=== PATIENT | male | born 1990 | race Caucasian/White ===

== ENCOUNTER 2016-10-19 09:56 | Emergency (ER) | payer OTHER ==
[~2016-10-19 09:56] MED LIST: BUSP1TAB PO; CLIN1CAP5 PO; INVE234I IM; PALI1TAB3 PO; SERO50TA PO; SERT-138 PO; SERT-141 PO; TRAZ25TA PO; TRAZ50TA4 PO; TRAZO50TA PO; XANA0.5T PO; XANA1TAB2 PO; ZOLO100T PO; ZOLO50TA PO
--- NOTE | 2016-10-19 10:36 | EDDOCDS ---
Physician Documentation [facility] Name: Chris Mckinney Age: 26 yrs Sex: Male : 1990 Arrival Date: 10/19/2016 Time: 09:56 Bed TR8 Private MD: Diandra Antonio Disposition: 10/19/16 10:26 Discharged to Home/Self Care. Impression: Cellulitis and abscess of mouth, Dental caries, Gingivitis and periodontal diseases. - Condition is Stable. - Discharge Instructions: Dental Abscess, Dental Pain, Gingivitis, [id number]-[id number]. - Prescriptions for Clindamycin HCl 300 mg Oral Capsule - take 1 capsule by ORAL route every 6 hours; 40 capsule. - Medication Reconciliation, Local Pharmacy Hours form. - Follow up: Diandra Antonio; When: Call to arrange an appointment; Reason: Further diagnostic work-up, Recheck today's complaints, Continuance of care. - Problem is new. - Symptoms are unchanged. Historical: - Allergies: PENICILLINS (Anaphylaxis); - Home Meds: 1. Invega Sustenna 234 mg/1.5 mL intramuscular syrg 1.5 mL once moly (Last dose: 09/2016) 2. trazodone 25 mg Oral tab 1 tab nightly (Last dose: 10/18/2016) 3. Zoloft 200 mg Oral tab 1 tab once daily (Last dose: 10/19/2016 08:00) - PMHx: ADD; ADHD; Anxiety; Bipolar disorder; Depression; OCD; ODD; Tourette's Syndrome; - PSHx: none; - Social history: Smoking status: Patient uses tobacco products, light tobacco smoker. No barriers to communication noted, The patient speaks fluent Gambian. - Family history: Not pertinent. - : The pt / caregiver states he / she is not on anticoagulants. Home medication list is obtained from the patient. - Exposure Risk Screening:: None identified. Vital Signs: 10/19 09:57 BP 154 / 85; Pulse 94; Resp 18; Temp 97.1(O); Pulse Ox 99% ; Weight 63.5 kg / 139.99 elp lbs; Height 5 ft. 11 in. (180.34 cm); Pain 8/10; 09:57 Body Mass Index 19.53 (63.50 kg, 180.34 cm) elp MDM: 10:34 Financial registration complete. lg Signatures: Zoë Golden, RN RN dls Berenice Horton, Reg Reg lg Alistair Myers PA PA btw Castle, Jennifer, RN RN jc4 MTDD
--- NOTE | 2016-10-19 10:37 | EDDOCDS ---
Nurse's Notes [facility] Name: Chris Mckinney Age: 26 yrs Sex: Male : 1990 Arrival Date: 10/19/2016 Time: 09:56 Bed TR8 Private MD: Diandra Antonio Diagnosis: Cellulitis and abscess of mouth;Dental caries;Gingivitis and periodontal diseases Presentation: 10/19 10:06 Presenting complaint: Patient states: left jaw swelling since yesterday. States has jc4 appointment with [facility] on 10/21. Adult Sepsis Screening: The patient does not have new or worsening altered mentation. Patient's respiratory rate is less than 22. Systolic blood pressure is greater than 100. Patient has a qSOFA score of 0- Negative Sepsis Screen. Suicide/Homicide risk assessment- the patient denies having any suicidal and/or homicidal ideations and does not present with any other emotional, behavioral or mental health complaints. Status: Patient is not a sales service rep or dependent. Transition of care: patient was not received from another setting of care. 10:06 Acuity: SALMA Level 5 jc4 10:06 Method Of Arrival: Walkin/Carried/Asstd jc4 Triage Assessment: 10:08 General: Appears in no apparent distress. Pain: Pain currently is 8 out of 10 on a pain jc4 scale. Pt Declines HIV testing. Historical: - Allergies: PENICILLINS (Anaphylaxis); - Home Meds: 1. Invega Sustenna 234 mg/1.5 mL intramuscular syrg 1.5 mL once moly (Last dose: 09/2016) 2. trazodone 25 mg Oral tab 1 tab nightly (Last dose: 10/18/2016) 3. Zoloft 200 mg Oral tab 1 tab once daily (Last dose: 10/19/2016 08:00) - PMHx: ADD; ADHD; Anxiety; Bipolar disorder; Depression; OCD; ODD; Tourette's Syndrome; - PSHx: none; - Social history: Smoking status: Patient uses tobacco products, light tobacco smoker. No barriers to communication noted, The patient speaks fluent German. - Family history: Not pertinent. - : The pt / caregiver states he / she is not on anticoagulants. Home medication list is obtained from the patient. - Exposure Risk Screening:: None identified. Screenin:33 Screening information is obtained from the patient. Primary language is German. Fall dls risk: No risks identified. Assistance ADL's: requires no assistance with activities of daily living. Abuse/DV Screen: The patient / caregiver reports he/she is: not in a situation that causes fear, pain or injury. Nutritional screening: No deficits noted. Advance Directives: Currently, there is no health care proxy. There is no active DNR order. There is no living will. There is no Power of Beader Tender. Advance directive information has not previously been placed in an [facility] medical record. home support is adequate. Assessment: 10:33 General: Appears uncomfortable, well developed, well nourished, well groomed, Behavior dls is cooperative. Awake, alert, oriented. Skin warm and dry. Moves all extremities. Bilateral breath sounds clear. Respirations unlabored. Abdomen soft, non-tender. No apparent distress. The patient / caregiver is instructed regarding the plan of care and ED course. Vital Signs: 09:57 BP 154 / 85; Pulse 94; Resp 18; Temp 97.1(O); Pulse Ox 99% ; Weight 63.5 kg; Height 5 elp ft. 11 in. (180.34 cm); Pain 8/10; 09:57 Body Mass Index 19.53 (63.50 kg, 180.34 cm) [facility] Vitals: 09:57 Log In Time: October 19, 2016 at 09:55. [facility] ED Course: 09:57 Patient visited by Nilam Leong PCA. elp 09:57 Diandra Antonio is Private Physician. elp 09:57 Patient moved to Waiting elp 09:58 Patient visited by Nilam Leong PCA. elp 09:58 Patient moved to Pre RCE elp 10:07 Triage Initiated jc4 10:09 Patient moved to Triage 1 jc4 10:12 [facility]. btw 10:12 Candi Noe MD is Attending Physician. btw 10:12 Patient visited by Alistair Myers PA. btw 10:25 Diandra Antonio is Referral Physician. btw 10:32 Patient moved to TR8 dls 10:33 Patient has correct armband on for positive identification. Bed in low position. Call dls light in reach. 10:34 No IV's were initiated during this patient's visit. No procedures done that require dls assistance. Order Results: There are currently no results for this order. Outcome: 10:26 Discharge ordered by Provider. btw 10:33 The following High Risk Discharge criteria are identified: None. Discharged to home dls ambulatory. Condition: stable. Discharge instructions given to patient, Instructed on discharge instructions, follow up and referral plans. medication usage, Demonstrated understanding of instructions, medications, Pt was receptive of discharge instructions/ teaching. Prescriptions given X 1. No special radiology studies were completed. 10:34 Discharge Assessment: Patient awake, alert and oriented x 3. No cognitive and/or dls functional deficits noted. Patient verbalized understanding of disposition instructions. patient administered narcotics - no. The following High Risk Discharge criteria are identified: None. Discharged to home ambulatory. Property sent home with patient. 10:35 Patient left the ED. dls Signatures: Zoë Golden, RN RN Alistair Rahman PA PA btw Castle, Jennifer RN RN jc4 Nilam Leong, OLEGARIO CAUL DRESSER elp ALBERTO
--- NOTE | 2016-10-22 10:49 | EDDOCDS ---
Nurse's Notes [facility] Name: Chris Mckinney Age: 26 yrs Sex: Male : 1990 Arrival Date: 10/19/2016 Time: 09:56 Bed TR8 Private MD: Diandra Antonio Diagnosis: Cellulitis and abscess of mouth;Dental caries;Gingivitis and periodontal diseases Presentation: 10/19 10:06 Presenting complaint: Patient states: left jaw swelling since yesterday. States has jc4 appointment with [facility] on 10/21. Adult Sepsis Screening: The patient does not have new or worsening altered mentation. Patient's respiratory rate is less than 22. Systolic blood pressure is greater than 100. Patient has a qSOFA score of 0- Negative Sepsis Screen. Suicide/Homicide risk assessment- the patient denies having any suicidal and/or homicidal ideations and does not present with any other emotional, behavioral or mental health complaints. Status: Patient is not a x ray service technician or dependent. Transition of care: patient was not received from another setting of care. 10:06 Acuity: SALMA Level 5 jc4 10:06 Method Of Arrival: Walkin/Carried/Asstd jc4 Triage Assessment: 10:08 General: Appears in no apparent distress. Pain: Pain currently is 8 out of 10 on a pain jc4 scale. Pt Declines HIV testing. Historical: - Allergies: PENICILLINS (Anaphylaxis); - Home Meds: 1. Invega Sustenna 234 mg/1.5 mL intramuscular syrg 1.5 mL once moly (Last dose: 09/2016) 2. trazodone 25 mg Oral tab 1 tab nightly (Last dose: 10/18/2016) 3. Zoloft 200 mg Oral tab 1 tab once daily (Last dose: 10/19/2016 08:00) - PMHx: ADD; ADHD; Anxiety; Bipolar disorder; Depression; OCD; ODD; Tourette's Syndrome; - PSHx: none; - Social history: Smoking status: Patient uses tobacco products, light tobacco smoker. No barriers to communication noted, The patient speaks fluent Honduran. - Family history: Not pertinent. - : The pt / caregiver states he / she is not on anticoagulants. Home medication list is obtained from the patient. - Exposure Risk Screening:: None identified. Screenin:33 Screening information is obtained from the patient. Primary language is Honduran. Fall dls risk: No risks identified. Assistance ADL's: requires no assistance with activities of daily living. Abuse/DV Screen: The patient / caregiver reports he/she is: not in a situation that causes fear, pain or injury. Nutritional screening: No deficits noted. Advance Directives: Currently, there is no health care proxy. There is no active DNR order. There is no living will. There is no Power of Edgerman. Advance directive information has not previously been placed in an [facility] medical record. home support is adequate. Assessment: 10:33 General: Appears uncomfortable, well developed, well nourished, well groomed, Behavior dls is cooperative. Awake, alert, oriented. Skin warm and dry. Moves all extremities. Bilateral breath sounds clear. Respirations unlabored. Abdomen soft, non-tender. No apparent distress. The patient / caregiver is instructed regarding the plan of care and ED course. Vital Signs: 09:57 BP 154 / 85; Pulse 94; Resp 18; Temp 97.1(O); Pulse Ox 99% ; Weight 63.5 kg; Height 5 elp ft. 11 in. (180.34 cm); Pain 8/10; 09:57 Body Mass Index 19.53 (63.50 kg, 180.34 cm) [facility] Vitals: 09:57 Log In Time: October 19, 2016 at 09:55. [facility] ED Course: 09:57 Patient visited by Nilam Leong PCA. elp 09:57 Diandra Antonio is Private Physician. elp 09:57 Patient moved to Waiting elp 09:58 Patient visited by Nilam Leong PCA. elp 09:58 Patient moved to Pre RCE elp 10:07 Triage Initiated jc4 10:09 Patient moved to Triage 1 jc4 10:12 [facility]air Myers [facility]. btw 10:12 Candi Noe MD is Attending Physician. btw 10:12 Patient visited by Alistair Myers PA. btw 10:25 Diandra Antonio is Referral Physician. btw 10:32 Patient moved to TR8 dls 10:33 Patient has correct armband on for positive identification. Bed in low position. Call dls light in reach. 10:34 No IV's were initiated during this patient's visit. No procedures done that require dls assistance. 10:39 [facility] Payment Agreement was scanned into [employer] and attached to record. dm19 11:53 T-Sheet-- Draft Copy was scanned into [employer] and attached to record. seh 14:10 T-Sheet-- Draft Copy was scanned into [employer] and attached to record. gb Order Results: There are currently no results for this order. Outcome: 10:26 Discharge ordered by Provider. btw 10:33 The following High Risk Discharge criteria are identified: None. Discharged to home dls ambulatory. Condition: stable. Discharge instructions given to patient, Instructed on discharge instructions, follow up and referral plans. medication usage, Demonstrated understanding of instructions, medications, Pt was receptive of discharge instructions/ teaching. Prescriptions given X 1. No special radiology studies were completed. 10:34 Discharge Assessment: Patient awake, alert and oriented x 3. No cognitive and/or dls functional deficits noted. Patient verbalized understanding of disposition instructions. patient administered narcotics - no. The following High Risk Discharge criteria are identified: None. Discharged to home ambulatory. Property sent home with patient. 10:35 Patient left the ED. dls Signatures: Zoë Golden, ANGELINE RN dls Ashtyn Blair, Reg Alistair Velazquez PA PA btw Castle, Jennifer, RN RN jc4 Nilam Leong, DEVELOPER PROGRAMMER DEVELOPER PROGRAMMER shree Hunter, Dara Goodrich dm19 Chart Complete MTDD
--- NOTE | 2016-10-22 10:49 | EDDOCDS ---
Physician Documentation [facility] Name: Chris Mckinney Age: 26 yrs Sex: Male : 1990 Arrival Date: 10/19/2016 Time: 09:56 Bed TR8 Private MD: Diandra Antonio Disposition: 10/19/16 10:26 Discharged to Home/Self Care. Impression: Cellulitis and abscess of mouth, Dental caries, Gingivitis and periodontal diseases. - Condition is Stable. - Discharge Instructions: Dental Abscess, Dental Pain, Gingivitis, Xqtz-in-[id number]. - Prescriptions for Clindamycin HCl 300 mg Oral Capsule - take 1 capsule by ORAL route every 6 hours; 40 capsule. - Medication Reconciliation, Local Pharmacy Hours form. - Follow up: Diandra Antonio; When: Call to arrange an appointment; Reason: Further diagnostic work-up, Recheck today's complaints, Continuance of care. - Problem is new. - Symptoms are unchanged. Historical: - Allergies: PENICILLINS (Anaphylaxis); - Home Meds: 1. Invega Sustenna 234 mg/1.5 mL intramuscular syrg 1.5 mL once moly (Last dose: 09/2016) 2. trazodone 25 mg Oral tab 1 tab nightly (Last dose: 10/18/2016) 3. Zoloft 200 mg Oral tab 1 tab once daily (Last dose: 10/19/2016 08:00) - PMHx: ADD; ADHD; Anxiety; Bipolar disorder; Depression; OCD; ODD; Tourette's Syndrome; - PSHx: none; - Social history: Smoking status: Patient uses tobacco products, light tobacco smoker. No barriers to communication noted, The patient speaks fluent Lebanese. - Family history: Not pertinent. - : The pt / caregiver states he / she is not on anticoagulants. Home medication list is obtained from the patient. - Exposure Risk Screening:: None identified. Vital Signs: 10/19 09:57 BP 154 / 85; Pulse 94; Resp 18; Temp 97.1(O); Pulse Ox 99% ; Weight 63.5 kg / 139.99 elp lbs; Height 5 ft. 11 in. (180.34 cm); Pain 8/10; 09:57 Body Mass Index 19.53 (63.50 kg, 180.34 cm) elp MDM: 10:34 Financial registration complete. lg 10:39 [facility] Payment Agreement was scanned into [employer] and attached to record. dm19 11:53 T-Sheet-- Draft Copy was scanned into [employer] and attached to record. se 14:10 T-Sheet-- Draft Copy was scanned into [employer] and attached to record. gb Signatures: Zoë Golden RN ANGELINE dls Ashtyn Blair, Reg Reg gb Berenice Horton, Reg Reg lg Alistair Myers PA PA btw Castle, Jennifer, RN RN jc4 Patty Hunter Diane dm19 The chart was reviewed and I authenticate all verbal orders and agree with the evaluation and treatment provided.Attachments: 10:39 [facility] Payment Agreement dm19 14:10 T-Sheet-- Draft Copy gb Chart Complete MTDD
--- NOTE | 2016-10-22 10:49 | EDDOCDS ---
Physician Documentation [facility] Name: Chris Mckinney Age: 26 yrs Sex: Male : 1990 Arrival Date: 10/19/2016 Time: 09:56 Bed TR8 Private MD: Diandra Antonio Disposition: 10/19/16 10:26 Discharged to Home/Self Care. Impression: Cellulitis and abscess of mouth, Dental caries, Gingivitis and periodontal diseases. - Condition is Stable. - Discharge Instructions: Dental Abscess, Dental Pain, Gingivitis, Yvsc-yx-Fmdh. - Prescriptions for Clindamycin HCl 300 mg Oral Capsule - take 1 capsule by ORAL route every 6 hours; 40 capsule. - Medication Reconciliation, Local Pharmacy Hours form. - Follow up: Diandra Antonio; When: Call to arrange an appointment; Reason: Further diagnostic work-up, Recheck today's complaints, Continuance of care. - Problem is new. - Symptoms are unchanged. Historical: - Allergies: PENICILLINS (Anaphylaxis); - Home Meds: 1. Invega Sustenna 234 mg/1.5 mL intramuscular syrg 1.5 mL once moly (Last dose: 09/2016) 2. trazodone 25 mg Oral tab 1 tab nightly (Last dose: 10/18/2016) 3. Zoloft 200 mg Oral tab 1 tab once daily (Last dose: 10/19/2016 08:00) - PMHx: ADD; ADHD; Anxiety; Bipolar disorder; Depression; OCD; ODD; Tourette's Syndrome; - PSHx: none; - Social history: Smoking status: Patient uses tobacco products, light tobacco smoker. No barriers to communication noted, The patient speaks fluent Stateless. - Family history: Not pertinent. - : The pt / caregiver states he / she is not on anticoagulants. Home medication list is obtained from the patient. - Exposure Risk Screening:: None identified. Vital Signs: 10/19 09:57 BP 154 / 85; Pulse 94; Resp 18; Temp 97.1(O); Pulse Ox 99% ; Weight 63.5 kg / 139.99 elp lbs; Height 5 ft. 11 in. (180.34 cm); Pain 8/10; 09:57 Body Mass Index 19.53 (63.50 kg, 180.34 cm) elp MDM: 10:34 Financial registration complete. lg 10:39 [facility] Payment Agreement was scanned into [employer] and attached to record. dm19 11:53 T-Sheet-- Draft Copy was scanned into [employer] and attached to record. se 14:10 T-Sheet-- Draft Copy was scanned into [employer] and attached to record. gb Signatures: Zoë Golden RN ANGELINE dls Ashtyn Blair, Reg Reg gb Berenice Horton, Reg Reg lg Alistair Myers PA PA btw Castle, Jennifer, RN RN jc4 Patty Hunter Diane dm19 The chart was reviewed and I authenticate all verbal orders and agree with the evaluation and treatment provided.Attachments: 10:39 [facility] Payment Agreement dm19 14:10 T-Sheet-- Draft Copy gb Chart Complete MTDD
== END 2016-10-19 10:35 | disposition home or self-care (01) ==
LOC: M ED 09:56
DX: K05.219 Aggressive periodontitis, localized, unspecified severity (principal); K02.9 Dental caries, unspecified; K05.00 Acute gingivitis, plaque induced; F90.9 Attention-deficit hyperactivity disorder, unspecified type; F41.9 Anxiety disorder, unspecified; F31.9 Bipolar disorder, unspecified; F42.9 Obsessive-compulsive disorder, unspecified; F91.3 Oppositional defiant disorder; F95.2 Tourette's disorder; F17.200 Nicotine dependence, unspecified, uncomplicated; Z79.899 Other long term (current) drug therapy; Z88.0 Allergy status to penicillin

== ENCOUNTER 2017-09-14 15:17 | Emergency (ER) | payer MEDICAID, OTHER, SELFPAY ==
[~2017-09-14] VITALS: Ht 180.3 cm; Wt 70.4 kg
[~2017-09-14 15:17] MED LIST changes: +CLIN150C14 PO; -CLIN1CAP5 PO; -SERT-141 PO; +SERT50TA PO; +TRAZ50TA11 PO; -TRAZ50TA4 PO
[2017-09-14] MEDS ORDERED: REME15TA PO (15:36)
[2017-09-14] MEDS ORDERED: NS 1,000 ML IV ONE (16:00)
--- NOTE | 2017-09-14 16:28 | REP ---
CT Head without contrast HISTORY: Altered mental status COMPARISON: 05/22/2014 There is no intraparenchymal hemorrhage, acute infarct, mass or midline shift. The ventricular system is normal in appearance. There is no extra cerebral collection. There is no fracture. The visualized sinuses are clear. IMPRESSION: There is no intracranial lesion. Signed by Jose Alfredo Rasmussen MD 09/14/2017 04:20 P
[2017-09-14 16:41] LABS: BASO # 0.1 10^3/uL (0.0-0.2); BASO % 0.5 % (0.0-1.0); EOS # 0.2 10^3/uL (0.0-0.50); EOS % 1.4 % (0.0-3.0); IMMATURE GRANULOCYTE % 0.6 % (0-0); LYMPH # 1.4 10^3/uL (1.5-6.5); LYMPH % 10.4 % (24.0-44.0); MEAN CORPUSCULAR HGB CONC 35.2 g/dl (32.0-36.5); MEAN CORPUSCULAR VOLUME 87.9 fl (80.0-96.0); MONO % 7.8 % (0.0-5.0); NEUTROPHILS # 10.5 10^3/uL (1.8-7.7); NEUTROPHILS % 79.3 % (36.0-66.0); PLATELET COUNT, AUTOMATED 290 10^3/uL (150-450); WHITE BLOOD COUNT 13.3 10^3/uL (4.0-10.0)
[2017-09-14] MEDS ORDERED: IBUPROFEN 600 MG TAB PO ONE (17:00)
[2017-09-14 17:20] LABS: ALBUMIN 4.3 GM/DL (3.2-5.2); ALBUMIN/GLOBULIN RATIO 1.23 (1.00-1.93); ALKALINE PHOSPHATASE 80 U/L (45-117); ALT/SGPT 32 U/L (12-78); ANION GAP 9 MEQ/L (8-16); AST/SGOT 17 U/L (7-37); BILIRUBIN,DIRECT 0.1 MG/DL (0.0-0.2); BILIRUBIN,TOTAL 0.6 MG/DL (0.2-1.0); BLOOD UREA NITROGEN 12 MG/DL (7-18); CALCIUM LEVEL 9.2 MG/DL (8.5-10.1); CARBON DIOXIDE LEVEL 27 MEQ/L (21-32); CHLORIDE LEVEL 102 MEQ/L (98-107); CREATININE FOR GFR 1.02 MG/DL (0.70-1.30); GLOMERULAR FILTRATION RATE > 60.0 (>60); GLUCOSE, FASTING 85 MG/DL (70-105); POTASSIUM SERUM 3.4 MEQ/L (3.5-5.1); SODIUM LEVEL 138 MEQ/L (136-145); TOTAL PROTEIN 7.8 GM/DL (6.4-8.2)
[2017-09-14 17:21] LABS: MICROSCOPIC INDICATED? MAN YES (NO)
[2017-09-14 17:27] LABS: METHADONE URINE NEGATIVE (NEGATIVE)
[2017-09-14 17:32] LABS: SQUAMOUS EPITHELIAL CELL URINE NONE SEEN /hpf (SMALL AMT)
[2017-09-14 17:37] LABS: BACTERIA, URINE NONE SEEN; HYALINE CAST, URINE NONE SEEN /lpf (0-1)
[2017-09-14 17:38] LABS: MICROSCOPIC EXAM PERFORMED
[2017-09-14 18:11] VITALS: BP 134/90
--- NOTE | 2017-09-14 18:15 | ECGEPIP ---
Stationary ECG Study [facility] - ED Test Date: 2017-09-14 Pat Name: MERRITT GRIMES Department: Room: - Gender: M Personnel Scheduler: LUCILA : 1990 Requested By: MINESH SILVERIO Order Number: [id number] Reading MD: Scar Rivero Measurements Intervals [place] Rate: 87 P: 46 [place]: 133 QRS: 38 QRSD: 94 T: 44 QT: 355 QTc: 428 Interpretive Statements SINUS RHYTHM POSSIBLE LEFT ATRIAL ENLARGEMENT Electronically Signed On 09-14-2017 18:14:44 EST by Scar Rivero
== END 2017-09-14 18:30 | disposition home or self-care (01) ==
LOC: M ED 15:17 → EDBD 15:17 → M ED 18:30
DX: R56.9 Unspecified convulsions (principal); Z72.0 Tobacco use
CPT/HCPCS: 70450; 80048; 80076; 80307; 81000; 82550; 82553; 83605; 84443; 85025; 93005; 93041; 94760; 96360; 96361; 99285; G0480

== ENCOUNTER 2018-07-25 16:36 | Emergency (ER) | payer MEDICAID ==
[2018-07-25 17:35] LABS: HEMATOCRIT 42.5 % (42.0-52.0); MEAN CORPUSCULAR HEMOGLOBIN 31.8 pg (27.0-33.0); MEAN CORPUSCULAR HGB CONC 35.3 g/dl (32.0-36.5); PLATELET COUNT, AUTOMATED 219 10^3/uL (150-450); RED BLOOD COUNT 4.72 10^6/uL (4.30-6.10); RED CELL DISTRIBUTION WIDTH 13.8 % (11.5-14.5)
[2018-07-25 17:47] LABS: AMPHETAMINES LEVEL URINE NEGATIVE (NEGATIVE); BARBITURATES URINE NEGATIVE (NEGATIVE); BENZODIAZEPINES URINE NEGATIVE (NEGATIVE); CANNABINOIDS URINE POSITIVE (NEGATIVE); COCAINE METABOLITE URINE NEGATIVE (NEGATIVE); METHADONE URINE NEGATIVE (NEGATIVE); OPIATES URINE NEGATIVE (NEGATIVE); PHENCYCLIDINE URINE NEGATIVE (NEGATIVE)
[2018-07-25 18:18] LABS: ACETAMINOPHEN LEVEL < 2.0 UG/ML (10.0-30.0); ALBUMIN 4.3 GM/DL (3.2-5.2); ALBUMIN/GLOBULIN RATIO 1.59 (1.00-1.93); ALKALINE PHOSPHATASE 58 U/L (45-117); ALT/SGPT 24 U/L (12-78); ANION GAP 6 MEQ/L (8-16); AST/SGOT 13 U/L (7-37); BILIRUBIN,DIRECT 0.2 MG/DL (0.0-0.2); BILIRUBIN,TOTAL 0.6 MG/DL (0.2-1.0); BLOOD UREA NITROGEN 19 MG/DL (7-18); CALCIUM LEVEL 8.8 MG/DL (8.5-10.1); CARBON DIOXIDE LEVEL 27 MEQ/L (21-32); CHLORIDE LEVEL 109 MEQ/L (98-107); CREATININE FOR GFR 0.89 MG/DL (0.70-1.30); ETHYL ALCOHOL (ETHANOL) < 0.003 % (0.000-0.010); GLOMERULAR FILTRATION RATE > 60.0 (>60); GLUCOSE, FASTING 131 MG/DL (70-100); POTASSIUM SERUM 3.5 MEQ/L (3.5-5.1); SALICYLATE LEVEL 5.4 MG/DL (5.0-30.0); SODIUM LEVEL 142 MEQ/L (136-145); THYROID STIMULATING HORMONE 0.971 uIU/ML (0.358-3.740)
[2018-07-25] MEDS: LORazepam 0.5 MG TAB PO (18:28)
== END 2018-07-26 00:03 ==
LOC: M ED 07-26 00:03
DX: R45.850 Homicidal ideations (principal)
CPT/HCPCS: 93005

== ENCOUNTER → 2019-05-11 | Outpatient (CLI) | payer OTHER ==
[~2019-05-11] MED LIST changes: +REME15TA PO; +SERT-141 PO; -SERT50TA PO; +TRAZ-252 PO; +TRAZ1TAB10 PO; +TRAZ1TAB6 PO; -TRAZ25TA PO; -TRAZ50TA11 PO; -TRAZO50TA PO
--- NOTE | 2019-05-12 09:27 | ECGEPIP ---
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
== END ==
LOC: M EKG 12:57
PROVIDERS: ATTEND Nurse Practitioner Psychiatric/Mental Health
DX: F90.2 Attention-deficit hyperactivity disorder, combined type (principal)

== ENCOUNTER 2019-06-17 14:05 | Emergency (ER) | payer OTHER ==
[~2019-06-17] VITALS: Ht 182.9 cm; Wt 68.2 kg
[2019-06-17] MEDS ORDERED: BANO25TA PO (14:31)
[2019-06-17] MEDS ORDERED: REME15TA2 PO (14:31)
[2019-06-17] MEDS ORDERED: NIFE30TA50 PO (14:31)
[2019-06-17] MEDS ORDERED: FLUV25TA2 PO (14:31)
[2019-06-17] MEDS ORDERED: CLONI1TA PO (14:31)
[2019-06-17] MEDS ORDERED: HALO5TA PO (14:31)
[2019-06-17] MEDS ORDERED: TOPA100T12 PO (14:31)
[2019-06-17] MEDS ORDERED: OLAN15TA PO (14:31)
[2019-06-17] MEDS ORDERED: SIMV20TA2 PO (14:31)
[2019-06-17 15:15] LABS: HEMATOCRIT 45.5 % (42.0-52.0); HEMOGLOBIN 15.9 g/dl (13.5-17.5); MEAN CORPUSCULAR HEMOGLOBIN 31.4 pg (27.0-33.0); MEAN CORPUSCULAR HGB CONC 34.9 g/dl (32.0-36.5); MEAN CORPUSCULAR VOLUME 89.9 fl (80.0-96.0); PLATELET COUNT, AUTOMATED 197 10^3/uL (150-450); RED BLOOD COUNT 5.06 10^6/uL (4.30-6.10); WHITE BLOOD COUNT 10.7 10^3/uL (4.0-10.0)
[2019-06-17 15:47] LABS: AMPHETAMINES LEVEL URINE NEGATIVE (NEGATIVE); BARBITURATES URINE NEGATIVE (NEGATIVE); BENZODIAZEPINES URINE NEGATIVE (NEGATIVE); CANNABINOIDS URINE POSITIVE (NEGATIVE); COCAINE METABOLITE URINE NEGATIVE (NEGATIVE); METHADONE URINE NEGATIVE (NEGATIVE); OPIATES URINE NEGATIVE (NEGATIVE); PHENCYCLIDINE URINE NEGATIVE (NEGATIVE)
[2019-06-17 16:11] LABS: ACETAMINOPHEN LEVEL < 2.0 UG/ML (10.0-30.0); ALBUMIN 4.7 GM/DL (3.2-5.2); ALT/SGPT 17 U/L (12-78); BILIRUBIN,DIRECT 0.2 MG/DL (0.0-0.2); BILIRUBIN,TOTAL 0.6 MG/DL (0.2-1.0); BLOOD UREA NITROGEN 19 MG/DL (7-18); CALCIUM LEVEL 9.4 MG/DL (8.5-10.1); CARBON DIOXIDE LEVEL 17 MEQ/L (21-32); CHLORIDE LEVEL 114 MEQ/L (98-107); CREATININE FOR GFR 1.11 MG/DL (0.70-1.30); ETHYL ALCOHOL (ETHANOL) < 0.003 % (0.000-0.010); GLOMERULAR FILTRATION RATE > 60.0 (>60); GLUCOSE, FASTING 96 MG/DL (70-100); POTASSIUM SERUM 3.6 MEQ/L (3.5-5.1); SALICYLATE LEVEL 6.4 MG/DL (5.0-30.0); SODIUM LEVEL 141 MEQ/L (136-145); THYROID STIMULATING HORMONE 0.416 uIU/ML (0.358-3.740); TOTAL PROTEIN 7.7 GM/DL (6.4-8.2)
[2019-06-17] MEDS ORDERED: NICOTINE 21MG/24HR 1 EA TRANSDERMAL TD ONE (16:45)
[2019-06-17] MEDS ORDERED: ACETAMINOPHEN 500 MG TAB PO ONE (17:15)
[2019-06-18] MEDS ORDERED: cloNIDine 0.1 MG TAB PO ONE (01:30)
[2019-06-18] MEDS ORDERED: OLANZapine 5 MG TAB PO ONE (01:30)
[2019-06-18] MEDS ORDERED: MIRTAZAPINE 15 MG TAB PO ONE (01:43)
--- NOTE | 2019-06-18 07:14 | ECGEPIP ---
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
[2019-06-18 08:32] VITALS: BP 131/85
== END 2019-06-18 08:35 ==
LOC: M ED 14:05
DX: F29 Unspecified psychosis not due to a substance or known physiological condition (principal); F17.200 Nicotine dependence, unspecified, uncomplicated; F31.9 Bipolar disorder, unspecified; F90.9 Attention-deficit hyperactivity disorder, unspecified type; F41.9 Anxiety disorder, unspecified; F42.9 Obsessive-compulsive disorder, unspecified; F95.2 Tourette's disorder; Z79.899 Other long term (current) drug therapy; Z88.0 Allergy status to penicillin
CPT/HCPCS: 80048; 80076; 80307; 84443; 85027; 93005; 99284; G0480

== ENCOUNTER 2019-07-02 12:28 | Emergency (ER) | payer OTHER ==
[~2019-07-02] VITALS: Ht 182.9 cm; Wt 68.2 kg
[~2019-07-02 12:28] MED LIST changes: +BANO25TA PO; +CLONI1TA PO; +FLUV25TA2 PO; +HALO5TA PO; +NIFE30TA50 PO; +OLAN15TA PO; +REME15TA2 PO; +SIMV20TA2 PO; +TOPA100T12 PO
[2019-07-02] MEDS ORDERED: ATOR1TAB19 (13:14)
[2019-07-02 16:26] VITALS: BP 139/94
== END 2019-07-02 16:28 | disposition home or self-care (01) ==
LOC: EDBD 12:28 → M ED 12:28
DX: F41.9 Anxiety disorder, unspecified (principal); G43.909 Migraine, unspecified, not intractable, without status migrainosus; F95.2 Tourette's disorder; I10 Essential (primary) hypertension; E78.00 Pure hypercholesterolemia, unspecified; J45.909 Unspecified asthma, uncomplicated; F90.9 Attention-deficit hyperactivity disorder, unspecified type; F31.9 Bipolar disorder, unspecified; F42.9 Obsessive-compulsive disorder, unspecified; Z79.899 Other long term (current) drug therapy; Z88.0 Allergy status to penicillin

== ENCOUNTER 2019-07-02 17:21 | Emergency (ER) | payer OTHER ==
[~2019-07-02] VITALS: Ht 182.9 cm; Wt 68.2 kg
[~2019-07-02 17:21] MED LIST changes: +ATOR1TAB19
[2019-07-02 18:30] LABS: HEMATOCRIT 46.2 % (42.0-52.0); HEMOGLOBIN 15.9 g/dl (13.5-17.5); MEAN CORPUSCULAR HEMOGLOBIN 31.9 pg (27.0-33.0); MEAN CORPUSCULAR HGB CONC 34.4 g/dl (32.0-36.5); MEAN CORPUSCULAR VOLUME 92.8 fl (80.0-96.0); PLATELET COUNT, AUTOMATED 248 10^3/uL (150-450); RED BLOOD COUNT 4.98 10^6/uL (4.30-6.10); WHITE BLOOD COUNT 7.6 10^3/uL (4.0-10.0)
[2019-07-02 18:57] LABS: AMPHETAMINES LEVEL URINE NEGATIVE (NEGATIVE); BARBITURATES URINE NEGATIVE (NEGATIVE); BENZODIAZEPINES URINE NEGATIVE (NEGATIVE); CANNABINOIDS URINE POSITIVE (NEGATIVE); COCAINE METABOLITE URINE NEGATIVE (NEGATIVE); METHADONE URINE NEGATIVE (NEGATIVE); OPIATES URINE NEGATIVE (NEGATIVE); PHENCYCLIDINE URINE NEGATIVE (NEGATIVE)
[2019-07-02 19:10] LABS: ACETAMINOPHEN LEVEL < 2.0 UG/ML (10.0-30.0); ALBUMIN 4.5 GM/DL (3.2-5.2); ALT/SGPT 20 U/L (12-78); BILIRUBIN,DIRECT 0.1 MG/DL (0.0-0.2); BILIRUBIN,TOTAL 0.2 MG/DL (0.2-1.0); BLOOD UREA NITROGEN 19 MG/DL (7-18); CALCIUM LEVEL 9.1 MG/DL (8.5-10.1); CARBON DIOXIDE LEVEL 22 MEQ/L (21-32); CHLORIDE LEVEL 111 MEQ/L (98-107); CREATININE FOR GFR 0.99 MG/DL (0.70-1.30); ETHYL ALCOHOL (ETHANOL) < 0.003 % (0.000-0.010); GLOMERULAR FILTRATION RATE > 60.0 (>60); GLUCOSE, FASTING 117 MG/DL (70-100); POTASSIUM SERUM 3.8 MEQ/L (3.5-5.1); SODIUM LEVEL 141 MEQ/L (136-145); TOTAL PROTEIN 7.6 GM/DL (6.4-8.2)
[2019-07-02 21:53] VITALS: BP 133/82
== END 2019-07-02 21:56 | disposition home or self-care (01) ==
LOC: M ED 17:21
DX: F41.0 Panic disorder [episodic paroxysmal anxiety] (principal); F31.9 Bipolar disorder, unspecified; F42.9 Obsessive-compulsive disorder, unspecified; F90.9 Attention-deficit hyperactivity disorder, unspecified type; Z79.899 Other long term (current) drug therapy; Z88.0 Allergy status to penicillin
CPT/HCPCS: 36415; 80048; 80076; 80307; 84443; 85027; 99284; G0480

== ENCOUNTER → 2019-07-08 | Outpatient (CLI) | payer OTHER ==
[~2019-07-08] MED LIST changes: -SIMV20TA2 PO; +SIMV20TA22 PO
--- NOTE | 2019-07-08 21:18 | ECGEPIP ---
[facility] Test Date: 2019-07-08 Pat Name: MERRITT GRIMES Department: Room: - Gender: Male Clam Picker: DIVYA : 1990 Requested By: Clary Herndon Order Number: [id number] Reading MD: Darrian Alarcon Measurements Intervals [place] Rate: 68 P: 64 [place]: 170 QRS: 74 QRSD: 98 T: 57 QT: 387 QTc: 414 Interpretive Statements Normal sinus rhythm with sinus arrhythmia Early repolarization No significant change when compared to prior tracing of 06/17/2019 Electronically Signed on 07-08-2019 21:18:07 EDT by Darrian Alarcon
== END ==
LOC: M EKG 11:54
PROVIDERS: ATTEND Nurse Practitioner Psychiatric/Mental Health
DX: F90.0 Attention-deficit hyperactivity disorder, predominantly inattentive type (principal)

== ENCOUNTER → 2020-12-11 | Outpatient (CLI) | payer OTHER ==
[~2020-12-11] MED LIST changes: -CLIN150C14 PO; +CLIN150C15 PO; +MIRT-62 PO; -REME15TA PO
--- NOTE | 2020-12-11 15:32 | REP ---
INDICATION: RIGHT WRIST PAIN COMPARISON: None. TECHNIQUE: Four views right wrist. FINDINGS: There is no evidence of acute fracture, dislocation, or intrinsic bone disease.The joint spaces are normal. IMPRESSION: Negative right wrist series. <Electronically signed by Kenneyd Arango > 12/11/20 [id number]
== END ==
LOC: M RAD 15:12
PROVIDERS: ATTEND Physician Assistant Medical
DX: M25.531 Pain in right wrist (principal)

== ENCOUNTER 2021-08-03 21:17 | Emergency (ER) | payer OTHER ==
[~2021-08-03] VITALS: Ht 182.9 cm; Wt 68.2 kg
[~2021-08-03 21:17] MED LIST changes: -CLIN150C15 PO; +CLIN150C17 PO; -OLAN15TA PO; +OLAN15TA13 PO
--- OUTSIDE RECORDS SUMMARY | 2021-08-03 21:20 | CCD ---
Author Author Chris Perez Organization Unknown Address [address] [address] Phone Care Team Providers Care Operating Room Assistant Name Role Phone Rah Perez PCP Allergies, Adverse Reactions, Alerts Concept Allergy Name Reaction Severity Onset Date Status Documentation Date Phone Number Npid Taxonomy Code Taxonomy Desc Author Last Name Author Ju rst Name Concept Type [id number] amoxicillin difficulty breathing Active 016 [id number] Psychiatric/Mental Health Laxmi Napoles RX NORM Problem List Concept Problem Description Status Start Date Created Date Resolv ed Date Snomed Code F25.0 Schizoaffective Disorder, Bipolar type Active 08/26/2018 08/26/2018 F43.12 Post-traumatic stress disorder, chronic Active 10/29/2018 10/29/2018 F17.200 Tobacco Use Disorder, Moderate Active F12.20 Cannabis Use Disorder, Moderate Active 07/13/20 21 Medications Rx Norm Medication Route Route Concept Start Date Stop Date Dosage Mukesh quency Duration Formula Strength Dosage Form Dosage Form Code Dosage Description Medication Id Account Npid Author First Name Author Last Name Taxonomy Code Taxonomy Desc Phone Number [id number] clonazepam by mouth [id number] 07/03/2021 08/02/2021 twice a day 30 0.5 mg tablet as needed 20468 060729 [id number] Clary Herndon [id number] Nurse Practitioner [phone] [id number] Topamax by mouth [id number] 10/09/2020 09/24/2021 twice a day 30 1 00 mg tablet 65795 [id number] [id number] Clary Herndon [id number] Nurse Nhi sánchez [id number] clonidine HCl by mouth [id number] 02/21/2021 09/24/2021 twice a day 30 0.1 mg tablet as needed 55386 [id number] [id number] Clary Herndon [id number] Nurse Practitioner [phone] 359244 Zyprexa by mouth [id number] 02/21/2021 09/24/2021 at bedtime 30 20 m g tablet 09315 567869 [id number] Clary Herndon [id number] Nurse Yoel ctitioner [id number] 014732 lamotrigine by mouth [id number] 03/21/2021 09/24/2021 every morning 30 150 mg tablet 50231 730304 [id number] Clary Herndon [id number] Nurse Practitioner [phone] 322483 mirtazapine by mouth [id number] 03/21/2021 09/24/2021 at bedtime 30 45 mg tablet 14164 260421 [id number] Clary Herndon [id number] Nurse P ractitioner [id number] 127925 topiramate by mouth [id number] 06/26/2021 09/24/2021 once a day 30 50 mg tablet 53146 145070 [id number] Clary Herndon [id number] Nurse P ractitioner [id number] Social History Social History Element Description Concept Effective Date Smoking Status Current every day smoker [id number] Immunizations No Data in Section Vital Signs No Data in Section Procedures Date Concept Id Description Targeted Site Concept Targeted Site Concept Type 07/13/2021 [id number] Brief Individual Psychotherapy - 30 min CPT Patient has no history of implantable de vices Encounters Encounter Start Date End Date Encounter Type Description Diagnosis Di agnosis Desc Location Author First Name Author Last Name Npid Taxonomy Cod e Taxonomy Desc Phone Number Location Addr1 Location Addr2 Location [facility] Location [facility] Location [facility] [id number] 07/13/2021 07/13/2021 [id number] Brief Individual Psychoth erapy - 30 min F25.0 Schizoaffective disorder, bipolartype [facility] [id number] Art Therapist [id number] [address] [address] Plan of Treatment No Data in Section Lab Results No Data in Section Instructions No Data in Section Insurance Providers Insurance Id Policy Effective Date Policy Thru Date Company N claudia [id number] 2018 [employer]ob suggs
--- OUTSIDE RECORDS SUMMARY | 2021-08-03 21:20 | CCD ---
Author Author [facility] Organization [facility] Address Unknown Phone Unavailable Care Team Providers Care Schedule Analyst Name Role Phone Rha Perez Unavailable YANICK, H JIMBO STRAIGHTENING MACHINE FEEDER Unavailable Unavailable YANICK, H JIMBO STRAIGHTENING MACHINE FEEDER Unavailable Unavailable YANICK, H JIMBO STRAIGHTENING MACHINE FEEDER Unavailable Unavailable YANICK, H JIMBO STRAIGHTENING MACHINE FEEDER Unavailable Unavailable YANICK, H JIMBO STRAIGHTENING MACHINE FEEDER Unavailable Unavailable YANICK, H JIMBO STRAIGHTENING MACHINE FEEDER Unavailable Unavailable YANICK, H JIMBO STRAIGHTENING MACHINE FEEDER Unavailable Unavailable YANICK, H JIMBO STRAIGHTENING MACHINE FEEDER Unavailable Unavailable YANICK, H JIMBO STRAIGHTENING MACHINE FEEDER Unavailable Unavailable Kay Obrien Unavailable Unavailable Re-disclosure Warning The records that you are about to access may contain information from federally-assisted alcohol or drug abuse programs. If such information is present, then the following federally mandated warning applies: This information has been disclosed to you from records protected by federal confidentiality rules (42 CFR part 2). The federal rules prohibit you from making any further disclosure of this information unless further disclosure is expressly permitted by the written consent of the person to whom it pertains or as otherwise permitted by 42 CFR part 2. A general authorization for the release of medical or other information is NOT sufficient for this purpose. The Federal rules restrict any use of the information to criminally investigate or prosecute any alcohol or drug abuse patient.The records that you are about to access may contain highly sensitive health information, the redisclosure of which is protected by Article 27-F of the [place] Public Health law. If you continue you may have access to information: Regarding HIV / AIDS; Provided by facilities licensed or operated by the [facility] Office of Mental Health; or Provided by the [facility] Office for People With Developmental Disabilities. If such information is present, then the following [facility] mandated warning applies: This information has been disclosed to you from confidential records which are protected by state law. State law prohibits you from making any further disclosure of this information without the specific written consent of the person to whom it pertains, or as otherwise permitted by law. Any unauthorized further disclosure in violation of state law may result in a fine or retirement sentence or both. A general authorization for the release of medical or other information is NOT sufficient authorization for further disc losure. Allergies and Adverse Reactions Type Description Substance Reaction Status Data Source(s ) Propensity to adverse reactions to substance amoxicillin Amoxicillin 500 MG Oral Capsule difficulty breathing Active [facility] ([facility]) Propensity to adverse reactions to substance amoxicillin Amoxicillin 500 MG Oral Capsule difficulty breathing Active [facility] ([facility]) Encounters Encounter Providers Location Date Indications Data Source(s ) Brief Individual Psychotherapy - 30 min Attender: [facility] 08/03/2021 11:45:00 AM EDT - 08/03/2021 11:45:00 AM EDT [facility] ([facility]) Attender: [facility] 08/03/2021 12:00:00 AM EDT [facility] ([facility]) Brief Individual Psychotherapy - 30 min Attender: [facility] 07/13/2021 11:15:00 AM EDT - 07/13/2021 11:15:00 AM EDT [facility] ([facility]) Attender: [facility] 07/13/2021 12:00:00 AM EDT [facility] ([facility]) Attender: [facility] 06/07/2021 12:00:00 AM EDT [facility] ([facility]) Extended Individual Psychotherapy - 45 min Attender: [facility] 06/06/2021 01:00:00 AM EDT - 06/06/2021 01:00:00 AM EDT [facility] ([facility]) Extended Individual Psychotherapy - 45 min Attender: [facility] 03/29/2021 05:00:00 AM EDT - 03/29/2021 05:00:00 AM EDT [facility] ([facility]) [facility] 12:00:00 AM EDT [facility] ([facility]) Extended Individual Psychotherapy - 45 min Attender: [facility] 03/15/2021 05:00:00 AM EDT - 03/15/2021 05:00:00 AM EDT [facility] ([facility]) [facility] 03/15/2021 12:00:00 AM EDT [facility] ([facility]) Extended Individual Psychotherapy - 45 min Attender: [facility] 01/16/2021 01:15:00 AM EDT - 01/16/2021 01:15:00 AM EDT [facility] ([facility]) [facility]: [facility] 01/16/2021 12:00:00 AM EDT [facility] ([facility]) Outpatient Attender: JIMBO FANG NP [facility] hattie 01/11/2021 02:00:00 AM EDT - 01/11/2021 02:00:00 AM EDT [facility] ([facility]) Attender: JIMBO FANG NP 01/11/2021 12:00:00 AM EDT [facility] ([facility]) Brief Individual Psychotherapy - 30 min Attender: [facility] 12/28/2020 05:00:00 AM EDT - 12/28/2020 05:00:00 AM EDT [facility] ([facility]) Attender: Leomehumberto Perez 12/28/2020 12:00:00 AM EDT [facility] ([facility]) Outpatient Attender: JIMBO FANG NP [facility] hattie 12/14/2020 02:00:00 AM EST - 12/14/2020 02:00:00 AM EST [facility] ([facility]) Attender: JIMBO FANG NP 12/14/2020 12:00:00 AM EST [facility] ([facility]) TEMPMHCTelemed-Family and client [facility] 10:00:00 AM EST - 11/09/2020 10:00:00 AM EST [facility] ([facility]) Attender: Kay Obrien 11/09/2020 12:00:00 AM EST [facility] ([facility]) TEMPMHCTelemed-Family and client 1 hr. Attender: Kay Obrien [facility] 10/26/2020 10:00:00 AM EST - 10/26/2020 10:00:00 AM EST [facility] ([facility]) Attender: Kay Obrien 10/26/2020 12:00:00 AM EST [facility] ([facility]) TEMPMHCTelemed-Family and client 1 hr. [facility]/12[facility] 10:00:00 AM EST - 10/12/2020 10:00:00 AM EST [facility] ([facility]) Attender: Kay Obrien 10/12/2020 12:00:00 AM EST [facility] ([facility]) Outpatient Attender: JIMBO FANG NP [facility] Octavio kuhn 10/09/2020 02:30:00 AM EST - 10/09/2020 02:30:00 AM EST [facility] ([facility]) Attender: JIMBO FANG NP 10/09/2020 12:00:00 AM EST [facility] ([facility]) Psychotherapy - Family & Client 1 hour Attender: Kay Micah [facility] 09/28/2020 11:00:00 AM EST - 09/28/2020 11:00:00 AM EST [facility] ([facility]) Attender: Kay Obrien 09/28/2020 12:00:00 AM EST [facility] ([facility]) [id number]"Psychotherapy Attender: Kay Pryor [facility] 09/22/2020 10:00:00 AM EST - 09/22/2020 10:00:00 AM EST [facility] ([facility]) Attender: Kay Obrien 09/22/2020 12:00:00 AM EST [facility] ([facility]) Psychotherapy - Family & Client 1 hour Attender: Kayyumiko Obrien [facility] 08/17/2020 11:00:00 AM EST - 08/17/2020 11:00:00 AM EST [facility] ([facility]) Attender: Kay Obrien 08/17/2020 12:00:00 AM EST [facility] ([facility]) Outpatient Attender: JIMBO FANG NP [facility] Octavio kuhn 07/31/2020 01:00:00 AM EDT - 07/31/2020 01:00:00 AM EDT [facility] ([facility]) Attender: JIMBO FANG NP 07/31/2020 12:00:00 AM EDT [facility] ([facility]) [id number]"Psychotherapy Attender: Kay Micah Pryor [facility] Bhavesh 07/13/2020 10:00:00 AM EDT - 07/13/2020 10:00:00 AM EDT [facility] ([facility]) Attender: Kay Obrien 07/13/2020 12:00:00 AM EDT [facility] ([facility]) Outpatient Attender: JIMBO FANG NP [facility] Octavio kuhn 07/04/2020 10:30:00 AM EDT - 07/04/2020 10:30:00 AM EDT [facility] ([facility]) Attender: JIMBO FANG NP 07/04/2020 12:00:00 AM EDT [facility] ([facility]) TEMPMHCTelemed 30" Psychotherapy Attender: Kay Micah [facility] Bhavesh 06/15/2020 10:30:00 AM EDT - 06/15/2020 10:30:00 AM EDT [facility] ([facility]) Attender: Kay Obrien 06/15/2020 12:00:00 AM EDT [facility] ([facility]) Functional Status Immunizations Vaccine Date Status Description Data Source(s) COVID-19 VACCINE Moderna 04/26/2021 12:00:00 AM EDT completed [facility] Vaccine Series Complete: YESThis Data wa s Submitted to [facility] Via [employer]. COVID-19 VACCINE Moderna 03/29/2021 12:00:00 AM EDT completed [facility] Vaccine Series Complete: NOThis Data was Submitted to [facility] Via [employer]. Medications Medication Brand Name Start Date Product Form Dose Route Admi nistrative Instructions Pharmacy Instructions Status Indications Reaction Description Data Source(s) Clonazepam 0.5 MG Oral Tablet clonazepam 08/03/2021 12:00:00 AM EDT 0.5 mg by mouth completed <td ID="Medica tionRxNorm_1">239675</td><td ID="MedicationMedication_1">clonazepam</td><td ID="MedicationRoute_1">by mouth</td><td ID="MedicationRouteConcept_1">R22267</td><td ID="MedicationStartDate_1">08/03/2021</td><td ID="MedicationStopDate_1">09/02/2021</td><td ID="MedicationDosageFrequency_1">twice a day</td><td ID="MedicationDuration_1">30</td><td ID="MedicationFormulaStrength_1">0.5 mg</td><td ID="MedicationDosageForm_1">tablet</td><td ID="MedicationDosageFormCode_1"></td><td ID="MedicationDosageDescription_1">as needed</td><td ID="MedicationMedicationId_1">[id number]</td><td ID="MedicationAccount_1">[id number]</td><td ID="MedicationNpid_1">[id number]</td><td ID="MedicationAuthorFirstName_1">Malcolm</td><td ID="MedicationAuthorLastName_1">Varner</td><td ID="MedicationTaxonomyCode_1">[id number]</td><td ID="MedicationTaxonomyDesc_1">Nurse Practitioner</td><td ID="MedicationPhoneNumber_1">[phone]</td> [facility] topiramate 50 MG Oral Tablet topiramate 06/26/2021 12:00:00 AM EDT 50 mg by mouth completed <td ID="Medica tionRxNorm_7">404221</td><td ID="MedicationMedication_7">topiramate</td><td ID="MedicationRoute_7">by mouth</td><td ID="MedicationRouteConcept_7">U73416</td><td ID="MedicationStartDate_7">06/26/2021</td><td ID="MedicationStopDate_7">09/24/2021</td><td ID="MedicationDosageFrequency_7">once a day</td><td ID="MedicationDuration_7">30</td><td ID="MedicationFormulaStrength_7">50 mg</td><td ID="MedicationDosageForm_7">tablet</td><td ID="MedicationDosageFormCode_7"></td><td ID="MedicationDosageDescription_7"></td><td ID="MedicationMedicationId_7">[id number]</td><td ID="MedicationAccount_7">[id number]</td><td ID="MedicationNpid_7">[id number]</td><td ID="MedicationAuthorFirstName_7">Jimbo</td><td ID="MedicationAuthorLastName_7">Yanick</td><td ID="MedicationTaxonomyCode_7">[id number]</td><td ID="MedicationTaxonomyDesc_7">Nurse Practitioner</td><td ID="MedicationPhoneNumber_7">[phone]</td> [facility] ([facility]) Clonazepam 0.5 MG Oral Tablet clonazepam 05/25/2021 12:00:00 AM EDT 0.5 mg by mouth completed <td ID="Medica tionRxNorm_1">724150</td><td ID="MedicationMedication_1">clonazepam</td><td ID="MedicationRoute_1">by mouth</td><td ID="MedicationRouteConcept_1">N69503</td><td ID="MedicationStartDate_1">05/25/2021</td><td ID="MedicationStopDate_1">06/24/2021</td><td ID="MedicationDosageFrequency_1">twice a day</td><td ID="MedicationDuration_1">30</td><td ID="MedicationFormulaStrength_1">0.5 mg</td><td ID="MedicationDosageForm_1">tablet</td><td ID="MedicationDosageFormCode_1"></td><td ID="MedicationDosageDescription_1"></td><td ID="MedicationMedicationId_1">[id number]</td><td ID="MedicationAccount_1">[id number]</td><td ID="MedicationNpid_1">[id number]</td><td ID="MedicationAuthorFirstName_1">Malcolm</td><td ID="MedicationAuthorLastName_1">Varner</td><td ID="MedicationTaxonomyCode_1">[id number]</td><td ID="MedicationTaxonomyDesc_1">Nurse Practitioner</td><td ID="MedicationPhoneNumber_1">[phone]</td> [facility] ([facility]) lamotrigine 150 MG Oral Tablet lamotrigine 03/21/2021 12:00:00 AM EDT 150 mg by mouth completed <td ID="Medica tionRxNorm_4">903297</td><td ID="MedicationMedication_4">lamotrigine</td><td ID="MedicationRoute_4">by mouth</td><td ID="MedicationRouteConcept_4">E78748</td><td ID="MedicationStartDate_4">03/21/2021</td><td ID="MedicationStopDate_4">05/20/2021</td><td ID="MedicationDosageFrequency_4">every morning</td><td ID="MedicationDuration_4">30</td><td ID="MedicationFormulaStrength_4">150 mg</td><td ID="MedicationDosageForm_4">tablet</td><td ID="MedicationDosageFormCode_4"></td><td ID="MedicationDosageDescription_4"> </td><td ID="MedicationMedicationId_4">[id number]</td><td ID="MedicationAccount_4">[id number]</td><td ID="MedicationNpid_4">[id number]</td><td ID="MedicationAuthorFirstName_4">Jimbo</td><td ID="MedicationAuthorLastName_4">Yanick</td><td ID="MedicationTaxonomyCode_4">[id number]</td><td ID="MedicationTaxonomyDesc_4">Nurse Practitioner</td><td ID="MedicationPhoneNumber_4">[phone]</td> [facility] ([facility]) Mirtazapine 45 MG Oral Tablet mirtazapine 03/21/2021 12:00:00 AM EDT 45 mg by mouth completed <td ID="Medica tionRxNorm_6">561111</td><td ID="MedicationMedication_6">mirtazapine</td><td ID="MedicationRoute_6">by mouth</td><td ID="MedicationRouteConcept_6">N68821</td><td ID="MedicationStartDate_6">03/21/2021</td><td ID="MedicationStopDate_6">09/24/2021</td><td ID="MedicationDosageFrequency_6">at bedtime</td><td ID="MedicationDuration_6">30</td><td ID="MedicationFormulaStrength_6">45 mg</td><td ID="MedicationDosageForm_6">tablet</td><td ID="MedicationDosageFormCode_6"></td><td ID="MedicationDosageDescription_6"></td><td ID="MedicationMedicationId_6">[id number]</td><td ID="MedicationAccount_6">[id number]</td><td ID="MedicationNpid_6">[id number]</td><td ID="MedicationAuthorFirstName_6">Jimbo</td><td ID="MedicationAuthorLastName_6">Yanick</td><td ID="MedicationTaxonomyCode_6">[id number]</td><td ID="MedicationTaxonomyDesc_6">Nurse Practitioner</td><td ID="MedicationPhoneNumber_6">[phone]</td> [facility] ([facility]) lamotrigine 150 MG Oral Tablet lamotrigine 03/21/2021 12:00:00 AM EDT 150 mg by mouth completed <td ID="Medica tionRxNorm_5">366330</td><td ID="MedicationMedication_5">lamotrigine</td><td ID="MedicationRoute_5">by mouth</td><td ID="MedicationRouteConcept_5">L20828</td><td ID="MedicationStartDate_5">03/21/2021</td><td ID="MedicationStopDate_5">09/24/2021</td><td ID="MedicationDosageFrequency_5">every morning</td><td ID="MedicationDuration_5">30</td><td ID="MedicationFormulaStrength_5">150 mg</td><td ID="MedicationDosageForm_5">tablet</td><td ID="MedicationDosageFormCode_5"></td><td ID="MedicationDosageDescription_5"> </td><td ID="MedicationMedicationId_5">[id number]</td><td ID="MedicationAccount_5">[id number]</td><td ID="MedicationNpid_5">[id number]</td><td ID="MedicationAuthorFirstName_5">Jimbo</td><td ID="MedicationAuthorLastName_5">Yanick</td><td ID="MedicationTaxonomyCode_5">[id number]</td><td ID="MedicationTaxonomyDesc_5">Nurse Practitioner</td><td ID="MedicationPhoneNumber_5">[phone]</td> [facility] ([facility]) Mirtazapine 45 MG Oral Tablet mirtazapine 03/21/2021 12:00:00 AM EDT 45 mg by mouth completed <td ID="Medica tionRxNorm_5">341208</td><td ID="MedicationMedication_5">mirtazapine</td><td ID="MedicationRoute_5">by mouth</td><td ID="MedicationRouteConcept_5">E30970</td><td ID="MedicationStartDate_5">03/21/2021</td><td ID="MedicationStopDate_5">05/20/2021</td><td ID="MedicationDosageFrequency_5">at bedtime</td><td ID="MedicationDuration_5">30</td><td ID="MedicationFormulaStrength_5">45 mg</td><td ID="MedicationDosageForm_5">tablet</td><td ID="MedicationDosageFormCode_5"></td><td ID="MedicationDosageDescription_5"></td><td ID="MedicationMedicationId_5">[id number]</td><td ID="MedicationAccount_5">[id number]</td><td ID="MedicationNpid_5">[id number]</td><td ID="MedicationAuthorFirstName_5">Jimbo</td><td ID="MedicationAuthorLastName_5">Yanick</td><td ID="MedicationTaxonomyCode_5">[id number]</td><td ID="MedicationTaxonomyDesc_5">Nurse Practitioner</td><td ID="MedicationPhoneNumber_5">[phone]</td> [facility] ([facility]) Clonazepam 0.5 MG Oral Tablet [Klonopin] Klonopin 02/21/2021 12 :00:00 AM EDT 0.5 mg by mouth completed <td ID="Me dicationRxNorm_2">288482</td><td ID="MedicationMedication_2">Klonopin</td><td ID="MedicationRoute_2">by mouth</td><td ID="MedicationRouteConcept_2">O67880</td><td ID="MedicationStartDate_2">02/21/2021</td><td ID="MedicationStopDate_2">04/20/2021</td><td ID="MedicationDosageFrequency_2">twice a day</td><td ID="MedicationDuration_2">30</td><td ID="MedicationFormulaStrength_2">0.5 mg</td><td ID="MedicationDosageForm_2">tablet</td><td ID="MedicationDosageFormCode_2"></td><td ID="MedicationDosageDescription_2"></td><td ID="MedicationMedicationId_2">[id number]</td><td ID="MedicationAccount_2">[id number]</td><td ID="MedicationNpid_2">[id number]</td><td ID="MedicationAuthorFirstName_2">Jimbo</td><td ID="MedicationAuthorLastName_2">Yanick</td><td ID="MedicationTaxonomyCode_2">[id number]</td><td ID="MedicationTaxonomyDesc_2">Nurse Practitioner</td><td ID="MedicationPhoneNumber_2">[phone]</td> [facility] ([facility]) 24 HR Nifedipine 30 MG Extended Release Oral Tablet [Bret ia] Procardia XL 02/21/2021 12:00:00 AM EDT 30 mg by mouth completed <td ID="MedicationRxNorm_1">084986</td><td ID="MedicationMedication_1">Procardia XL</td><td ID="MedicationRoute_1">by mouth</td><td ID="MedicationRouteConcept_1">F77449</td><td ID="MedicationStartDate_1">02/21/2021</td><td ID="MedicationStopDate_1">04/20/2021</td><td ID="MedicationDosageFrequency_1">once a day</td><td ID="MedicationDuration_1">30</td><td ID="MedicationFormulaStrength_1">30 mg</td><td ID="MedicationDosageForm_1">tablet extended release 24hr</td><td ID="MedicationDosageFormCode_1"></td><td ID="MedicationDosageDescription_1"></td><td ID="MedicationMedicationId_1">[id number]</td><td ID="MedicationAccount_1">[id number]</td><td ID="MedicationNpid_1">[id number]</td><td ID="MedicationAuthorFirstName_1">Jimbo</td><td ID="MedicationAuthorLastName_1">Yanick</td><td ID="MedicationTaxonomyCode_1">[id number]</td><td ID="MedicationTaxonomyDesc_1"> Nurse Practitioner</td><td ID="MedicationPhoneNumber_1">[phone]</td> [facility] ([facility]) olanzapine 20 MG Oral Tablet [Zyprexa] Zyprexa 02/21/2021 12:0 0:00 AM EDT 20 mg by mouth completed <td ID="Me dicationRxNorm_4">537933</td><td ID="MedicationMedication_4">Zyprexa</td><td ID="MedicationRoute_4">by mouth</td><td ID="MedicationRouteConcept_4">X38987</td><td ID="MedicationStartDate_4">02/21/2021</td><td ID="MedicationStopDate_4">09/24/2021</td><td ID="MedicationDosageFrequency_4">at bedtime</td><td ID="MedicationDuration_4">30</td><td ID="MedicationFormulaStrength_4">20 mg</td><td ID="MedicationDosageForm_4">tablet</td><td ID="MedicationDosageFormCode_4"></td><td ID="MedicationDosageDescription_4"></td><td ID="MedicationMedicationId_4">[id number]</td><td ID="MedicationAccount_4">[id number]</td><td ID="MedicationNpid_4">[id number]</td><td ID="MedicationAuthorFirstName_4">Jimbo</td><td ID="MedicationAuthorLastName_4">Yanick</td><td ID="MedicationTaxonomyCode_4">[id number]</td><td ID="MedicationTaxonomyDesc_4">Nurse Practitioner</td><td ID="MedicationPhoneNumber_4">[phone]</td> [facility] olanzapine 20 MG Oral Tablet [Zyprexa] Zyprexa 02/21/2021 12:0 0:00 AM EDT 20 mg by mouth completed <td ID="Me dicationRxNorm_7">863490</td><td ID="MedicationMedication_7">Zyprexa</td><td ID="MedicationRoute_7">by mouth</td><td ID="MedicationRouteConcept_7">I32303</td><td ID="MedicationStartDate_7">02/21/2021</td><td ID="MedicationStopDate_7">06/19/2021</td><td ID="MedicationDosageFrequency_7">at bedtime</td><td ID="MedicationDuration_7">30</td><td ID="MedicationFormulaStrength_7">20 mg</td><td ID="MedicationDosageForm_7">tablet</td><td ID="MedicationDosageFormCode_7"></td><td ID="MedicationDosageDescription_7"></td><td ID="MedicationMedicationId_7">[id number]</td><td ID="MedicationAccount_7">[id number]</td><td ID="MedicationNpid_7">[id number]</td><td ID="MedicationAuthorFirstName_7">Jimbo</td><td ID="MedicationAuthorLastName_7">Yanick</td><td ID="MedicationTaxonomyCode_7">[id number]</td><td ID="MedicationTaxonomyDesc_7">Nurse Practitioner</td><td ID="MedicationPhoneNumber_7">[phone]</td> [facility] ([facility]) Mirtazapine 30 MG Oral Tablet mirtazapine 02/21/2021 12:00:00 AM EDT 30 mg by mouth completed <td ID="Medica tionRxNorm_3">287793</td><td ID="MedicationMedication_3">mirtazapine</td><td ID="MedicationRoute_3">by mouth</td><td ID="MedicationRouteConcept_3">A09990</td><td ID="MedicationStartDate_3">02/21/2021</td><td ID="MedicationStopDate_3">04/22/2021</td><td ID="MedicationDosageFrequency_3">at bedtime</td><td ID="MedicationDuration_3">30</td><td ID="MedicationFormulaStrength_3">30 mg</td><td ID="MedicationDosageForm_3">tablet</td><td ID="MedicationDosageFormCode_3"></td><td ID="MedicationDosageDescription_3"></td><td ID="MedicationMedicationId_3">[id number]</td><td ID="MedicationAccount_3">[id number]</td><td ID="MedicationNpid_3">[id number]</td><td ID="MedicationAuthorFirstName_3">Jimbo</td><td ID="MedicationAuthorLastName_3">Yanick</td><td ID="MedicationTaxonomyCode_3">[id number]</td><td ID="MedicationTaxonomyDesc_3">Nurse Practitioner</td><td ID="MedicationPhoneNumber_3">[phone]</td> [facility] ([facility]) olanzapine 20 MG Oral Tablet [Zyprexa] Zyprexa 02/21/2021 12:0 0:00 AM EDT 20 mg by mouth completed <td ID="Me dicationRxNorm_8">467922</td><td ID="MedicationMedication_8">Zyprexa</td><td ID="MedicationRoute_8">by mouth</td><td ID="MedicationRouteConcept_8">T77594</td><td ID="MedicationStartDate_8">02/21/2021</td><td ID="MedicationStopDate_8">05/22/2021</td><td ID="MedicationDosageFrequency_8">at bedtime</td><td ID="MedicationDuration_8">30</td><td ID="MedicationFormulaStrength_8">20 mg</td><td ID="MedicationDosageForm_8">tablet</td><td ID="MedicationDosageFormCode_8"></td><td ID="MedicationDosageDescription_8"></td><td ID="MedicationMedicationId_8">[id number]</td><td ID="MedicationAccount_8">[id number]</td><td ID="MedicationNpid_8">[id number]</td><td ID="MedicationAuthorFirstName_8">Jibmo</td><td ID="MedicationAuthorLastName_8">Yanick</td><td ID="MedicationTaxonomyCode_8">[id number]</td><td ID="MedicationTaxonomyDesc_8">Nurse Practitioner</td><td ID="MedicationPhoneNumber_8">[phone]</td> [facility] ([facility]) lamotrigine 25 MG Oral Tablet lamotrigine 02/21/2021 12:00:00 AM EDT 25 mg by mouth completed <td ID="Medica tionRxNorm_7">431863</td><td ID="MedicationMedication_7">lamotrigine</td><td ID="MedicationRoute_7">by mouth</td><td ID="MedicationRouteConcept_7">Z24386</td><td ID="MedicationStartDate_7">02/21/2021</td><td ID="MedicationStopDate_7">05/22/2021</td><td ID="MedicationDosageFrequency_7">once a day</td><td ID="MedicationDuration_7">30</td><td ID="MedicationFormulaStrength_7">25 mg</td><td ID="MedicationDosageForm_7">tablet</td><td ID="MedicationDosageFormCode_7"></td><td ID="MedicationDosageDescription_7"></td><td ID="MedicationMedicationId_7">[id number]</td><td ID="MedicationAccount_7">[id number]</td><td ID="MedicationNpid_7">[id number]</td><td ID="MedicationAuthorFirstName_7">Jimbo</td><td ID="MedicationAuthorLastName_7">Yanick</td><td ID="MedicationTaxonomyCode_7">[id number]</td><td ID="MedicationTaxonomyDesc_7">Nurse Practitioner</td><td ID="MedicationPhoneNumber_7">[phone]</td> [facility] ([facility]) Clonidine Hydrochloride 0.1 MG Oral Tablet clonidine HCl 02/21/2021 12:00:00 AM EDT 0.1 mg by mouth completed <td ID="MedicationRxNorm_5">735470</td><td ID="MedicationMedication_5">clonidine HCl</td><td ID="MedicationRoute_5">by mouth</td><td ID="MedicationRouteConcept_5">T71958</td><td ID="MedicationStartDate_5">02/21/2021</td><td ID="MedicationStopDate_5">04/22/2021</td><td ID="MedicationDosageFrequency_5">twice a day</td><td ID="MedicationDuration_5">30</td><td ID="MedicationFormulaStrength_5">0.1 mg</td><td ID="MedicationDosageForm_5">tablet</td><td ID="MedicationDosageFormCode_5"></td><td ID="MedicationDosageDescription_5">as needed</td><td ID="MedicationMedicationId_5">[id number]</td><td ID="MedicationAccount_5">[id number]</td><td ID="MedicationNpid_5">[id number]</td><td ID="MedicationAuthorFirstName_5">Jimbo</td><td ID="MedicationAuthorLastName_5">Yanick</td><td ID="MedicationTaxonomyCode_5">[id number]</td><td ID="MedicationTaxonomyDesc_5">Nurse Practitioner</td><td ID="MedicationPhoneNumber_5">[phone]</td> [facility] ([facility]) Clonidine Hydrochloride 0.1 MG Oral Tablet clonidine HCl 02/21/2021 12:00:00 AM EDT 0.1 mg by mouth completed <td ID="MedicationRxNorm_3">928616</td><td ID="MedicationMedication_3">clonidine HCl</td><td ID="MedicationRoute_3">by mouth</td><td ID="MedicationRouteConcept_3">M25335</td><td ID="MedicationStartDate_3">02/21/2021</td><td ID="MedicationStopDate_3">09/24/2021</td><td ID="MedicationDosageFrequency_3">twice a day</td><td ID="MedicationDuration_3">30</td><td ID="MedicationFormulaStrength_3">0.1 mg</td><td ID="MedicationDosageForm_3">tablet</td><td ID="MedicationDosageFormCode_3"></td><td ID="MedicationDosageDescription_3">as needed</td><td ID="MedicationMedicationId_3">[id number]</td><td ID="MedicationAccount_3">[id number]</td><td ID="MedicationNpid_3">[id number]</td><td ID="MedicationAuthorFirstName_3">Jimbo</td><td ID="MedicationAuthorLastName_3">Yanick</td><td ID="MedicationTaxonomyCode_3">[id number]</td><td ID="MedicationTaxonomyDesc_3">Nurse Practitioner</td><td ID="MedicationPhoneNumber_3">[phone]</td> [facility] ([facility]) lamotrigine 100 MG Oral Tablet lamotrigine 01/11/2021 12:00:00 AM EDT 100 mg by mouth completed <td ID="Medica tionRxNorm_1">209064</td><td ID="MedicationMedication_1">lamotrigine</td><td ID="MedicationRoute_1">by mouth</td><td ID="MedicationRouteConcept_1">Y04119</td><td ID="MedicationStartDate_1">01/11/2021</td><td ID="MedicationStopDate_1">02/10/2021</td><td ID="MedicationDosageFrequency_1">every morning</td><td ID="MedicationDuration_1">30</td><td ID="MedicationFormulaStrength_1">100 mg</td><td ID="MedicationDosageForm_1">tablet</td><td ID="MedicationDosageFormCode_1"></td><td ID="MedicationDosageDescription_1"> </td><td ID="MedicationMedicationId_1">[id number]</td><td ID="MedicationAccount_1">[id number]</td><td ID="MedicationNpid_1">[id number]</td><td ID="MedicationAuthorFirstName_1">Jimbo</td><td ID="MedicationAuthorLastName_1">Yanick</td><td ID="MedicationTaxonomyCode_1">[id number]</td><td ID="MedicationTaxonomyDesc_1">Nurse Practitioner</td><td ID="MedicationPhoneNumber_1">[phone]</td> [facility] ([facility]) lamotrigine 25 MG Oral Tablet lamotrigine 12/14/2020 12:00:00 AM EST 25 mg by mouth completed <td ID="Medica tionRxNorm_2">319472</td><td ID="MedicationMedication_2">lamotrigine</td><td ID="MedicationRoute_2">by mouth</td><td ID="MedicationRouteConcept_2">Z51577</td><td ID="MedicationStartDate_2">12/14/2020</td><td ID="MedicationStopDate_2">02/12/2021</td><td ID="MedicationDosageFrequency_2">every morning</td><td ID="MedicationDuration_2">30</td><td ID="MedicationFormulaStrength_2">25 mg</td><td ID="MedicationDosageForm_2">tablet</td><td ID="MedicationDosageFormCode_2"></td><td ID="MedicationDosageDescription_2"> </td><td ID="MedicationMedicationId_2">38161</td><td ID="MedicationAccount_2">[id number]</td><td ID="MedicationNpid_2">[id number]</td><td ID="MedicationAuthorFirstName_2">Jimbo</td><td ID="MedicationAuthorLastName_2">Yanick</td><td ID="MedicationTaxonomyCode_2">[id number]</td><td ID="MedicationTaxonomyDesc_2">Nurse Practitioner</td><td ID="MedicationPhoneNumber_2">[phone]</td> [facility] ([facility]) Mirtazapine 30 MG Oral Tablet mirtazapine 12/14/2020 12:00:00 AM EST 30 mg by mouth completed <td ID="Medica tionRxNorm_2">306836</td><td ID="MedicationMedication_2">mirtazapine</td><td ID="MedicationRoute_2">by mouth</td><td ID="MedicationRouteConcept_2">A37617</td><td ID="MedicationStartDate_2">12/14/2020</td><td ID="MedicationStopDate_2">02/12/2021</td><td ID="MedicationDosageFrequency_2">at bedtime</td><td ID="MedicationDuration_2">30</td><td ID="MedicationFormulaStrength_2">30 mg</td><td ID="MedicationDosageForm_2">tablet</td><td ID="MedicationDosageFormCode_2"></td><td ID="MedicationDosageDescription_2"></td><td ID="MedicationMedicationId_2">[id number]</td><td ID="MedicationAccount_2">[id number]</td><td ID="MedicationNpid_2">[id number]</td><td ID="MedicationAuthorFirstName_2">Jimbo</td><td ID="MedicationAuthorLastName_2">Yanick</td><td ID="MedicationTaxonomyCode_2">[id number]</td><td ID="MedicationTaxonomyDesc_2">Nurse Practitioner</td><td ID="MedicationPhoneJimi_2">[phone]</td> [facility] ([facility]) Clonidine Hydrochloride 0.1 MG Oral Tablet clonidine HCl 12/14/2020 12:00:00 AM EST 0.1 mg by mouth completed <td ID="MedicationRxNorm_4">925916</td><td ID="MedicationMedication_4">clonidine HCl</td><td ID="MedicationRoute_4">by mouth</td><td ID="MedicationRouteConcept_4">E57905</td><td ID="MedicationStartDate_4">12/14/2020</td><td ID="MedicationStopDate_4">02/12/2021</td><td ID="MedicationDosageFrequency_4">three times a day</td><td ID="MedicationDuration_4">30</td><td ID="MedicationFormulaStrength_4">0.1 mg</td><td ID="MedicationDosageForm_4">tablet</td><td ID="MedicationDosageFormCode_4"></td><td ID="MedicationDosageDescription_4">as needed</td><td ID="MedicationMedicationId_4">87823</td><td ID="MedicationAccount_4">[id number]</td><td ID="MedicationNpid_4">[id number]</td><td ID="MedicationAuthorFirstName_4">Jimbo</td><td ID="MedicationAuthorLastName_4">Yanick</td><td ID="MedicationTaxonomyCode_4">[id number]</td><td ID="MedicationTaxonomyDesc_4">Nurse Practitioner</td><td ID="MedicationPhoneNumber_4">[phone]</td> [facility] ([facility]) 12 HR Bupropion Hydrochloride 100 MG Extended Release Oral Tablet [Wellbutrin] Wellbutrin SR 10/09/2020 12:00:00 AM EST 100 mg by mouth co mpleted <td ID="MedicationRxNorm_6">551572</td><td ID="MedicationMedication_6">Wellbutrin SR</td><td ID="MedicationRoute_6">by mouth</td><td ID="MedicationRouteConcept_6">Z51821</td><td ID="MedicationStartDate_6">10/09/2020</td><td ID="MedicationStopDate_6">03/14/2021</td><td ID="MedicationDosageFrequency_6">every morning</td><td ID="MedicationDuration_6">30</td><td ID="MedicationFormulaStrength_6">100 mg</td><td ID="MedicationDosageForm_6">tablet sustained-release 12 hr</td><td ID="MedicationDosageFormCode_6"></td><td ID="MedicationDosageDescription_6"></td><td ID="MedicationMedicationId_6">34919</td><td ID="MedicationAccount_6">[id number]</td><td ID="MedicationNpid_6">[id number]</td><td ID="MedicationAuthorFirstName_6">Jimbo</td><td ID="MedicationAuthorLastName_6">Yanick</td><td ID="MedicationTaxonomyCode_6">[id number]</td><td ID="MedicationTaxonomyDesc_6"> Nurse Practitioner</td><td ID="MedicationPhoneNumber_6">[phone]</td> [facility] ([facility]) 12 HR Bupropion Hydrochloride 100 MG Extended Release Oral Tablet [Wellbutrin] Wellbutrin SR 10/09/2020 12:00:00 AM EST 100 mg by mouth co mpleted <td ID="MedicationRxNorm_3">234623</td><td ID="MedicationMedication_3">Wellbutrin SR</td><td ID="MedicationRoute_3">by mouth</td><td ID="MedicationRouteConcept_3">Z78436</td><td ID="MedicationStartDate_3">10/09/2020</td><td ID="MedicationStopDate_3">01/07/2021</td><td ID="MedicationDosageFrequency_3">every morning</td><td ID="MedicationDuration_3">30</td><td ID="MedicationFormulaStrength_3">100 mg</td><td ID="MedicationDosageForm_3">tablet sustained-release 12 hr</td><td ID="MedicationDosageFormCode_3"></td><td ID="MedicationDosageDescription_3"></td><td ID="MedicationMedicationId_3">09077</td><td ID="MedicationAccount_3">[id number]</td><td ID="MedicationNpid_3">[id number]</td><td ID="MedicationAuthorFirstName_3">Jimbo</td><td ID="MedicationAuthorLastName_3">Yanick</td><td ID="MedicationTaxonomyCode_3">[id number]</td><td ID="MedicationTaxonomyDesc_3"> Nurse Practitioner</td><td ID="MedicationPhoneNumber_3">[phone]</td> [facility] ([facility]) topiramate 100 MG Oral Tablet [Topamax] Topamax 10/09/2020 12: 00:00 AM EST 100 mg by mouth completed <td ID="Me dicationRxNorm_2">205724</td><td ID="MedicationMedication_2">Topamax</td><td ID="MedicationRoute_2">by mouth</td><td ID="MedicationRouteConcept_2">S32409</td><td ID="MedicationStartDate_2">10/09/2020</td><td ID="MedicationStopDate_2">09/24/2021</td><td ID="MedicationDosageFrequency_2">twice a day</td><td ID="MedicationDuration_2">30</td><td ID="MedicationFormulaStrength_2">100 mg</td><td ID="MedicationDosageForm_2">tablet</td><td ID="MedicationDosageFormCode_2"></td><td ID="MedicationDosageDescription_2"></td><td ID="MedicationMedicationId_2">45506</td><td ID="MedicationAccount_2">[id number]</td><td ID="MedicationNpid_2">[id number]</td><td ID="MedicationAuthorFirstName_2">Jimbo</td><td ID="MedicationAuthorLastName_2">Yanick</td><td ID="MedicationTaxonomyCode_2">[id number]</td><td ID="MedicationTaxonomyDesc_2">Nurse Practitioner</td><td ID="MedicationPhoneNumber_2">[phone]</td> [facility] ([facility]) topiramate 100 MG Oral Tablet [Topamax] Topamax 10/09/2020 12: 00:00 AM EST 100 mg by mouth completed <td ID="Me dicationRxNorm_4">335280</td><td ID="MedicationMedication_4">Topamax</td><td ID="MedicationRoute_4">by mouth</td><td ID="MedicationRouteConcept_4">R12097</td><td ID="MedicationStartDate_4">10/09/2020</td><td ID="MedicationStopDate_4">03/14/2021</td><td ID="MedicationDosageFrequency_4">twice a day</td><td ID="MedicationDuration_4">30</td><td ID="MedicationFormulaStrength_4">100 mg</td><td ID="MedicationDosageForm_4">tablet</td><td ID="MedicationDosageFormCode_4"></td><td ID="MedicationDosageDescription_4"></td><td ID="MedicationMedicationId_4">94944</td><td ID="MedicationAccount_4">[id number]</td><td ID="MedicationNpid_4">[id number]</td><td ID="MedicationAuthorFirstName_4">Jimbo</td><td ID="MedicationAuthorLastName_4">Yanick</td><td ID="MedicationTaxonomyCode_4">[id number]</td><td ID="MedicationTaxonomyDesc_4">Nurse Practitioner</td><td ID="MedicationPhoneNumber_4">[phone]</td> [facility] ([facility]) olanzapine 20 MG Oral Tablet [Zyprexa] Zyprexa 10/09/2020 12:0 0:00 AM EST 20 mg by mouth completed <td ID="Me dicationRxNorm_1">453755</td><td ID="MedicationMedication_1">Zyprexa</td><td ID="MedicationRoute_1">by mouth</td><td ID="MedicationRouteConcept_1">R75901</td><td ID="MedicationStartDate_1">10/09/2020</td><td ID="MedicationStopDate_1">01/07/2021</td><td ID="MedicationDosageFrequency_1">at bedtime</td><td ID="MedicationDuration_1">30</td><td ID="MedicationFormulaStrength_1">20 mg</td><td ID="MedicationDosageForm_1">tablet</td><td ID="MedicationDosageFormCode_1"></td><td ID="MedicationDosageDescription_1"></td><td ID="MedicationMedicationId_1">06405</td><td ID="MedicationAccount_1">[id number]</td><td ID="MedicationNpid_1">[id number]</td><td ID="MedicationAuthorFirstName_1">Jmibo</td><td ID="MedicationAuthorLastName_1">Yanick</td><td ID="MedicationTaxonomyCode_1">[id number]</td><td ID="MedicationTaxonomyDesc_1">Nurse Practitioner</td><td ID="MedicationPhoneNumber_1">[phone]</td> [facility] ([facility]) 12 HR Bupropion Hydrochloride 100 MG Extended Release Oral Tablet [Wellbutrin] Wellbutrin SR 10/09/2020 12:00:00 AM EST 100 mg by mouth co mpleted <td ID="MedicationRxNorm_5">732350</td><td ID="MedicationMedication_5">Wellbutrin SR</td><td ID="MedicationRoute_5">by mouth</td><td ID="MedicationRouteConcept_5">X16665</td><td ID="MedicationStartDate_5">10/09/2020</td><td ID="MedicationStopDate_5">03/14/2021</td><td ID="MedicationDosageFrequency_5">every morning</td><td ID="MedicationDuration_5">30</td><td ID="MedicationFormulaStrength_5">100 mg</td><td ID="MedicationDosageForm_5">tablet sustained-release 12 hr</td><td ID="MedicationDosageFormCode_5"></td><td ID="MedicationDosageDescription_5"></td><td ID="MedicationMedicationId_5">71579</td><td ID="MedicationAccount_5">[id number]</td><td ID="MedicationNpid_5">[id number]</td><td ID="MedicationAuthorFirstName_5">Jimbo</td><td ID="MedicationAuthorLastName_5">Yanick</td><td ID="MedicationTaxonomyCode_5">[id number]</td><td ID="MedicationTaxonomyDesc_5"> Nurse Practitioner</td><td ID="MedicationPhoneNumber_5">[phone]</td> [facility] ([facility]) topiramate 100 MG Oral Tablet [Topamax] Topamax 10/09/2020 12: 00:00 AM EST 100 mg by mouth completed <td ID="Me dicationRxNorm_5">665017</td><td ID="MedicationMedication_5">Topamax</td><td ID="MedicationRoute_5">by mouth</td><td ID="MedicationRouteConcept_5">S29819</td><td ID="MedicationStartDate_5">10/09/2020</td><td ID="MedicationStopDate_5">03/14/2021</td><td ID="MedicationDosageFrequency_5">twice a day</td><td ID="MedicationDuration_5">30</td><td ID="MedicationFormulaStrength_5">100 mg</td><td ID="MedicationDosageForm_5">tablet</td><td ID="MedicationDosageFormCode_5"></td><td ID="MedicationDosageDescription_5"></td><td ID="MedicationMedicationId_5">62189</td><td ID="MedicationAccount_5">[id number]</td><td ID="MedicationNpid_5">[id number]</td><td ID="MedicationAuthorFirstName_5">Jimbo</td><td ID="MedicationAuthorLastName_5">Yanick</td><td ID="MedicationTaxonomyCode_5">[id number]</td><td ID="MedicationTaxonomyDesc_5">Nurse Practitioner</td><td ID="MedicationPhoneNumber_5">[phone]</td> [facility] ([facility]) Mirtazapine 30 MG Oral Tablet mirtazapine 10/09/2020 12:00:00 AM EST 30 mg by mouth completed <td ID="Medica tionRxNorm_1">333211</td><td ID="MedicationMedication_1">mirtazapine</td><td ID="MedicationRoute_1">by mouth</td><td ID="MedicationRouteConcept_1">D18032</td><td ID="MedicationStartDate_1">10/09/2020</td><td ID="MedicationStopDate_1">12/08/2020</td><td ID="MedicationDosageFrequency_1">at bedtime</td><td ID="MedicationDuration_1">30</td><td ID="MedicationFormulaStrength_1">30 mg</td><td ID="MedicationDosageForm_1">tablet</td><td ID="MedicationDosageFormCode_1"></td><td ID="MedicationDosageDescription_1"></td><td ID="MedicationMedicationId_1">91942</td><td ID="MedicationAccount_1">[id number]</td><td ID="MedicationNpid_1">[id number]</td><td ID="MedicationAuthorFirstName_1">Jimbo</td><td ID="MedicationAuthorLastName_1">Yanick</td><td ID="MedicationTaxonomyCode_1">[id number]</td><td ID="MedicationTaxonomyDesc_1">Nurse Practitioner</td><td ID="MedicationPhoneNumber_1">[phone]</td> [facility] ([facility]) topiramate 100 MG Oral Tablet [Topamax] Topamax 10/09/2020 12: 00:00 AM EST 100 mg by mouth completed <td ID="Me dicationRxNorm_6">642623</td><td ID="MedicationMedication_6">Topamax</td><td ID="MedicationRoute_6">by mouth</td><td ID="MedicationRouteConcept_6">X31142</td><td ID="MedicationStartDate_6">10/09/2020</td><td ID="MedicationStopDate_6">06/19/2021</td><td ID="MedicationDosageFrequency_6">twice a day</td><td ID="MedicationDuration_6">30</td><td ID="MedicationFormulaStrength_6">100 mg</td><td ID="MedicationDosageForm_6">tablet</td><td ID="MedicationDosageFormCode_6"></td><td ID="MedicationDosageDescription_6"></td><td ID="MedicationMedicationId_6">11656</td><td ID="MedicationAccount_6">[id number]</td><td ID="MedicationNpid_6">[id number]</td><td ID="MedicationAuthorFirstName_6">Jimbo</td><td ID="MedicationAuthorLastName_6">Yanick</td><td ID="MedicationTaxonomyCode_6">[id number]</td><td ID="MedicationTaxonomyDesc_6">Nurse Practitioner</td><td ID="MedicationPhoneNumber_6">[phone]</td> [facility] ([facility]) 12 HR Bupropion Hydrochloride 100 MG Extended Release Oral Tablet [Wellbutrin] Wellbutrin SR 07/04/2020 12:00:00 AM EDT 100 mg by mouth co mpleted <td ID="MedicationRxNorm_2">557653</td><td ID="MedicationMedication_2">Wellbutrin SR</td><td ID="MedicationRoute_2">by mouth</td><td ID="MedicationRouteConcept_2">G27205</td><td ID="MedicationStartDate_2">07/04/2020</td><td ID="MedicationStopDate_2">10/02/2020</td><td ID="MedicationDosageFrequency_2">every morning</td><td ID="MedicationDuration_2">30</td><td ID="MedicationFormulaStrength_2">100 mg</td><td ID="MedicationDosageForm_2">tablet sustained-release 12 hr</td><td ID="MedicationDosageFormCode_2"></td><td ID="MedicationDosageDescription_2"></td><td ID="MedicationMedicationId_2">60051</td><td ID="MedicationAccount_2">[id number]</td><td ID="MedicationNpid_2">[id number]</td><td ID="MedicationAuthorFirstName_2">Jimbo</td><td ID="MedicationAuthorLastName_2">Yainck</td><td ID="MedicationTaxonomyCode_2">[id number]</td><td ID="MedicationTaxonomyDesc_2"> Nurse Practitioner</td><td ID="MedicationPhoneNumber_2">[phone]</td> [facility] ([facility]) lamotrigine 100 MG Oral Tablet lamotrigine 07/04/2020 12:00:00 AM EDT 100 mg by mouth completed <td ID="Medica tionRxNorm_3">575900</td><td ID="MedicationMedication_3">lamotrigine</td><td ID="MedicationRoute_3">by mouth</td><td ID="MedicationRouteConcept_3">C61677</td><td ID="MedicationStartDate_3">07/04/2020</td><td ID="MedicationStopDate_3">08/03/2020</td><td ID="MedicationDosageFrequency_3">every morning</td><td ID="MedicationDuration_3">30</td><td ID="MedicationFormulaStrength_3">100 mg</td><td ID="MedicationDosageForm_3">tablet</td><td ID="MedicationDosageFormCode_3"></td><td ID="MedicationDosageDescription_3"> </td><td ID="MedicationMedicationId_3">29048</td><td ID="MedicationAccount_3">[id number]</td><td ID="MedicationNpid_3">[id number]</td><td ID="MedicationAuthorFirstName_3">Jimbo</td><td ID="MedicationAuthorLastName_3">Yanick</td><td ID="MedicationTaxonomyCode_3">[id number]</td><td ID="MedicationTaxonomyDesc_3">Nurse Practitioner</td><td ID="MedicationPhoneNumber_3">[phone]</td> [facility] ([facility]) topiramate 100 MG Oral Tablet [Topamax] Topamax 07/04/2020 12: 00:00 AM EDT 100 mg by mouth completed <td ID="Me dicationRxNorm_3">440470</td><td ID="MedicationMedication_3">Topamax</td><td ID="MedicationRoute_3">by mouth</td><td ID="MedicationRouteConcept_3">Y98938</td><td ID="MedicationStartDate_3">07/04/2020</td><td ID="MedicationStopDate_3">10/02/2020</td><td ID="MedicationDosageFrequency_3">twice a day</td><td ID="MedicationDuration_3">30</td><td ID="MedicationFormulaStrength_3">100 mg</td><td ID="MedicationDosageForm_3">tablet</td><td ID="MedicationDosageFormCode_3"></td><td ID="MedicationDosageDescription_3"></td><td ID="MedicationMedicationId_3">39054</td><td ID="MedicationAccount_3">[id number]</td><td ID="MedicationNpid_3">[id number]</td><td ID="MedicationAuthorFirstName_3">Jimbo</td><td ID="MedicationAuthorLastName_3">Yanick</td><td ID="MedicationTaxonomyCode_3">[id number]</td><td ID="MedicationTaxonomyDesc_3">Nurse Practitioner</td><td ID="MedicationPhoneNumber_3">[phone]</td> [facility] ([facility]) olanzapine 20 MG Oral Tablet [Zyprexa] Zyprexa 07/04/2020 12:0 0:00 AM EDT 20 mg by mouth completed <td ID="Me dicationRxNorm_3">526940</td><td ID="MedicationMedication_3">Zyprexa</td><td ID="MedicationRoute_3">by mouth</td><td ID="MedicationRouteConcept_3">K85283</td><td ID="MedicationStartDate_3">07/04/2020</td><td ID="MedicationStopDate_3">10/02/2020</td><td ID="MedicationDosageFrequency_3">at bedtime</td><td ID="MedicationDuration_3">30</td><td ID="MedicationFormulaStrength_3">20 mg</td><td ID="MedicationDosageForm_3">tablet</td><td ID="MedicationDosageFormCode_3"></td><td ID="MedicationDosageDescription_3"></td><td ID="MedicationMedicationId_3">97766</td><td ID="MedicationAccount_3">[id number]</td><td ID="MedicationNpid_3">[id number]</td><td ID="MedicationAuthorFirstName_3">Jimbo</td><td ID="MedicationAuthorLastName_3">Yanick</td><td ID="MedicationTaxonomyCode_3">[id number]</td><td ID="MedicationTaxonomyDesc_3">Nurse Practitioner</td><td ID="MedicationPhoneNumber_3">[phone]</td> [facility] ([facility]) 12 HR Bupropion Hydrochloride 100 MG Extended Release Oral Tablet [Wellbutrin] Wellbutrin SR 07/04/2020 12:00:00 AM EDT 100 mg by mouth co mpleted <td ID="MedicationRxNorm_4">288054</td><td ID="MedicationMedication_4">Wellbutrin SR</td><td ID="MedicationRoute_4">by mouth</td><td ID="MedicationRouteConcept_4">Y86198</td><td ID="MedicationStartDate_4">07/04/2020</td><td ID="MedicationStopDate_4">10/02/2020</td><td ID="MedicationDosageFrequency_4">every morning</td><td ID="MedicationDuration_4">30</td><td ID="MedicationFormulaStrength_4">100 mg</td><td ID="MedicationDosageForm_4">tablet sustained-release 12 hr</td><td ID="MedicationDosageFormCode_4"></td><td ID="MedicationDosageDescription_4"></td><td ID="MedicationMedicationId_4">67380</td><td ID="MedicationAccount_4">[id number]</td><td ID="MedicationNpid_4">[id number]</td><td ID="MedicationAuthorFirstName_4">Jimbo</td><td ID="MedicationAuthorLastName_4">Yanick</td><td ID="MedicationTaxonomyCode_4">[id number]</td><td ID="MedicationTaxonomyDesc_4"> Nurse Practitioner</td><td ID="MedicationPhoneNumber_4">[phone]</td> [facility] ([facility]) Clonidine Hydrochloride 0.1 MG Oral Tablet clonidine HCl 04/03/2020 12:00:00 AM EDT 0.1 mg by mouth completed <td ID="MedicationRxNorm_1">398153</td><td ID="MedicationMedication_1">clonidine HCl</td><td ID="MedicationRoute_1">by mouth</td><td ID="MedicationRouteConcept_1">M23769</td><td ID="MedicationStartDate_1">04/03/2020</td><td ID="MedicationStopDate_1">09/02/2020</td><td ID="MedicationDosageFrequency_1">twice a day</td><td ID="MedicationDuration_1">30</td><td ID="MedicationFormulaStrength_1">0.1 mg</td><td ID="MedicationDosageForm_1">tablet</td><td ID="MedicationDosageFormCode_1"></td><td ID="MedicationDosageDescription_1">as needed</td><td ID="MedicationMedicationId_1">[id number]</td><td ID="MedicationAccount_1">[id number]</td><td ID="MedicationNpid_1">[id number]</td><td ID="MedicationAuthorFirstName_1">Jimbo</td><td ID="MedicationAuthorLastName_1">Yanick</td><td ID="MedicationTaxonomyCode_1">[id number]</td><td ID="MedicationTaxonomyDesc_1">Nurse Practitioner</td><td ID="MedicationPhoneNumber_1">[phone]</td> [facility] ([facility]) Clonidine Hydrochloride 0.1 MG Oral Tablet clonidine HCl 04/03/2020 12:00:00 AM EDT 0.1 mg by mouth completed <td ID="MedicationRxNorm_2">[id number]</td><td ID="MedicationMedication_2">clonidine HCl</td><td ID="MedicationRoute_2">by mouth</td><td ID="MedicationRouteConcept_2">[id number]</td><td ID="MedicationStartDate_2">04/03/2020</td><td ID="MedicationStopDate_2">09/02/2020</td><td ID="MedicationDosageFrequency_2">twice a day</td><td ID="MedicationDuration_2">30</td><td ID="MedicationFormulaStrength_2">0.1 mg</td><td ID="MedicationDosageForm_2">tablet</td><td ID="MedicationDosageFormCode_2"></td><td ID="MedicationDosageDescription_2">as needed</td><td ID="MedicationMedicationId_2">[id number]</td><td ID="MedicationAccount_2">[id number]</td><td ID="MedicationNpid_2">[id number]</td><td ID="MedicationAuthorFirstName_2">Jimbo</td><td ID="MedicationAuthorLastName_2">Yanick</td><td ID="MedicationTaxonomyCode_2">[id number]</td><td ID="MedicationTaxonomyDesc_2">Nurse Practitioner</td><td ID="MedicationPhoneNumber_2">[phone]</td> [facility] ([facility]) olanzapine 20 MG Oral Tablet [Zyprexa] Zyprexa 10/12/2019 12:0 0:00 AM EST 20 mg by mouth completed <td ID="Me dicationRxNorm_5">825597</td><td ID="MedicationMedication_5">Zyprexa</td><td ID="MedicationRoute_5">by mouth</td><td ID="MedicationRouteConcept_5">J01817</td><td ID="MedicationStartDate_5">10/12/2019</td><td ID="MedicationStopDate_5">06/07/2020</td><td ID="MedicationDosageFrequency_5">at bedtime</td><td ID="MedicationDuration_5">30</td><td ID="MedicationFormulaStrength_5">20 mg</td><td ID="MedicationDosageForm_5">tablet</td><td ID="MedicationDosageFormCode_5"></td><td ID="MedicationDosageDescription_5"></td><td ID="MedicationMedicationId_5">[id number]</td><td ID="MedicationAccount_5">[id number]</td><td ID="MedicationNpid_5">[id number]</td><td ID="MedicationAuthorFirstName_5">Jimbo</td><td ID="MedicationAuthorLastName_5">Yanick</td><td ID="MedicationTaxonomyCode_5">[id number]</td><td ID="MedicationTaxonomyDesc_5">Nurse Practitioner</td><td ID="MedicationPhoneNumber_5">[phone]</td> [facility] ([facility]) topiramate 100 MG Oral Tablet [Topamax] Topamax 10/12/2019 12: 00:00 AM EST 100 mg by mouth completed <td ID="Me dicationRxNorm_7">[id number]</td><td ID="MedicationMedication_7">Topamax</td><td ID="MedicationRoute_7">by mouth</td><td ID="MedicationRouteConcept_7">Y12108</td><td ID="MedicationStartDate_7">10/12/2019</td><td ID="MedicationStopDate_7">06/07/2020</td><td ID="MedicationDosageFrequency_7">twice a day</td><td ID="MedicationDuration_7">30</td><td ID="MedicationFormulaStrength_7">100 mg</td><td ID="MedicationDosageForm_7">tablet</td><td ID="MedicationDosageFormCode_7"></td><td ID="MedicationDosageDescription_7"></td><td ID="MedicationMedicationId_7">[id number]</td><td ID="MedicationAccount_7">[id number]</td><td ID="MedicationNpid_7">[id number]</td><td ID="MedicationAuthorFirstName_7">Jimbo</td><td ID="MedicationAuthorLastName_7">Yanick</td><td ID="MedicationTaxonomyCode_7">[id number]</td><td ID="MedicationTaxonomyDesc_7">Nurse Practitioner</td><td ID="MedicationPhoneNumber_7">[phone]</td> [facility] ([facility]) olanzapine 20 MG Oral Tablet [Zyprexa] Zyprexa 10/12/2019 12:0 0:00 AM EST 20 mg by mouth completed <td ID="Me dicationRxNorm_2">419320</td><td ID="MedicationMedication_2">Zyprexa</td><td ID="MedicationRoute_2">by mouth</td><td ID="MedicationRouteConcept_2">B47796</td><td ID="MedicationStartDate_2">10/12/2019</td><td ID="MedicationStopDate_2">07/02/2020</td><td ID="MedicationDosageFrequency_2">at bedtime</td><td ID="MedicationDuration_2">30</td><td ID="MedicationFormulaStrength_2">20 mg</td><td ID="MedicationDosageForm_2">tablet</td><td ID="MedicationDosageFormCode_2"></td><td ID="MedicationDosageDescription_2"></td><td ID="MedicationMedicationId_2">[id number]</td><td ID="MedicationAccount_2">[id number]</td><td ID="MedicationNpid_2">[id number]</td><td ID="MedicationAuthorFirstName_2">Jimbo</td><td ID="MedicationAuthorLastName_2">Yanick</td><td ID="MedicationTaxonomyCode_2">[id number]</td><td ID="MedicationTaxonomyDesc_2">Nurse Practitioner</td><td ID="MedicationPhoneNumber_2">[phone]</td> [facility] ([facility]) 24 HR Nifedipine 30 MG Extended Release Oral Tablet [Bret ia] Procardia XL 03/02/2019 12:00:00 AM EDT 30 mg by mouth completed <td ID="MedicationRxNorm_2">[id number]</td><td ID="MedicationMedication_2">Procardia XL</td><td ID="MedicationRoute_2">by mouth</td><td ID="MedicationRouteConcept_2">N96025</td><td ID="MedicationStartDate_2">03/02/2019</td><td ID="MedicationStopDate_2">06/07/2020</td><td ID="MedicationDosageFrequency_2">once a day</td><td ID="MedicationDuration_2">30</td><td ID="MedicationFormulaStrength_2">30 mg</td><td ID="MedicationDosageForm_2">tablet extended release 24hr</td><td ID="MedicationDosageFormCode_2"></td><td ID="MedicationDosageDescription_2"></td><td ID="MedicationMedicationId_2">[id number]</td><td ID="MedicationAccount_2">[id number]</td><td ID="MedicationNpid_2">[id number]</td><td ID="MedicationAuthorFirstName_2">Jimbo</td><td ID="MedicationAuthorLastName_2">Yanick</td><td ID="MedicationTaxonomyCode_2">[id number]</td><td ID="MedicationTaxonomyDesc_2"> Nurse Practitioner</td><td ID="MedicationPhoneNumber_2">[phone]</td> [facility] ([facility]) Mirtazapine 15 MG Oral Tablet [Remeron] Remeron 03/02/2019 12: 00:00 AM EDT 15 mg by mouth completed <td ID="Me dicationRxNorm_3">[id number]</td><td ID="MedicationMedication_3">Remeron</td><td ID="MedicationRoute_3">by mouth</td><td ID="MedicationRouteConcept_3">Q18095</td><td ID="MedicationStartDate_3">03/02/2019</td><td ID="MedicationStopDate_3">06/07/2020</td><td ID="MedicationDosageFrequency_3">at bedtime</td><td ID="MedicationDuration_3">30</td><td ID="MedicationFormulaStrength_3">15 mg</td><td ID="MedicationDosageForm_3">tablet</td><td ID="MedicationDosageFormCode_3"></td><td ID="MedicationDosageDescription_3"></td><td ID="MedicationMedicationId_3">[id number]</td><td ID="MedicationAccount_3">[id number]</td><td ID="MedicationNpid_3">[id number]</td><td ID="MedicationAuthorFirstName_3">Jimbo</td><td ID="MedicationAuthorLastName_3">Yanick</td><td ID="MedicationTaxonomyCode_3">[id number]</td><td ID="MedicationTaxonomyDesc_3">Nurse Practitioner</td><td ID="MedicationPhoneNumber_3">[phone]</td> [facility] Insurance Providers Payer name Policy type / Coverage type Policy ID Covered republican ID Covered republican's relationship to almazan Policy Almazan Plan Information [facility] [id number] Patient [id number] [facility] COMMUNITY [id number] Patient [id number] [facility] I [id number] Self [id number] [facility] I [id number] Self [id number] SELF PAY SELF PAY SELF PAY [facility] [id number] SP [id number] SELF PAY SELF PAY [facility] [id number] SP [id number] SELF PAY GENERAL ACCIDENT NO FAUL O [id number] C [id number] [facility] B [id number] S [id number] [facility] [id number] SP [id number] SELF PAY UNAVAILABLE UNAVAILA BLE BCBS [place] PPO [id number] BLUE CROSS BLUE SHIELD -O/P [id number] 18 [id number] UN COMMUNITY PLAN MCDO [id number] SP [id number] [facility] [id number] SP [id number] MEDICAID [id number] SP [id number] MEDICAID M [id number] S [id number] SELF PAY ONLY [id number] SP [id number] [facility](MCA[facility]) O [id number] S [id number] [facility] COMMUNITY PLAN [facility] [id number] SP [id number] [facility] [id number] SP [id number] BCBS [place] PPO 302/[id number] FA2 [id number] BCBS [place] [id number] [id number] OTHER WORKERS COMPENSATION [id number] SP [id number] BLUE [facility] [id number] SP [id number] Problems, Conditions, and Diagnoses Code Display Name Description Problem Type Effective Dates Data Source(s) F12.20 Cannabis dependence, uncomplicated Cannabis Use Disorder, Moderate Condition 08/03/2021 12:00:00 AM EDT [facility] ([facility]) F17.200 Nicotine dependence, unspecified, uncomp licated Tobacco Use Disorder, Moderate Condition 08/03/2021 12:00:00 AM EDT [facility] ([facility]) F43.12 Post-traumatic stress disorder, chronic Post-traumatic stress disorder, chronic Condition 08/03/2021 12:00:00 AM EDT [facility] ([facility]) F25.0 Schizoaffective disorder, bipolar type S chizoaffective Disorder, Bipolar type Condition 08/03/2021 12:00:00 AM EDT [facility] ([facility]) Surgeries/Procedures Procedure Description Date Indications Data Source(s) Brief Individual Psychotherapy - 30 min 08/03/2021 12:00:00 AM EDT - 08/03/2021 12:00:00 AM EDT [facility] ([facility]) Brief Individual Psychotherapy - 30 min 08/03/2021 12: 00:00 AM EDT [facility] ([facility]) Brief Individual Psychotherapy - 30 min 07/13/2021 12:00:00 AM EDT - 07/13/2021 12:00:00 AM EDT [facility] ([facility]) Brief Individual Psychotherapy - 30 min 07/13/2021 12: 00:00 AM EDT [facility] ([facility]) Extended Individual Psychotherapy - 45 min 06/07/2021 12:00:00 AM EDT - 06/07/2021 12:00:00 AM EDT [facility] ([facility]) Extended Individual Psychotherapy - 45 min 12:00:00 AM EDT [facility] ([facility]) Extended Individual Psychotherapy - 45 min 03/29/2021 12:00:00 AM EDT - 03/29/2021 12:00:00 AM EDT [facility] ([facility]) Extended Individual Psychotherapy - 45 min 12:00:00 AM EDT [facility] ([facility]) Extended Individual Psychotherapy - 45 min 03/15/2021 12:00:00 AM EDT - 03/15/2021 12:00:00 AM EDT [facility] ([facility]) Extended Individual Psychotherapy - 45 min 12:00:00 AM EDT [facility] ([facility]) Extended Individual Psychotherapy - 45 min 01/16/2021 12:00:00 AM EDT - 01/16/2021 12:00:00 AM EDT [facility] ([facility]) Extended Individual Psychotherapy - 45 min 12:00:00 AM EDT [facility] ([facility]) OFFICE OUTPATIENT VISIT 15 MINUTES 01/11 12:00:00 AM EDT - 01/11/2021 12:00:00 AM EDT [facility] ([facility] OFFICE OUTPATIENT VISIT 15 MINUTES 01/11/2021 12:00:00 AM EDT [facility] ([facility]) Brief Individual Psychotherapy - 30 min 12/28/2020 12:00:00 AM EDT - 12/28/2020 12:00:00 AM EDT [facility] ([facility]) Brief Individual Psychotherapy - 30 min 12/28/2020 12: 00:00 AM EDT [facility] ([facility]) OFFICE OUTPATIENT VISIT 15 MINUTES 12/14 12:00:00 AM EST - 12/14/2020 12:00:00 AM EST [facility] ([facility]) OFFICE OUTPATIENT VISIT 15 MINUTES 12/14/2020 12:00:00 AM EST [facility] ([facility]) TEMPMHCTelemed-Family and client 1 hr. 0 11/09/2020 12:00:00 AM EST - 11/09/2020 12:00:00 AM EST [facility] ([facility]) TEMPMHCTelemed-Family and client 1 hr. 11/09/2020 12:0 0:00 AM EST [facility] ([facility]) TEMPMHCTelemed-Family and client 1 hr. 0 10/26/2020 12:00:00 AM EST - 10/26/2020 12:00:00 AM EST [facility] ([facility]) TEMPMHCTelemed-Family and client 1 hr. 10/26/2020 12:0 0:00 AM EST [facility] ([facility]) TEMPMHCTelemed-Family and client 1 hr. 1 12:00:00 AM EST - 10/12/2020 12:00:00 AM EST [facility] ([facility]) TEMPMHCTelemed-Family and client 1 hr. 10/12/2020 12:0 0:00 AM EST [facility] ([facility]) MHC Telemed E/M Lvl 3--Est pt 10/09/2020 12:00:00 AM EST - 10/09/2020 12:00:00 AM EST [facility] ([facility]) MHC Telemed E/M Lvl 3--Est pt 10/09/2020 12:00:[address] [facility] ([facility]) FAMILY PSYCHOTHERAPY W/PATIENT PRESENT 1 11/29/2019 12:00:00 AM EST - 09/28/2020 12:00:00 AM EST [facility] ([facility]) FAMILY PSYCHOTHERAPY W/PATIENT PRESENT 09/28/2020 12:0 0:00 AM EST [facility] ([facility]) [id number]"Psychotherapy 0 12:00:00 AM EST - 09/22/2020 12:00:00 AM EST [facility] ([facility]) [id number]"Psychotherapy 09/22/2020 12:00:00 AM EST [facility] ([facility]) FAMILY PSYCHOTHERAPY W/PATIENT PRESENT 1 10/17/2019 12:00:00 AM EST - 08/17/2020 12:00:00 AM EST [facility] ([facility]) FAMILY PSYCHOTHERAPY W/PATIENT PRESENT 08/17/2020 12:0 0:00 AM EST [facility] ([facility]) MHC Telemed E/M Lvl 3--Est pt 07/31/2020 12:00:00 AM EDT - 07/31/2020 12:00:00 AM EDT [facility] ([facility]) MHC Telemed E/M Lvl 3--Est pt 07/31/2020 12:00:00 AM E DT [facility] ([facility]) [id number]"Psychotherapy 0 12:00:00 AM EDT - 07/13/2020 12:00:00 AM EDT [facility] ([facility]) [id number]"Psychotherapy 07/13/2020 12:00:00 AM EDT [facility] ([facility]) MHC Telemed E/M Lvl 3--Est pt 07/04/2020 12:00:00 AM EDT - 07/04/2020 12:00:00 AM EDT [facility] ([facility]) MHC Telemed E/M Lvl 3--Est pt 07/04/2020 12:00:00 AM E DT [facility] ([facility]) TEMPMHCTelemed 30" Psychotherapy 020 12:00:00 AM EDT - 06/15/2020 12:00:00 AM EDT [facility] ([facility]) TEMPMHCTelemed 30" Psychotherapy 06/15/2020 12:00:00 A M EDT [facility] ([facility]) Results No Information Social History Code Duration Value Status Description Data Source(s ) Smoking 08/03/2021 12:00:00 AM EDT Current every day smoker co mpleted Current every day smoker [facility] ([facility]) Smoking 07/13/2021 12:00:00 AM EDT Current every day smoker co mpleted Current every day smoker [facility] ([facility]) Smoking 06/07/2021 12:00:00 AM EDT Current every day smoker co mpleted Current every day smoker [facility] ([facility]) Smoking 03/29/2021 12:00:00 AM EDT Current every day smoker co mpleted Current every day smoker [facility] ([facility]) Smoking 03/15/2021 12:00:00 AM EDT Current every day smoker co mpleted Current every day smoker [facility] ([facility]) Smoking 01/16/2021 12:00:00 AM EDT Current every day smoker co mpleted Current every day smoker [facility] ([facility]) Smoking 01/11/2021 12:00:00 AM EDT Current every day smoker co mpleted Current every day smoker [facility] ([facility]) Smoking 12/28/2020 12:00:00 AM EDT Current every day smoker co mpleted Current every day smoker [facility] ([facility]) Smoking 12/14/2020 12:00:00 AM EST Current every day smoker co mpleted Current every day smoker [facility] ([facility]) Smoking 11/09/2020 12:00:00 AM EST Current every day smoker co mpleted Current every day smoker [facility] ([facility]) Smoking 10/26/2020 12:00:00 AM EST Current every day smoker co mpleted Current every day smoker [facility] ([facility]) Smoking 10/12/2020 12:00:00 AM EST Current every day smoker co mpleted Current every day smoker [facility] ([facility]) Smoking 10/09/2020 12:00:00 AM EST Current every day smoker co mpleted Current every day smoker [facility] ([facility]) Smoking 09/28/2020 12:00:00 AM EST Current every day smoker co mpleted Current every day smoker [facility] ([facility]) Smoking 09/22/2020 12:00:00 AM EST Current every day smoker co mpleted Current every day smoker [facility] ([facility]) Smoking 08/17/2020 12:00:00 AM EST Current every day smoker co mpleted Current every day smoker [facility] ([facility]) Smoking 07/31/2020 12:00:00 AM EDT Current every day smoker co mpleted Current every day smoker [facility] ([facility]) Smoking 07/13/2020 12:00:00 AM EDT Current every day smoker co mpleted Current every day smoker [facility] ([facility]) Smoking 07/04/2020 12:00:00 AM EDT Current every day smoker co mpleted Current every day smoker [facility] ([facility]) Smoking 06/15/2020 12:00:00 AM EDT Current every day smoker co mpleted Current every day smoker [facility] ([facility]) Vital Signs ID Date Data Source UNK Name Value Range Interpretation Code Description Data Source(s) Body height 0.00 in Normal (applies to non-numeric resu lts) 0.00 in [facility] ([facility]) Body weight Measured 0.00 lbs Normal (applies to n on-numeric results) 0.00 lbs [facility] ([facility]) Body mass index (BMI) [Ratio] 0.00 kg/m2 No rmal (applies to non-numeric results) 0.00 kg/m2 [facility] ([facility]) Systolic blood pressure 0 mm[Hg] Normal (applies t o non-numeric results) 0 mm[Hg] [facility] ([facility]) Diastolic blood pressure 0 mm[Hg] Normal (applies to non-numeric results) 0 mm[Hg] [facility] ([facility]) Body height 0.00 in Normal (applies to non-numeric resu lts) 0.00 in [facility] ([facility]) Body weight Measured 0.00 lbs Normal (applies to n on-numeric results) 0.00 lbs [facility] ([facility]) Body mass index (BMI) [Ratio] 0.00 kg/m2 No rmal (applies to non-numeric results) 0.00 kg/m2 [facility] ([facility]) Systolic blood pressure 0 mm[Hg] Normal (applies t o non-numeric results) 0 mm[Hg] [facility] ([facility]) Diastolic blood pressure 0 mm[Hg] Normal (applies to non-numeric results) 0 mm[Hg] [facility] ([facility]) Body height 0.00 in Normal (applies to non-numeric resu lts) 0.00 in [facility] ([facility]) Body weight Measured 0.00 lbs Normal (applies to n on-numeric results) 0.00 lbs [facility] ([facility]) Body mass index (BMI) [Ratio] 0.00 kg/m2 No rmal (applies to non-numeric results) 0.00 kg/m2 [facility] ([facility]) Systolic blood pressure 0 mm[Hg] Normal (applies t o non-numeric results) 0 mm[Hg] [facility] ([facility]) Diastolic blood pressure 0 mm[Hg] Normal (applies to non-numeric results) 0 mm[Hg] [facility] ([facility]) Body height 0.00 in Normal (applies to non-numeric resu lts) 0.00 in [facility] ([facility]) Body weight Measured 0.00 lbs Normal (applies to n on-numeric results) 0.00 lbs [facility] ([facility]) Body mass index (BMI) [Ratio] 0.00 kg/m2 No rmal (applies to non-numeric results) 0.00 kg/m2 [facility] ([facility]) Systolic blood pressure 0 mm[Hg] Normal (applies t o non-numeric results) 0 mm[Hg] [facility] ([facility]) Diastolic blood pressure 0 mm[Hg] Normal (applies to non-numeric results) 0 mm[Hg] [facility] Body height 0.00 in Normal (applies to non-numeric resu lts) 0.00 in [facility] ([facility]) Body weight Measured 0.00 lbs Normal (applies to n on-numeric results) 0.00 lbs [facility] ([facility]) Body mass index (BMI) [Ratio] 0.00 kg/m2 No rmal (applies to non-numeric results) 0.00 kg/m2 [facility] ([facility]) Systolic blood pressure 0 mm[Hg] Normal (applies t o non-numeric results) 0 mm[Hg] [facility] ([facility]) Diastolic blood pressure 0 mm[Hg] Normal (applies to non-numeric results) 0 mm[Hg] [facility] ([facility])
--- OUTSIDE RECORDS SUMMARY | 2021-08-03 21:20 | CCD ---
Author Author Chris Perez Organization Unknown Address [address] [address] Phone Care Team Providers Care Lumber Handler Name Role Phone Rah Perez PCP Allergies, Adverse Reactions, Alerts Concept Allergy Name Reaction Severity Onset Date Status Documentation Date Phone Number Npid Taxonomy Code Taxonomy Desc Author Last Name Author Ju rst Name Concept Type 221715 amoxicillin difficulty breathing Active 016 [id number] Psychiatric/Mental Health Laxmi Napoles RX NORM Problem List Concept Problem Description Status Start Date Created Date Resolv ed Date Snomed Code F25.0 Schizoaffective Disorder, Bipolar type Active 08/26/2018 08/26/2018 F43.12 Post-traumatic stress disorder, chronic Active 10/29/2018 10/29/2018 F17.200 Tobacco Use Disorder, Moderate Active F12.20 Cannabis Use Disorder, Moderate Active 06/07/20 21 Medications Rx Norm Medication Route Route Concept Start Date Stop Date Dosage Mukesh quency Duration Formula Strength Dosage Form Dosage Form Code Dosage Description Medication Id Account Npid Author First Name Author Last Name Taxonomy Code Taxonomy Desc Phone Number [phone] clonazepam by mouth [id number] 05/25/2021 06/24/2021 twice a day 30 0.5 mg tablet 01405 [id number] [phone] Malcolm Varner [id number] Nurse Pr actitioner [phone] [id number] Topamax by mouth [id number] 10/09/2020 07/22/2021 twice a day 30 1 00 mg tablet 05584 [id number] [phone] Clary Herndon [id number] Nurse Nhi ractitioner [id number] [id number] clonidine HCl by mouth [id number] 02/21/2021 07/22/2021 twice a day 30 0.1 mg tablet as needed 59908 [id number] [id number] Clary Herndon [id number] Nurse Practitioner [id number] 616780 Zyprexa by mouth [id number] 02/21/2021 07/22/2021 at bedtime 30 20 m g tablet 56191 [id number] Clary Herndon [id number] Nurse Yoel ctitioner [phone] 705365 lamotrigine by mouth [id number] 03/21/2021 07/22/2021 every morning 30 150 mg tablet 78435 899441 [id number] Clary Herndon [id number] Nurse Practitioner [phone] [id number] mirtazapine by mouth [id number] 03/21/2021 07/22/2021 at bedtime 30 45 mg tablet 87127 [id number] Clary Herndon [id number] Nurse P ractitioner [id number] Social History Social History Element Description Concept Effective Date Smoking Status Current every day smoker [id number] Immunizations No Data in Section Vital Signs No Data in Section Procedures Date Concept Id Description Targeted Site Concept Targeted Site Concept Type 06/06/2021 76693 Extended Individual Psychotherapy - 45 min CPT Patient has no history of implantable de vices Encounters Encounter Start Date End Date Encounter Type Description Diagnosis Di agnosis Desc Location Author First Name Author Last Name Npid Taxonomy Cod e Taxonomy Desc Phone Number Location Addr1 Location Addr2 Location [facility] Location [facility] Location [facility] [id number] 06/06/2021 06/06/2021 40883 Extended Individual Psych otherapy - 45 min F25.0 Schizoaffective disorder, bipolartype [facility] [phone] [id number] Art Therapist [id number] [address] [address] Plan of Treatment No Data in Section Lab Results No Data in Section Instructions No Data in Section Insurance Providers Insurance Id Policy Effective Date Policy Thru Date Company N claudia [id number] 2018 [employer] Managed Janet suggs
[2021-08-04] MEDS ORDERED: NS 1,000 ML IV ONE (00:20)
[2021-08-04 00:31] LABS: BASO % 0.5 % (0.0-1.0); EOS # 0.1 10^3/uL (0.0-0.5); EOS % 0.8 % (0.0-3.0); HEMATOCRIT 46.2 % (42.0-52.0); LYMPH # 1.7 10^3/uL (1.5-5.0); LYMPH % 19.6 % (24.0-44.0); MEAN CORPUSCULAR HEMOGLOBIN 31.5 pg (27.0-33.0); MEAN CORPUSCULAR HGB CONC 34.6 g/dl (32.0-36.5); MEAN CORPUSCULAR VOLUME 90.9 fl (80.0-96.0); MONO # 1.2 10^3/uL (0.0-0.8); MONO % 14.5 % (2.0-8.0); NEUTROPHILS # 5.4 10^3/uL (1.5-8.5); NEUTROPHILS % 64.4 % (36.0-66.0); PLATELET COUNT, AUTOMATED 250 10^3/uL (150-450); RED BLOOD COUNT 5.08 10^6/uL (4.30-6.10); WHITE BLOOD COUNT 8.5 10^3/uL (4.0-10.0)
--- OUTSIDE RECORDS SUMMARY | 2021-08-04 01:32 | CCD ---
Author Author Chris Perez Organization Unknown Address [address] [address] Phone Care Team Providers Care Automotive Painter Helper Name Role Phone Rah Perez PCP Allergies, Adverse Reactions, Alerts Concept Allergy Name Reaction Severity Onset Date Status Documentation Date Phone Number Npid Taxonomy Code Taxonomy Desc Author Last Name Author Ju rst Name Concept Type 197277 amoxicillin difficulty breathing Active 016 [id number] Psychiatric/Mental Health Laxmi Napoles RX NORM Problem List Concept Problem Description Status Start Date Created Date Resolv ed Date Snomed Code F25.0 Schizoaffective Disorder, Bipolar type Active 08/26/2018 08/26/2018 F43.12 Post-traumatic stress disorder, chronic Active 10/29/2018 10/29/2018 F17.200 Tobacco Use Disorder, Moderate Active F12.20 Cannabis Use Disorder, Moderate Active 08/03/20 21 Medications Rx Norm Medication Route Route Concept Start Date Stop Date Dosage Mukesh quency Duration Formula Strength Dosage Form Dosage Form Code Dosage Description Medication Id Account Npid Author First Name Author Last Name Taxonomy Code Taxonomy Desc Phone Number [id number] clonazepam by mouth [id number] 08/03/2021 09/02/2021 twice a day 30 0.5 mg tablet as needed [id number] Malcolm Varner [id number] Nurse Practitioner [phone] [id number] Topamax by mouth [id number] 10/09/2020 09/24/2021 twice a day 30 1 00 mg tablet 80083 [id number] [id number] Clary Herndon [id number] Nurse Nhi sánchez [phone] 189122 clonidine HCl by mouth [id number] 02/21/2021 09/24/2021 twice a day 30 0.1 mg tablet as needed 43556 [id number] Clray Herndon [id number] Nurse Practitioner [phone] 878186 Zyprexa by mouth [id number] 02/21/2021 09/24/2021 at bedtime 30 20 m g tablet 11165 488885 [id number] Clary Herndon [id number] Nurse Yoel ctitioner [phone] 676107 lamotrigine by mouth [id number] 03/21/2021 09/24/2021 every morning 30 150 mg tablet 46787 739552 [id number] Clary Herndon [id number] Nurse Practitioner [phone] 237378 mirtazapine by mouth [id number] 03/21/2021 09/24/2021 at bedtime 30 45 mg tablet 47461 806594 [id number] Clary Herndon [id number] Nurse P ractitioner [phone] 187891 topiramate by mouth [id number] 06/26/2021 09/24/2021 once a day 30 50 mg tablet 94175 [id number] Clarylincoln Herndon [id number] Nurse P ractitioner [phone] Social History Social History Element Description Concept Effective Date Smoking Status Current every day smoker [id number] 2 Immunizations No Data in Section Vital Signs No Data in Section Procedures Date Concept Id Description Targeted Site Concept Targeted Site Concept Type 08/03/2021 [id number] Brief Individual Psychotherapy - 30 min CPT Patient has no history of implantable de vices Encounters Encounter Start Date End Date Encounter Type Description Diagnosis Di agnosis Desc Location Author First Name Author Last Name Npid Taxonomy Cod e Taxonomy Desc Phone Number Location Addr1 Location Addr2 Location [facility] Location [facility] [id number] 08/03/2021 08/03/2021 [id number] Brief Individual Psychoth erapy - 30 min F25.0 Schizoaffective disorder, bipolartype [facility] [id number] [id number] Art Therapist [phone] [address] [address] Plan of Treatment No Data in Section Lab Results No Data in Section Instructions No Data in Section Insurance Providers Insurance Id Policy Effective Date Policy Thru Date Company N claudia [id number] 2018 [employer] Man[employer] M' caigladys
--- OUTSIDE RECORDS SUMMARY | 2021-08-04 01:33 | CCD ---
Author Author [facility] Organization [facility] Address Unknown Phone Unavailable Care Team Providers [facility] H Agent Name Role Phone Rah Perez Unavailable YANICK, H JIMBO CLIENT SOLUTIONS DIRECTOR Unavailable Unavailable YANICK, H JIMBO CLIENT SOLUTIONS DIRECTOR Unavailable Unavailable YANICK, H JIMBO CLIENT SOLUTIONS DIRECTOR Unavailable Unavailable YANICK, H JIMBO CLIENT SOLUTIONS DIRECTOR Unavailable Unavailable YANICK, H JIMBO CLIENT SOLUTIONS DIRECTOR Unavailable Unavailable YANICK, H JIMBO CLIENT SOLUTIONS DIRECTOR Unavailable Unavailable YANICK, H JIMBO CLIENT SOLUTIONS DIRECTOR Unavailable Unavailable YANICK, H JIMBO CLIENT SOLUTIONS DIRECTOR Unavailable Unavailable YANICK, H JIMBO CLIENT SOLUTIONS DIRECTOR Unavailable Unavailable Kay Obrien Unavailable Unavailable Re-disclosure [...] is protected by Article 27-F of the [place] Public Health law. If you continue you may have access to information: Regarding HIV / AIDS; Provided by facilities licensed or operated by the [facility] Office of Mental Health; or Provided by the [facility] Office for People With Developmental Disabilities. If such information is present, then the following [facility] mandated warning applies: This information [...] law may result in a fine or longterm sentence or both. A general authorization for the release of medical or other information is NOT sufficient authorization for further disc losure. Allergies and Adverse Reactions Type Description Substance Reaction Status Data Source(s ) Propensity to adverse reactions to substance amoxicillin Amoxicillin 500 MG Oral Capsule difficulty breathing Active [facility] ([facility]) Propensity to adverse reactions to substance amoxicillin Amoxicillin 500 MG Oral Capsule difficulty breathing Active [facility] ([facility]) Encounters Encounter Providers Location Date Indications Data Source(s ) Brief Individual Psychotherapy - 30 min Attender: [facility] 08/03/2021 11:45:00 AM EDT - 08/03/2021 11:45:00 AM EDT [facility] ([facility]) Attender: [facility] 08/03/2021 12:00:00 AM EDT [facility] ([facility]) Brief Individual Psychotherapy - 30 min Attender: [facility] 07/13/2021 11:15:00 AM EDT - 07/13/2021 11:15:00 AM EDT [facility] ([facility]) Attender: [facility] 07/13/2021 12:00:00 AM EDT [facility] ([facility]) Attender: [facility] 06/07/2021 12:00:00 AM EDT [facility] ([facility]) Extended Individual Psychotherapy - 45 min Attender: [facility] 06/06/2021 01:00:00 AM EDT - 06/06/2021 01:00:00 AM EDT [facility] ([facility]) Extended Individual Psychotherapy - 45 min Attender: [facility] 03/29/2021 05:00:00 AM EDT - 03/29/2021 05:00:00 AM EDT [facility] ([facility]) [facility] 03/29/[facility]21 12:00:00 AM EDT [facility] ([facility]) Extended Individual Psychotherapy - 45 min Attender: [facility] 03/15/2021 05:00:00 AM EDT - 03/15/2021 05:00:00 AM EDT [facility] ([facility]) [facility] 03/15/2021 12:00:00 AM EDT [facility] ([facility]) Extended Individual Psychotherapy - 45 min Attender: [facility] 01/16/2021 01:15:00 AM EDT - 01/16/2021 01:15:00 AM EDT [facility] ([facility]) Attender: [facility] 01/16/2021 12:00:00 AM EDT [facility] ([facility]) Outpatient Attender: JIMBO FANG NP [facility] hattie 01/11/2021 02:00:00 AM EDT - 01/11/2021 02:00:00 AM EDT [facility] ([facility]) Attender: JIMBO FANG NP 01/11/2021 12:00:00 AM EDT [facility] ([facility]) Brief Individual Psychotherapy - 30 min Attender: [facility] 12/28/2020 05:00:00 AM EDT - 12/28/2020 05:00:00 AM EDT [facility] ([facility]) Attender: Leom[facility]to Perez 12/28/2020 12:00:00 AM EDT [facility] ([facility]) Outpatient Attender: JIMBO FANG NP [facility] hattie 12/14/2020 02:00:00 AM EST - 12/14/2020 02:00:00 AM EST [facility] ([facility]) Attender: JIMBO FANG NP 12/14/2020 12:00:00 AM EST [facility] ([facility]) TEMPMHCTelemed-Family and client 1 hr[facility] 10:00:00 AM EST - 11/09/2020 10:00:00 AM EST [facility] ([facility]) Attender: Kay Obrien 11/09/2020 12:00:00 AM EST [facility] ([facility]) TEMPMHCTelemed-Family and client 1 hr. Attender: Kay Obrien [facility] 10/26/2020 10:00:00 AM EST - 10/26/2020 10:00:00 AM EST [facility] ([facility]) Attender: Kay Obrien 10/26/2020 12:00:00 AM EST [facility] ([facility]) TEMPMHCTelemed-Family and client 1 hr. [facility] 10/12/2020 10:00:00 AM EST - 10/12/2020 10:00:00 AM EST [facility] ([facility]) Attender: Kay Obrien 10/12/2020 12:00:00 AM EST [facility] ([facility]) Outpatient Attender: JIBMO FANG NP [facility] Octavio kuhn 10/09/2020 02:30:00 AM EST - 10/09/2020 02:30:00 AM EST [facility] ([facility]) Attender: JIMBO FANG NP 10/09/2020 12:00:00 AM EST [facility] ([facility]) Psychotherapy - Family & Client 1 hour Attender: Kay Micah [facility] 09/28/2020 11:00:00 AM EST - 09/28/2020 11:00:00 AM EST [facility] ([facility]) Attender: Kay Obrien 09/28/2020 12:00:00 AM EST [facility] ([facility]) [id number]"Psychotherapy Attender: Kay [facility]or [facility] 09/22/2020 10:00:00 AM EST - 09/22/2020 10:00:00 AM EST [facility] ([facility]) Attender: Kay Obrien 09/22/2020 12:00:00 AM EST [facility] ([facility]) Psychotherapy - Family & Client 1 hour Attender: Kayyumiko Obrien [facility] 08/17/2020 11:00:00 AM EST - 08/17/2020 11:00:00 AM EST [facility] ([facility]) Attender: Kay Obrien 08/17/2020 12:00:00 AM EST [facility] ([facility]) Outpatient Attender: JIMBO FANG NP [facility] Octavio kuhn 07/31/2020 01:00:00 AM EDT - 07/31/2020 01:00:00 AM EDT [facility] ([facility]) Attender: JIMBO FANG NP 07/31/2020 12:00:00 AM EDT [facility] ([facility]) [id number]"Psychotherapy Attender: Kay Mciah [facility] Bhavesh 07/13/2020 10:00:00 AM EDT - 07/13/2020 10:00:00 AM EDT [facility] ([facility]) Attender: Kay Obrien 07/13/2020 12:00:00 AM EDT [facility] ([facility]) Outpatient Attender: JIMBO FANG NP [facility] Octavio kuhn 07/04/2020 10:30:00 AM EDT - 07/04/2020 10:30:00 AM EDT [facility] ([facility]) Attender: JIMBO FANG NP 07/04/2020 12:00:00 AM EDT [facility] ([facility]) TEMPMHCTelemed 30" Psychotherapy Attender: Kay Micah [facility] 06/15/2020 10:30:00 AM EDT - 06/15/2020 10:30:00 AM EDT [facility] ([facility]) Attender: Kay Obrien 06/15/2020 12:00:00 AM EDT [facility] ([facility]) Functional Status Immunizations Vaccine Date Status Description Data Source(s) COVID-19 VACCINE Moderna 04/26/2021 12:00:00 AM EDT completed [facility] Vaccine Series Complete: YESThis Data wa s Submitted to [facility] Via [employer]. COVID-19 VACCINE Moderna 03/29/2021 12:00:00 AM EDT completed [facility] Vaccine Series Complete: NOThis Data was Submitted to [facility] Via [employer]. Medications Medication Brand Name Start Date Product Form Dose Route Admi nistrative Instructions Pharmacy Instructions Status Indications Reaction Description Data Source(s) Clonazepam 0.5 MG Oral Tablet clonazepam 08/03/2021 12:00:00 AM EDT 0.5 mg by mouth completed <td ID="Medica tionRxNorm_1">702865</td><td ID="MedicationMedication_1">clonazepam</td><td ID="MedicationRoute_1">by mouth</td><td ID="MedicationRouteConcept_1">T31654</td><td ID="MedicationStartDate_1">08/03/2021</td><td ID="MedicationStopDate_1">09/02/2021</td><td ID="MedicationDosageFrequency_1">twice a day</td><td ID="MedicationDuration_1">30</td><td ID="MedicationFormulaStrength_1">0.5 mg</td><td ID="MedicationDosageForm_1">tablet</td><td ID="MedicationDosageFormCode_1"></td><td ID="MedicationDosageDescription_1">as needed</td><td ID="MedicationMedicationId_1">[id number]</td><td ID="MedicationAccount_1">[id number]</td><td ID="MedicationNpid_1">[id number]</td><td ID="MedicationAuthorFirstName_1">Malcolm</td><td ID="MedicationAuthorLastName_1">Varner</td><td ID="MedicationTaxonomyCode_1">[id number]</td><td ID="MedicationTaxonomyDesc_1">Nurse Practitioner</td><td ID="MedicationPhoneNumber_1">[phone]</td> [facility] topiramate 50 MG Oral Tablet topiramate 06/26/2021 12:00:00 AM EDT 50 mg by mouth completed <td ID="Medica tionRxNorm_7">261127</td><td ID="MedicationMedication_7">topiramate</td><td ID="MedicationRoute_7">by mouth</td><td ID="MedicationRouteConcept_7">X48200</td><td ID="MedicationStartDate_7">06/26/2021</td><td ID="MedicationStopDate_7">09/24/2021</td><td ID="MedicationDosageFrequency_7">once a day</td><td ID="MedicationDuration_7">30</td><td ID="MedicationFormulaStrength_7">50 mg</td><td ID="MedicationDosageForm_7">tablet</td><td ID="MedicationDosageFormCode_7"></td><td ID="MedicationDosageDescription_7"></td><td ID="MedicationMedicationId_7">[id number]</td><td ID="MedicationAccount_7">[id number]</td><td ID="MedicationNpid_7">[id number]</td><td ID="MedicationAuthorFirstName_7">Jimbo</td><td ID="MedicationAuthorLastName_7">Yanick</td><td ID="MedicationTaxonomyCode_7">[id number]</td><td ID="MedicationTaxonomyDesc_7">Nurse Practitioner</td><td ID="MedicationPhoneNumber_7">[phone]</td> [facility] ([facility]) Clonazepam 0.5 MG Oral Tablet clonazepam 05/25/2021 12:00:00 AM EDT 0.5 mg by mouth completed <td ID="Medica tionRxNorm_1">532214</td><td ID="MedicationMedication_1">clonazepam</td><td ID="MedicationRoute_1">by mouth</td><td ID="MedicationRouteConcept_1">X57900</td><td ID="MedicationStartDate_1">05/25/2021</td><td ID="MedicationStopDate_1">06/24/2021</td><td ID="MedicationDosageFrequency_1">twice a day</td><td ID="MedicationDuration_1">30</td><td ID="MedicationFormulaStrength_1">0.5 mg</td><td ID="MedicationDosageForm_1">tablet</td><td ID="MedicationDosageFormCode_1"></td><td ID="MedicationDosageDescription_1"></td><td ID="MedicationMedicationId_1">[id number]</td><td ID="MedicationAccount_1">[id number]</td><td ID="MedicationNpid_1">[id number]</td><td ID="MedicationAuthorFirstName_1">Malcolm</td><td ID="MedicationAuthorLastName_1">Varner</td><td ID="MedicationTaxonomyCode_1">[id number]</td><td ID="MedicationTaxonomyDesc_1">Nurse Practitioner</td><td ID="MedicationPhoneNumber_1">[phone]</td> [facility] ([facility]) lamotrigine 150 MG Oral Tablet lamotrigine 03/21/2021 12:00:00 AM EDT 150 mg by mouth completed <td ID="Medica tionRxNorm_4">005591</td><td ID="MedicationMedication_4">lamotrigine</td><td ID="MedicationRoute_4">by mouth</td><td ID="MedicationRouteConcept_4">R11245</td><td ID="MedicationStartDate_4">03/21/2021</td><td ID="MedicationStopDate_4">05/20/2021</td><td ID="MedicationDosageFrequency_4">every morning</td><td ID="MedicationDuration_4">30</td><td ID="MedicationFormulaStrength_4">150 mg</td><td ID="MedicationDosageForm_4">tablet</td><td ID="MedicationDosageFormCode_4"></td><td ID="MedicationDosageDescription_4"> </td><td ID="MedicationMedicationId_4">[id number]</td><td ID="MedicationAccount_4">[id number]</td><td ID="MedicationNpid_4">[id number]</td><td ID="MedicationAuthorFirstName_4">Jimbo</td><td ID="MedicationAuthorLastName_4">Yanick</td><td ID="MedicationTaxonomyCode_4">[id number]</td><td ID="MedicationTaxonomyDesc_4">Nurse Practitioner</td><td ID="MedicationPhoneNumber_4">[phone]</td> [facility] ([facility]) Mirtazapine 45 MG Oral Tablet mirtazapine 03/21/2021 12:00:00 AM EDT 45 mg by mouth completed <td ID="Medica tionRxNorm_6">186399</td><td ID="MedicationMedication_6">mirtazapine</td><td ID="MedicationRoute_6">by mouth</td><td ID="MedicationRouteConcept_6">F99524</td><td ID="MedicationStartDate_6">03/21/2021</td><td ID="MedicationStopDate_6">09/24/2021</td><td ID="MedicationDosageFrequency_6">at bedtime</td><td ID="MedicationDuration_6">30</td><td ID="MedicationFormulaStrength_6">45 mg</td><td ID="MedicationDosageForm_6">tablet</td><td ID="MedicationDosageFormCode_6"></td><td ID="MedicationDosageDescription_6"></td><td ID="MedicationMedicationId_6">[id number]</td><td ID="MedicationAccount_6">[id number]</td><td ID="MedicationNpid_6">[id number]</td><td ID="MedicationAuthorFirstName_6">Jimbo</td><td ID="MedicationAuthorLastName_6">Yanick</td><td ID="MedicationTaxonomyCode_6">[id number]</td><td ID="MedicationTaxonomyDesc_6">Nurse Practitioner</td><td ID="MedicationPhoneNumber_6">[phone]</td> [facility] ([facility]) lamotrigine 150 MG Oral Tablet lamotrigine 03/21/2021 12:00:00 AM EDT 150 mg by mouth completed <td ID="Medica tionRxNorm_5">071279</td><td ID="MedicationMedication_5">lamotrigine</td><td ID="MedicationRoute_5">by mouth</td><td ID="MedicationRouteConcept_5">D00781</td><td ID="MedicationStartDate_5">03/21/2021</td><td ID="MedicationStopDate_5">09/24/2021</td><td ID="MedicationDosageFrequency_5">every morning</td><td ID="MedicationDuration_5">30</td><td ID="MedicationFormulaStrength_5">150 mg</td><td ID="MedicationDosageForm_5">tablet</td><td ID="MedicationDosageFormCode_5"></td><td ID="MedicationDosageDescription_5"> </td><td ID="MedicationMedicationId_5">[id number]</td><td ID="MedicationAccount_5">[id number]</td><td ID="MedicationNpid_5">[id number]</td><td ID="MedicationAuthorFirstName_5">Jimbo</td><td ID="MedicationAuthorLastName_5">Yanick</td><td ID="MedicationTaxonomyCode_5">[id number]</td><td ID="MedicationTaxonomyDesc_5">Nurse Practitioner</td><td ID="MedicationPhoneNumber_5">[phone]</td> [facility] ([facility]) Mirtazapine 45 MG Oral Tablet mirtazapine 03/21/2021 12:00:00 AM EDT 45 mg by mouth completed <td ID="Medica tionRxNorm_5">198350</td><td ID="MedicationMedication_5">mirtazapine</td><td ID="MedicationRoute_5">by mouth</td><td ID="MedicationRouteConcept_5">B85101</td><td ID="MedicationStartDate_5">03/21/2021</td><td ID="MedicationStopDate_5">05/20/2021</td><td ID="MedicationDosageFrequency_5">at bedtime</td><td ID="MedicationDuration_5">30</td><td ID="MedicationFormulaStrength_5">45 mg</td><td ID="MedicationDosageForm_5">tablet</td><td ID="MedicationDosageFormCode_5"></td><td ID="MedicationDosageDescription_5"></td><td ID="MedicationMedicationId_5">[id number]</td><td ID="MedicationAccount_5">[id number]</td><td ID="MedicationNpid_5">[id number]</td><td ID="MedicationAuthorFirstName_5">Jimbo</td><td ID="MedicationAuthorLastName_5">Yanick</td><td ID="MedicationTaxonomyCode_5">[id number]</td><td ID="MedicationTaxonomyDesc_5">Nurse Practitioner</td><td ID="MedicationPhoneNumber_5">[phone]</td> [facility] ([facility]) Clonazepam 0.5 MG Oral Tablet [Klonopin] Klonopin 02/21/2021 12 :00:00 AM EDT 0.5 mg by mouth completed <td ID="Me dicationRxNorm_2">370195</td><td ID="MedicationMedication_2">Klonopin</td><td ID="MedicationRoute_2">by mouth</td><td ID="MedicationRouteConcept_2">N93552</td><td ID="MedicationStartDate_2">02/21/2021</td><td ID="MedicationStopDate_2">04/20/2021</td><td ID="MedicationDosageFrequency_2">twice a day</td><td ID="MedicationDuration_2">30</td><td ID="MedicationFormulaStrength_2">0.5 mg</td><td ID="MedicationDosageForm_2">tablet</td><td ID="MedicationDosageFormCode_2"></td><td ID="MedicationDosageDescription_2"></td><td ID="MedicationMedicationId_2">[id number]</td><td ID="MedicationAccount_2">[id number]</td><td ID="MedicationNpid_2">[id number]</td><td ID="MedicationAuthorFirstName_2">Jimbo</td><td ID="MedicationAuthorLastName_2">Yanick</td><td ID="MedicationTaxonomyCode_2">[id number]</td><td ID="MedicationTaxonomyDesc_2">Nurse Practitioner</td><td ID="MedicationPhoneNumber_2">[phone]</td> [facility] ([facility]) 24 HR Nifedipine 30 MG Extended Release Oral Tablet [Bret ia] Procardia XL 02/21/2021 12:00:00 AM EDT 30 mg by mouth completed <td ID="MedicationRxNorm_1">262151</td><td ID="MedicationMedication_1">Procardia XL</td><td ID="MedicationRoute_1">by mouth</td><td ID="MedicationRouteConcept_1">E94875</td><td ID="MedicationStartDate_1">02/21/2021</td><td ID="MedicationStopDate_1">04/20/2021</td><td ID="MedicationDosageFrequency_1">once a day</td><td ID="MedicationDuration_1">30</td><td ID="MedicationFormulaStrength_1">30 mg</td><td ID="MedicationDosageForm_1">tablet extended release 24hr</td><td ID="MedicationDosageFormCode_1"></td><td ID="MedicationDosageDescription_1"></td><td ID="MedicationMedicationId_1">87225</td><td ID="MedicationAccount_1">[id number]</td><td ID="MedicationNpid_1">[id number]</td><td ID="MedicationAuthorFirstName_1">Jimbo</td><td ID="MedicationAuthorLastName_1">Yanick</td><td ID="MedicationTaxonomyCode_1">[id number]</td><td ID="MedicationTaxonomyDesc_1"> Nurse Practitioner</td><td ID="MedicationPhoneNumber_1">[phone]</td> [facility] ([facility]) olanzapine 20 MG Oral Tablet [Zyprexa] Zyprexa 02/21/2021 12:0 0:00 AM EDT 20 mg by mouth completed <td ID="Me dicationRxNorm_4">942011</td><td ID="MedicationMedication_4">Zyprexa</td><td ID="MedicationRoute_4">by mouth</td><td ID="MedicationRouteConcept_4">E06060</td><td ID="MedicationStartDate_4">02/21/2021</td><td ID="MedicationStopDate_4">09/24/2021</td><td ID="MedicationDosageFrequency_4">at bedtime</td><td ID="MedicationDuration_4">30</td><td ID="MedicationFormulaStrength_4">20 mg</td><td ID="MedicationDosageForm_4">tablet</td><td ID="MedicationDosageFormCode_4"></td><td ID="MedicationDosageDescription_4"></td><td ID="MedicationMedicationId_4">67689</td><td ID="MedicationAccount_4">[id number]</td><td ID="MedicationNpid_4">[id number]</td><td ID="MedicationAuthorFirstName_4">Jimbo</td><td ID="MedicationAuthorLastName_4">Yanick</td><td ID="MedicationTaxonomyCode_4">[id number]</td><td ID="MedicationTaxonomyDesc_4">Nurse Practitioner</td><td ID="MedicationPhoneNumber_4">[phone]</td> [facility] olanzapine 20 MG Oral Tablet [Zyprexa] Zyprexa 02/21/2021 12:0 0:00 AM EDT 20 mg by mouth completed <td ID="Me dicationRxNorm_7">271941</td><td ID="MedicationMedication_7">Zyprexa</td><td ID="MedicationRoute_7">by mouth</td><td ID="MedicationRouteConcept_7">D65057</td><td ID="MedicationStartDate_7">02/21/2021</td><td ID="MedicationStopDate_7">06/19/2021</td><td ID="MedicationDosageFrequency_7">at bedtime</td><td ID="MedicationDuration_7">30</td><td ID="MedicationFormulaStrength_7">20 mg</td><td ID="MedicationDosageForm_7">tablet</td><td ID="MedicationDosageFormCode_7"></td><td ID="MedicationDosageDescription_7"></td><td ID="MedicationMedicationId_7">68505</td><td ID="MedicationAccount_7">[id number]</td><td ID="MedicationNpid_7">[id number]</td><td ID="MedicationAuthorFirstName_7">Jimbo</td><td ID="MedicationAuthorLastName_7">Yanick</td><td ID="MedicationTaxonomyCode_7">[id number]</td><td ID="MedicationTaxonomyDesc_7">Nurse Practitioner</td><td ID="MedicationPhoneNumber_7">[phone]</td> [facility] ([facility]) Mirtazapine 30 MG Oral Tablet mirtazapine 02/21/2021 12:00:00 AM EDT 30 mg by mouth completed <td ID="Medica tionRxNorm_3">922726</td><td ID="MedicationMedication_3">mirtazapine</td><td ID="MedicationRoute_3">by mouth</td><td ID="MedicationRouteConcept_3">H12373</td><td ID="MedicationStartDate_3">02/21/2021</td><td ID="MedicationStopDate_3">04/22/2021</td><td ID="MedicationDosageFrequency_3">at bedtime</td><td ID="MedicationDuration_3">30</td><td ID="MedicationFormulaStrength_3">30 mg</td><td ID="MedicationDosageForm_3">tablet</td><td ID="MedicationDosageFormCode_3"></td><td ID="MedicationDosageDescription_3"></td><td ID="MedicationMedicationId_3">77337</td><td ID="MedicationAccount_3">[id number]</td><td ID="MedicationNpid_3">[id number]</td><td ID="MedicationAuthorFirstName_3">Jimbo</td><td ID="MedicationAuthorLastName_3">Yanick</td><td ID="MedicationTaxonomyCode_3">[id number]</td><td ID="MedicationTaxonomyDesc_3">Nurse Practitioner</td><td ID="MedicationPhoneNumber_3">[phone]</td> [facility] ([facility]) olanzapine 20 MG Oral Tablet [Zyprexa] Zyprexa 02/21/2021 12:0 0:00 AM EDT 20 mg by mouth completed <td ID="Me dicationRxNorm_8">766641</td><td ID="MedicationMedication_8">Zyprexa</td><td ID="MedicationRoute_8">by mouth</td><td ID="MedicationRouteConcept_8">V57517</td><td ID="MedicationStartDate_8">02/21/2021</td><td ID="MedicationStopDate_8">05/22/2021</td><td ID="MedicationDosageFrequency_8">at bedtime</td><td ID="MedicationDuration_8">30</td><td ID="MedicationFormulaStrength_8">20 mg</td><td ID="MedicationDosageForm_8">tablet</td><td ID="MedicationDosageFormCode_8"></td><td ID="MedicationDosageDescription_8"></td><td ID="MedicationMedicationId_8">64125</td><td ID="MedicationAccount_8">[id number]</td><td ID="MedicationNpid_8">[id number]</td><td ID="MedicationAuthorFirstName_8">Jimbo</td><td ID="MedicationAuthorLastName_8">Yanick</td><td ID="MedicationTaxonomyCode_8">[id number]</td><td ID="MedicationTaxonomyDesc_8">Nurse Practitioner</td><td ID="MedicationPhoneNumber_8">[phone]</td> [facility] ([facility]) lamotrigine 25 MG Oral Tablet lamotrigine 02/21/2021 12:00:00 AM EDT 25 mg by mouth completed <td ID="Medica tionRxNorm_7">782372</td><td ID="MedicationMedication_7">lamotrigine</td><td ID="MedicationRoute_7">by mouth</td><td ID="MedicationRouteConcept_7">D34496</td><td ID="MedicationStartDate_7">02/21/2021</td><td ID="MedicationStopDate_7">05/22/2021</td><td ID="MedicationDosageFrequency_7">once a day</td><td ID="MedicationDuration_7">30</td><td ID="MedicationFormulaStrength_7">25 mg</td><td ID="MedicationDosageForm_7">tablet</td><td ID="MedicationDosageFormCode_7"></td><td ID="MedicationDosageDescription_7"></td><td ID="MedicationMedicationId_7">[id number]</td><td ID="MedicationAccount_7">[id number]</td><td ID="MedicationNpid_7">[id number]</td><td ID="MedicationAuthorFirstName_7">Jimbo</td><td ID="MedicationAuthorLastName_7">Yanick</td><td ID="MedicationTaxonomyCode_7">[id number]</td><td ID="MedicationTaxonomyDesc_7">Nurse Practitioner</td><td ID="MedicationPhoneNumber_7">[phone]</td> [facility] ([facility]) Clonidine Hydrochloride 0.1 MG Oral Tablet clonidine HCl 02/21/2021 12:00:00 AM EDT 0.1 mg by mouth completed <td ID="MedicationRxNorm_5">372833</td><td ID="MedicationMedication_5">clonidine HCl</td><td ID="MedicationRoute_5">by mouth</td><td ID="MedicationRouteConcept_5">J54644</td><td ID="MedicationStartDate_5">02/21/2021</td><td ID="MedicationStopDate_5">04/22/2021</td><td ID="MedicationDosageFrequency_5">twice a day</td><td ID="MedicationDuration_5">30</td><td ID="MedicationFormulaStrength_5">0.1 mg</td><td ID="MedicationDosageForm_5">tablet</td><td ID="MedicationDosageFormCode_5"></td><td ID="MedicationDosageDescription_5">as needed</td><td ID="MedicationMedicationId_5">[id number]</td><td ID="MedicationAccount_5">[id number]</td><td ID="MedicationNpid_5">[id number]</td><td ID="MedicationAuthorFirstName_5">Jimbo</td><td ID="MedicationAuthorLastName_5">Yanick</td><td ID="MedicationTaxonomyCode_5">[id number]</td><td ID="MedicationTaxonomyDesc_5">Nurse Practitioner</td><td ID="MedicationPhoneNumber_5">[phone]</td> [facility] ([facility]) Clonidine Hydrochloride 0.1 MG Oral Tablet clonidine HCl 02/21/2021 12:00:00 AM EDT 0.1 mg by mouth completed <td ID="MedicationRxNorm_3">114102</td><td ID="MedicationMedication_3">clonidine HCl</td><td ID="MedicationRoute_3">by mouth</td><td ID="MedicationRouteConcept_3">Q03261</td><td ID="MedicationStartDate_3">02/21/2021</td><td ID="MedicationStopDate_3">09/24/2021</td><td ID="MedicationDosageFrequency_3">twice a day</td><td ID="MedicationDuration_3">30</td><td ID="MedicationFormulaStrength_3">0.1 mg</td><td ID="MedicationDosageForm_3">tablet</td><td ID="MedicationDosageFormCode_3"></td><td ID="MedicationDosageDescription_3">as needed</td><td ID="MedicationMedicationId_3">28747</td><td ID="MedicationAccount_3">[id number]</td><td ID="MedicationNpid_3">[id number]</td><td ID="MedicationAuthorFirstName_3">Jimbo</td><td ID="MedicationAuthorLastName_3">Yanick</td><td ID="MedicationTaxonomyCode_3">[id number]</td><td ID="MedicationTaxonomyDesc_3">Nurse Practitioner</td><td ID="MedicationPhoneNumber_3">[phone]</td> [facility] ([facility]) lamotrigine 100 MG Oral Tablet lamotrigine 01/11/2021 12:00:00 AM EDT 100 mg by mouth completed <td ID="Medica tionRxNorm_1">779241</td><td ID="MedicationMedication_1">lamotrigine</td><td ID="MedicationRoute_1">by mouth</td><td ID="MedicationRouteConcept_1">M21501</td><td ID="MedicationStartDate_1">01/11/2021</td><td ID="MedicationStopDate_1">02/10/2021</td><td ID="MedicationDosageFrequency_1">every morning</td><td ID="MedicationDuration_1">30</td><td ID="MedicationFormulaStrength_1">100 mg</td><td ID="MedicationDosageForm_1">tablet</td><td ID="MedicationDosageFormCode_1"></td><td ID="MedicationDosageDescription_1"> </td><td ID="MedicationMedicationId_1">74128</td><td ID="MedicationAccount_1">[id number]</td><td ID="MedicationNpid_1">[id number]</td><td ID="MedicationAuthorFirstName_1">Jimbo</td><td ID="MedicationAuthorLastName_1">Yanick</td><td ID="MedicationTaxonomyCode_1">[id number]</td><td ID="MedicationTaxonomyDesc_1">Nurse Practitioner</td><td ID="MedicationPhoneNumber_1">[phone]</td> [facility] ([facility]) lamotrigine 25 MG Oral Tablet lamotrigine 12/14/2020 12:00:00 AM EST 25 mg by mouth completed <td ID="Medica tionRxNorm_2">378714</td><td ID="MedicationMedication_2">lamotrigine</td><td ID="MedicationRoute_2">by mouth</td><td ID="MedicationRouteConcept_2">X88707</td><td ID="MedicationStartDate_2">12/14/2020</td><td ID="MedicationStopDate_2">02/12/2021</td><td ID="MedicationDosageFrequency_2">every morning</td><td ID="MedicationDuration_2">30</td><td ID="MedicationFormulaStrength_2">25 mg</td><td ID="MedicationDosageForm_2">tablet</td><td ID="MedicationDosageFormCode_2"></td><td ID="MedicationDosageDescription_2"> </td><td ID="MedicationMedicationId_2">24997</td><td ID="MedicationAccount_2">[id number]</td><td ID="MedicationNpid_2">[id number]</td><td ID="MedicationAuthorFirstName_2">Jimbo</td><td ID="MedicationAuthorLastName_2">Yanick</td><td ID="MedicationTaxonomyCode_2">[id number]</td><td ID="MedicationTaxonomyDesc_2">Nurse Practitioner</td><td ID="MedicationPhoneNumber_2">[phone]</td> [facility] ([facility]) Mirtazapine 30 MG Oral Tablet mirtazapine 12/14/2020 12:00:00 AM EST 30 mg by mouth completed <td ID="Medica tionRxNorm_2">114936</td><td ID="MedicationMedication_2">mirtazapine</td><td ID="MedicationRoute_2">by mouth</td><td ID="MedicationRouteConcept_2">B22002</td><td ID="MedicationStartDate_2">12/14/2020</td><td ID="MedicationStopDate_2">02/12/2021</td><td ID="MedicationDosageFrequency_2">at bedtime</td><td ID="MedicationDuration_2">30</td><td ID="MedicationFormulaStrength_2">30 mg</td><td ID="MedicationDosageForm_2">tablet</td><td ID="MedicationDosageFormCode_2"></td><td ID="MedicationDosageDescription_2"></td><td ID="MedicationMedicationId_2">62237</td><td ID="MedicationAccount_2">[id number]</td><td ID="MedicationNpid_2">[id number]</td><td ID="MedicationAuthorFirstName_2">Jimbo</td><td ID="MedicationAuthorLastName_2">Yanick</td><td ID="MedicationTaxonomyCode_2">[id number]</td><td ID="MedicationTaxonomyDesc_2">Nurse Practitioner</td><td ID="MedicationPhoneJimi_2">[phone]</td> [facility] ([facility]) Clonidine Hydrochloride 0.1 MG Oral Tablet clonidine HCl 12/14/2020 12:00:00 AM EST 0.1 mg by mouth completed <td ID="MedicationRxNorm_4">297957</td><td ID="MedicationMedication_4">clonidine HCl</td><td ID="MedicationRoute_4">by mouth</td><td ID="MedicationRouteConcept_4">R36739</td><td ID="MedicationStartDate_4">12/14/2020</td><td ID="MedicationStopDate_4">02/12/2021</td><td ID="MedicationDosageFrequency_4">three times a day</td><td ID="MedicationDuration_4">30</td><td ID="MedicationFormulaStrength_4">0.1 mg</td><td ID="MedicationDosageForm_4">tablet</td><td ID="MedicationDosageFormCode_4"></td><td ID="MedicationDosageDescription_4">as needed</td><td ID="MedicationMedicationId_4">44143</td><td ID="MedicationAccount_4">[id number]</td><td ID="MedicationNpid_4">[id number]</td><td ID="MedicationAuthorFirstName_4">Jimbo</td><td ID="MedicationAuthorLastName_4">Yanick</td><td ID="MedicationTaxonomyCode_4">[id number]</td><td ID="MedicationTaxonomyDesc_4">Nurse Practitioner</td><td ID="MedicationPhoneNumber_4">[phone]</td> [facility] ([facility]) 12 HR Bupropion Hydrochloride 100 MG Extended Release Oral Tablet [Wellbutrin] Wellbutrin SR 10/09/2020 12:00:00 AM EST 100 mg by mouth co mpleted <td ID="MedicationRxNorm_6">431952</td><td ID="MedicationMedication_6">Wellbutrin SR</td><td ID="MedicationRoute_6">by mouth</td><td ID="MedicationRouteConcept_6">A89236</td><td ID="MedicationStartDate_6">10/09/2020</td><td ID="MedicationStopDate_6">03/14/2021</td><td ID="MedicationDosageFrequency_6">every morning</td><td ID="MedicationDuration_6">30</td><td ID="MedicationFormulaStrength_6">100 mg</td><td ID="MedicationDosageForm_6">tablet sustained-release 12 hr</td><td ID="MedicationDosageFormCode_6"></td><td ID="MedicationDosageDescription_6"></td><td ID="MedicationMedicationId_6">68443</td><td ID="MedicationAccount_6">[id number]</td><td ID="MedicationNpid_6">[id number]</td><td ID="MedicationAuthorFirstName_6">Jimbo</td><td ID="MedicationAuthorLastName_6">Yanick</td><td ID="MedicationTaxonomyCode_6">[id number]</td><td ID="MedicationTaxonomyDesc_6"> Nurse Practitioner</td><td ID="MedicationPhoneNumber_6">[phone]</td> [facility] ([facility]) 12 HR Bupropion Hydrochloride 100 MG Extended Release Oral Tablet [Wellbutrin] Wellbutrin SR 10/09/2020 12:00:00 AM EST 100 mg by mouth co mpleted <td ID="MedicationRxNorm_3">635137</td><td ID="MedicationMedication_3">Wellbutrin SR</td><td ID="MedicationRoute_3">by mouth</td><td ID="MedicationRouteConcept_3">Y39949</td><td ID="MedicationStartDate_3">10/09/2020</td><td ID="MedicationStopDate_3">01/07/2021</td><td ID="MedicationDosageFrequency_3">every morning</td><td ID="MedicationDuration_3">30</td><td ID="MedicationFormulaStrength_3">100 mg</td><td ID="MedicationDosageForm_3">tablet sustained-release 12 hr</td><td ID="MedicationDosageFormCode_3"></td><td ID="MedicationDosageDescription_3"></td><td ID="MedicationMedicationId_3">55492</td><td ID="MedicationAccount_3">[id number]</td><td ID="MedicationNpid_3">[id number]</td><td ID="MedicationAuthorFirstName_3">Jimbo</td><td ID="MedicationAuthorLastName_3">Yanick</td><td ID="MedicationTaxonomyCode_3">[id number]</td><td ID="MedicationTaxonomyDesc_3"> Nurse Practitioner</td><td ID="MedicationPhoneNumber_3">[phone]</td> [facility] ([facility]) topiramate 100 MG Oral Tablet [Topamax] Topamax 10/09/2020 12: 00:00 AM EST 100 mg by mouth completed <td ID="Me dicationRxNorm_2">300283</td><td ID="MedicationMedication_2">Topamax</td><td ID="MedicationRoute_2">by mouth</td><td ID="MedicationRouteConcept_2">Q97926</td><td ID="MedicationStartDate_2">10/09/2020</td><td ID="MedicationStopDate_2">09/24/2021</td><td ID="MedicationDosageFrequency_2">twice a day</td><td ID="MedicationDuration_2">30</td><td ID="MedicationFormulaStrength_2">100 mg</td><td ID="MedicationDosageForm_2">tablet</td><td ID="MedicationDosageFormCode_2"></td><td ID="MedicationDosageDescription_2"></td><td ID="MedicationMedicationId_2">68315</td><td ID="MedicationAccount_2">[id number]</td><td ID="MedicationNpid_2">[id number]</td><td ID="MedicationAuthorFirstName_2">Jimbo</td><td ID="MedicationAuthorLastName_2">Yanick</td><td ID="MedicationTaxonomyCode_2">[id number]</td><td ID="MedicationTaxonomyDesc_2">Nurse Practitioner</td><td ID="MedicationPhoneNumber_2">[phone]</td> [facility] ([facility]) topiramate 100 MG Oral Tablet [Topamax] Topamax 10/09/2020 12: 00:00 AM EST 100 mg by mouth completed <td ID="Me dicationRxNorm_4">091605</td><td ID="MedicationMedication_4">Topamax</td><td ID="MedicationRoute_4">by mouth</td><td ID="MedicationRouteConcept_4">E86489</td><td ID="MedicationStartDate_4">10/09/2020</td><td ID="MedicationStopDate_4">03/14/2021</td><td ID="MedicationDosageFrequency_4">twice a day</td><td ID="MedicationDuration_4">30</td><td ID="MedicationFormulaStrength_4">100 mg</td><td ID="MedicationDosageForm_4">tablet</td><td ID="MedicationDosageFormCode_4"></td><td ID="MedicationDosageDescription_4"></td><td ID="MedicationMedicationId_4">84075</td><td ID="MedicationAccount_4">[id number]</td><td ID="MedicationNpid_4">[id number]</td><td ID="MedicationAuthorFirstName_4">Jimbo</td><td ID="MedicationAuthorLastName_4">Yanick</td><td ID="MedicationTaxonomyCode_4">[id number]</td><td ID="MedicationTaxonomyDesc_4">Nurse Practitioner</td><td ID="MedicationPhoneNumber_4">[phone]</td> [facility] ([facility]) olanzapine 20 MG Oral Tablet [Zyprexa] Zyprexa 10/09/2020 12:0 0:00 AM EST 20 mg by mouth completed <td ID="Me dicationRxNorm_1">310034</td><td ID="MedicationMedication_1">Zyprexa</td><td ID="MedicationRoute_1">by mouth</td><td ID="MedicationRouteConcept_1">S75697</td><td ID="MedicationStartDate_1">10/09/2020</td><td ID="MedicationStopDate_1">01/07/2021</td><td ID="MedicationDosageFrequency_1">at bedtime</td><td ID="MedicationDuration_1">30</td><td ID="MedicationFormulaStrength_1">20 mg</td><td ID="MedicationDosageForm_1">tablet</td><td ID="MedicationDosageFormCode_1"></td><td ID="MedicationDosageDescription_1"></td><td ID="MedicationMedicationId_1">91186</td><td ID="MedicationAccount_1">[id number]</td><td ID="MedicationNpid_1">[id number]</td><td ID="MedicationAuthorFirstName_1">Jimbo</td><td ID="MedicationAuthorLastName_1">Yanick</td><td ID="MedicationTaxonomyCode_1">[id number]</td><td ID="MedicationTaxonomyDesc_1">Nurse Practitioner</td><td ID="MedicationPhoneNumber_1">[phone]</td> [facility] ([facility]) 12 HR Bupropion Hydrochloride 100 MG Extended Release Oral Tablet [Wellbutrin] Wellbutrin SR 10/09/2020 12:00:00 AM EST 100 mg by mouth co mpleted <td ID="MedicationRxNorm_5">837324</td><td ID="MedicationMedication_5">Wellbutrin SR</td><td ID="MedicationRoute_5">by mouth</td><td ID="MedicationRouteConcept_5">F44739</td><td ID="MedicationStartDate_5">10/09/2020</td><td ID="MedicationStopDate_5">03/14/2021</td><td ID="MedicationDosageFrequency_5">every morning</td><td ID="MedicationDuration_5">30</td><td ID="MedicationFormulaStrength_5">100 mg</td><td ID="MedicationDosageForm_5">tablet sustained-release 12 hr</td><td ID="MedicationDosageFormCode_5"></td><td ID="MedicationDosageDescription_5"></td><td ID="MedicationMedicationId_5">05462</td><td ID="MedicationAccount_5">[id number]</td><td ID="MedicationNpid_5">[id number]</td><td ID="MedicationAuthorFirstName_5">Jimbo</td><td ID="MedicationAuthorLastName_5">Yanick</td><td ID="MedicationTaxonomyCode_5">[id number]</td><td ID="MedicationTaxonomyDesc_5"> Nurse Practitioner</td><td ID="MedicationPhoneNumber_5">[phone]</td> [facility] ([facility]) topiramate 100 MG Oral Tablet [Topamax] Topamax 10/09/2020 12: 00:00 AM EST 100 mg by mouth completed <td ID="Me dicationRxNorm_5">606983</td><td ID="MedicationMedication_5">Topamax</td><td ID="MedicationRoute_5">by mouth</td><td ID="MedicationRouteConcept_5">X95314</td><td ID="MedicationStartDate_5">10/09/2020</td><td ID="MedicationStopDate_5">03/14/2021</td><td ID="MedicationDosageFrequency_5">twice a day</td><td ID="MedicationDuration_5">30</td><td ID="MedicationFormulaStrength_5">100 mg</td><td ID="MedicationDosageForm_5">tablet</td><td ID="MedicationDosageFormCode_5"></td><td ID="MedicationDosageDescription_5"></td><td ID="MedicationMedicationId_5">45532</td><td ID="MedicationAccount_5">[id number]</td><td ID="MedicationNpid_5">[id number]</td><td ID="MedicationAuthorFirstName_5">Jimbo</td><td ID="MedicationAuthorLastName_5">Yanick</td><td ID="MedicationTaxonomyCode_5">[id number]</td><td ID="MedicationTaxonomyDesc_5">Nurse Practitioner</td><td ID="MedicationPhoneNumber_5">[phone]</td> [facility] ([facility]) Mirtazapine 30 MG Oral Tablet mirtazapine 10/09/2020 12:00:00 AM EST 30 mg by mouth completed <td ID="Medica tionRxNorm_1">251686</td><td ID="MedicationMedication_1">mirtazapine</td><td ID="MedicationRoute_1">by mouth</td><td ID="MedicationRouteConcept_1">N72667</td><td ID="MedicationStartDate_1">10/09/2020</td><td ID="MedicationStopDate_1">12/08/2020</td><td ID="MedicationDosageFrequency_1">at bedtime</td><td ID="MedicationDuration_1">30</td><td ID="MedicationFormulaStrength_1">30 mg</td><td ID="MedicationDosageForm_1">tablet</td><td ID="MedicationDosageFormCode_1"></td><td ID="MedicationDosageDescription_1"></td><td ID="MedicationMedicationId_1">58293</td><td ID="MedicationAccount_1">[id number]</td><td ID="MedicationNpid_1">[id number]</td><td ID="MedicationAuthorFirstName_1">Jimbo</td><td ID="MedicationAuthorLastName_1">Yanick</td><td ID="MedicationTaxonomyCode_1">[id number]</td><td ID="MedicationTaxonomyDesc_1">Nurse Practitioner</td><td ID="MedicationPhoneNumber_1">[phone]</td> [facility] ([facility]) topiramate 100 MG Oral Tablet [Topamax] Topamax 10/09/2020 12: 00:00 AM EST 100 mg by mouth completed <td ID="Me dicationRxNorm_6">140599</td><td ID="MedicationMedication_6">Topamax</td><td ID="MedicationRoute_6">by mouth</td><td ID="MedicationRouteConcept_6">H24412</td><td ID="MedicationStartDate_6">10/09/2020</td><td ID="MedicationStopDate_6">06/19/2021</td><td ID="MedicationDosageFrequency_6">twice a day</td><td ID="MedicationDuration_6">30</td><td ID="MedicationFormulaStrength_6">100 mg</td><td ID="MedicationDosageForm_6">tablet</td><td ID="MedicationDosageFormCode_6"></td><td ID="MedicationDosageDescription_6"></td><td ID="MedicationMedicationId_6">16397</td><td ID="MedicationAccount_6">[id number]</td><td ID="MedicationNpid_6">[id number]</td><td ID="MedicationAuthorFirstName_6">Jimbo</td><td ID="MedicationAuthorLastName_6">Yanick</td><td ID="MedicationTaxonomyCode_6">[id number]</td><td ID="MedicationTaxonomyDesc_6">Nurse Practitioner</td><td ID="MedicationPhoneNumber_6">[phone]</td> [facility] ([facility]) 12 HR Bupropion Hydrochloride 100 MG Extended Release Oral Tablet [Wellbutrin] Wellbutrin SR 07/04/2020 12:00:00 AM EDT 100 mg by mouth co mpleted <td ID="MedicationRxNorm_2">782987</td><td ID="MedicationMedication_2">Wellbutrin SR</td><td ID="MedicationRoute_2">by mouth</td><td ID="MedicationRouteConcept_2">U44563</td><td ID="MedicationStartDate_2">07/04/2020</td><td ID="MedicationStopDate_2">10/02/2020</td><td ID="MedicationDosageFrequency_2">every morning</td><td ID="MedicationDuration_2">30</td><td ID="MedicationFormulaStrength_2">100 mg</td><td ID="MedicationDosageForm_2">tablet sustained-release 12 hr</td><td ID="MedicationDosageFormCode_2"></td><td ID="MedicationDosageDescription_2"></td><td ID="MedicationMedicationId_2">93524</td><td ID="MedicationAccount_2">[id number]</td><td ID="MedicationNpid_2">[id number]</td><td ID="MedicationAuthorFirstName_2">Jimbo</td><td ID="MedicationAuthorLastName_2">Yanick</td><td ID="MedicationTaxonomyCode_2">[id number]</td><td ID="MedicationTaxonomyDesc_2"> Nurse Practitioner</td><td ID="MedicationPhoneNumber_2">[phone]</td> [facility] ([facility]) lamotrigine 100 MG Oral Tablet lamotrigine 07/04/2020 12:00:00 AM EDT 100 mg by mouth completed <td ID="Medica tionRxNorm_3">823923</td><td ID="MedicationMedication_3">lamotrigine</td><td ID="MedicationRoute_3">by mouth</td><td ID="MedicationRouteConcept_3">A48276</td><td ID="MedicationStartDate_3">07/04/2020</td><td ID="MedicationStopDate_3">08/03/2020</td><td ID="MedicationDosageFrequency_3">every morning</td><td ID="MedicationDuration_3">30</td><td ID="MedicationFormulaStrength_3">100 mg</td><td ID="MedicationDosageForm_3">tablet</td><td ID="MedicationDosageFormCode_3"></td><td ID="MedicationDosageDescription_3"> </td><td ID="MedicationMedicationId_3">80538</td><td ID="MedicationAccount_3">[id number]</td><td ID="MedicationNpid_3">[id number]</td><td ID="MedicationAuthorFirstName_3">Jimbo</td><td ID="MedicationAuthorLastName_3">Yanick</td><td ID="MedicationTaxonomyCode_3">[id number]</td><td ID="MedicationTaxonomyDesc_3">Nurse Practitioner</td><td ID="MedicationPhoneNumber_3">[phone]</td> [facility] ([facility]) topiramate 100 MG Oral Tablet [Topamax] Topamax 07/04/2020 12: 00:00 AM EDT 100 mg by mouth completed <td ID="Me dicationRxNorm_3">710077</td><td ID="MedicationMedication_3">Topamax</td><td ID="MedicationRoute_3">by mouth</td><td ID="MedicationRouteConcept_3">Q39852</td><td ID="MedicationStartDate_3">07/04/2020</td><td ID="MedicationStopDate_3">10/02/2020</td><td ID="MedicationDosageFrequency_3">twice a day</td><td ID="MedicationDuration_3">30</td><td ID="MedicationFormulaStrength_3">100 mg</td><td ID="MedicationDosageForm_3">tablet</td><td ID="MedicationDosageFormCode_3"></td><td ID="MedicationDosageDescription_3"></td><td ID="MedicationMedicationId_3">57072</td><td ID="MedicationAccount_3">[id number]</td><td ID="MedicationNpid_3">[id number]</td><td ID="MedicationAuthorFirstName_3">Jimbo</td><td ID="MedicationAuthorLastName_3">Yanick</td><td ID="MedicationTaxonomyCode_3">[id number]</td><td ID="MedicationTaxonomyDesc_3">Nurse Practitioner</td><td ID="MedicationPhoneNumber_3">[phone]</td> [facility] ([facility]) olanzapine 20 MG Oral Tablet [Zyprexa] Zyprexa 07/04/2020 12:0 0:00 AM EDT 20 mg by mouth completed <td ID="Me dicationRxNorm_3">936124</td><td ID="MedicationMedication_3">Zyprexa</td><td ID="MedicationRoute_3">by mouth</td><td ID="MedicationRouteConcept_3">I31065</td><td ID="MedicationStartDate_3">07/04/2020</td><td ID="MedicationStopDate_3">10/02/2020</td><td ID="MedicationDosageFrequency_3">at bedtime</td><td ID="MedicationDuration_3">30</td><td ID="MedicationFormulaStrength_3">20 mg</td><td ID="MedicationDosageForm_3">tablet</td><td ID="MedicationDosageFormCode_3"></td><td ID="MedicationDosageDescription_3"></td><td ID="MedicationMedicationId_3">22875</td><td ID="MedicationAccount_3">[id number]</td><td ID="MedicationNpid_3">[id number]</td><td ID="MedicationAuthorFirstName_3">Jimbo</td><td ID="MedicationAuthorLastName_3">Yanick</td><td ID="MedicationTaxonomyCode_3">[id number]</td><td ID="MedicationTaxonomyDesc_3">Nurse Practitioner</td><td ID="MedicationPhoneNumber_3">[phone]</td> [facility] ([facility]) 12 HR Bupropion Hydrochloride 100 MG Extended Release Oral Tablet [Wellbutrin] Wellbutrin SR 07/04/2020 12:00:00 AM EDT 100 mg by mouth co mpleted <td ID="MedicationRxNorm_4">636405</td><td ID="MedicationMedication_4">Wellbutrin SR</td><td ID="MedicationRoute_4">by mouth</td><td ID="MedicationRouteConcept_4">Z99342</td><td ID="MedicationStartDate_4">07/04/2020</td><td ID="MedicationStopDate_4">10/02/2020</td><td ID="MedicationDosageFrequency_4">every morning</td><td ID="MedicationDuration_4">30</td><td ID="MedicationFormulaStrength_4">100 mg</td><td ID="MedicationDosageForm_4">tablet sustained-release 12 hr</td><td ID="MedicationDosageFormCode_4"></td><td ID="MedicationDosageDescription_4"></td><td ID="MedicationMedicationId_4">24007</td><td ID="MedicationAccount_4">[id number]</td><td ID="MedicationNpid_4">[id number]</td><td ID="MedicationAuthorFirstName_4">Jimbo</td><td ID="MedicationAuthorLastName_4">Yanick</td><td ID="MedicationTaxonomyCode_4">[id number]</td><td ID="MedicationTaxonomyDesc_4"> Nurse Practitioner</td><td ID="MedicationPhoneNumber_4">[phone]</td> [facility] ([facility]) Clonidine Hydrochloride 0.1 MG Oral Tablet clonidine HCl 04/03/2020 12:00:00 AM EDT 0.1 mg by mouth completed <td ID="MedicationRxNorm_1">622790</td><td ID="MedicationMedication_1">clonidine HCl</td><td ID="MedicationRoute_1">by mouth</td><td ID="MedicationRouteConcept_1">K61949</td><td ID="MedicationStartDate_1">04/03/2020</td><td ID="MedicationStopDate_1">09/02/2020</td><td ID="MedicationDosageFrequency_1">twice a day</td><td ID="MedicationDuration_1">30</td><td ID="MedicationFormulaStrength_1">0.1 mg</td><td ID="MedicationDosageForm_1">tablet</td><td ID="MedicationDosageFormCode_1"></td><td ID="MedicationDosageDescription_1">as needed</td><td ID="MedicationMedicationId_1">61948</td><td ID="MedicationAccount_1">[id number]</td><td ID="MedicationNpid_1">[id number]</td><td ID="MedicationAuthorFirstName_1">Jimbo</td><td ID="MedicationAuthorLastName_1">Yanick</td><td ID="MedicationTaxonomyCode_1">[id number]</td><td ID="MedicationTaxonomyDesc_1">Nurse Practitioner</td><td ID="MedicationPhoneNumber_1">[phone]</td> [facility] ([facility]) Clonidine Hydrochloride 0.1 MG Oral Tablet clonidine HCl 04/03/2020 12:00:00 AM EDT 0.1 mg by mouth completed <td ID="MedicationRxNorm_2">682812</td><td ID="MedicationMedication_2">clonidine HCl</td><td ID="MedicationRoute_2">by mouth</td><td ID="MedicationRouteConcept_2">[id number]</td><td ID="MedicationStartDate_2">04/03/2020</td><td ID="MedicationStopDate_2">09/02/2020</td><td ID="MedicationDosageFrequency_2">twice a day</td><td ID="MedicationDuration_2">30</td><td ID="MedicationFormulaStrength_2">0.1 mg</td><td ID="MedicationDosageForm_2">tablet</td><td ID="MedicationDosageFormCode_2"></td><td ID="MedicationDosageDescription_2">as needed</td><td ID="MedicationMedicationId_2">[id number]</td><td ID="MedicationAccount_2">[id number]</td><td ID="MedicationNpid_2">[id number]</td><td ID="MedicationAuthorFirstName_2">Jimbo</td><td ID="MedicationAuthorLastName_2">Yanick</td><td ID="MedicationTaxonomyCode_2">[id number]</td><td ID="MedicationTaxonomyDesc_2">Nurse Practitioner</td><td ID="MedicationPhoneNumber_2">[phone]</td> [facility] ([facility]) olanzapine 20 MG Oral Tablet [Zyprexa] Zyprexa 10/12/2019 12:0 0:00 AM EST 20 mg by mouth completed <td ID="Me dicationRxNorm_5">[id number]</td><td ID="MedicationMedication_5">Zyprexa</td><td ID="MedicationRoute_5">by mouth</td><td ID="MedicationRouteConcept_5">[id number]</td><td ID="MedicationStartDate_5">10/12/2019</td><td ID="MedicationStopDate_5">06/07/2020</td><td ID="MedicationDosageFrequency_5">at bedtime</td><td ID="MedicationDuration_5">30</td><td ID="MedicationFormulaStrength_5">20 mg</td><td ID="MedicationDosageForm_5">tablet</td><td ID="MedicationDosageFormCode_5"></td><td ID="MedicationDosageDescription_5"></td><td ID="MedicationMedicationId_5">[id number]</td><td ID="MedicationAccount_5">[id number]</td><td ID="MedicationNpid_5">[id number]</td><td ID="MedicationAuthorFirstName_5">Jimbo</td><td ID="MedicationAuthorLastName_5">Yanick</td><td ID="MedicationTaxonomyCode_5">[id number]</td><td ID="MedicationTaxonomyDesc_5">Nurse Practitioner</td><td ID="MedicationPhoneNumber_5">[phone]</td> [facility] ([facility]) topiramate 100 MG Oral Tablet [Topamax] Topamax 10/12/2019 12: 00:00 AM EST 100 mg by mouth completed <td ID="Me dicationRxNorm_7">879373</td><td ID="MedicationMedication_7">Topamax</td><td ID="MedicationRoute_7">by mouth</td><td ID="MedicationRouteConcept_7">D77089</td><td ID="MedicationStartDate_7">10/12/2019</td><td ID="MedicationStopDate_7">06/07/2020</td><td ID="MedicationDosageFrequency_7">twice a day</td><td ID="MedicationDuration_7">30</td><td ID="MedicationFormulaStrength_7">100 mg</td><td ID="MedicationDosageForm_7">tablet</td><td ID="MedicationDosageFormCode_7"></td><td ID="MedicationDosageDescription_7"></td><td ID="MedicationMedicationId_7">[id number]</td><td ID="MedicationAccount_7">[id number]</td><td ID="MedicationNpid_7">[id number]</td><td ID="MedicationAuthorFirstName_7">Jimbo</td><td ID="MedicationAuthorLastName_7">Yanick</td><td ID="MedicationTaxonomyCode_7">[id number]</td><td ID="MedicationTaxonomyDesc_7">Nurse Practitioner</td><td ID="MedicationPhoneNumber_7">[phone]</td> [facility] ([facility]) olanzapine 20 MG Oral Tablet [Zyprexa] Zyprexa 10/12/2019 12:0 0:00 AM EST 20 mg by mouth completed <td ID="Me dicationRxNorm_2">478935</td><td ID="MedicationMedication_2">Zyprexa</td><td ID="MedicationRoute_2">by mouth</td><td ID="MedicationRouteConcept_2">Z21752</td><td ID="MedicationStartDate_2">10/12/2019</td><td ID="MedicationStopDate_2">07/02/2020</td><td ID="MedicationDosageFrequency_2">at bedtime</td><td ID="MedicationDuration_2">30</td><td ID="MedicationFormulaStrength_2">20 mg</td><td ID="MedicationDosageForm_2">tablet</td><td ID="MedicationDosageFormCode_2"></td><td ID="MedicationDosageDescription_2"></td><td ID="MedicationMedicationId_2">[id number]</td><td ID="MedicationAccount_2">[id number]</td><td ID="MedicationNpid_2">[id number]</td><td ID="MedicationAuthorFirstName_2">Jimbo</td><td ID="MedicationAuthorLastName_2">Yanick</td><td ID="MedicationTaxonomyCode_2">[id number]</td><td ID="MedicationTaxonomyDesc_2">Nurse Practitioner</td><td ID="MedicationPhoneNumber_2">[phone]</td> [facility] ([facility]) 24 HR Nifedipine 30 MG Extended Release Oral Tablet [Bret ia] Procardia XL 03/02/2019 12:00:00 AM EDT 30 mg by mouth completed <td ID="MedicationRxNorm_2">821209</td><td ID="MedicationMedication_2">Procardia XL</td><td ID="MedicationRoute_2">by mouth</td><td ID="MedicationRouteConcept_2">O26066</td><td ID="MedicationStartDate_2">03/02/2019</td><td ID="MedicationStopDate_2">06/07/2020</td><td ID="MedicationDosageFrequency_2">once a day</td><td ID="MedicationDuration_2">30</td><td ID="MedicationFormulaStrength_2">30 mg</td><td ID="MedicationDosageForm_2">tablet extended release 24hr</td><td ID="MedicationDosageFormCode_2"></td><td ID="MedicationDosageDescription_2"></td><td ID="MedicationMedicationId_2">[id number]</td><td ID="MedicationAccount_2">[id number]</td><td ID="MedicationNpid_2">[id number]</td><td ID="MedicationAuthorFirstName_2">Jimbo</td><td ID="MedicationAuthorLastName_2">Yanick</td><td ID="MedicationTaxonomyCode_2">[id number]</td><td ID="MedicationTaxonomyDesc_2"> Nurse Practitioner</td><td ID="MedicationPhoneNumber_2">[phone]</td> [facility] ([facility]) Mirtazapine 15 MG Oral Tablet [Remeron] Remeron 03/02/2019 12: 00:00 AM EDT 15 mg by mouth completed <td ID="Me dicationRxNorm_3">593212</td><td ID="MedicationMedication_3">Remeron</td><td ID="MedicationRoute_3">by mouth</td><td ID="MedicationRouteConcept_3">U30454</td><td ID="MedicationStartDate_3">03/02/2019</td><td ID="MedicationStopDate_3">06/07/2020</td><td ID="MedicationDosageFrequency_3">at bedtime</td><td ID="MedicationDuration_3">30</td><td ID="MedicationFormulaStrength_3">15 mg</td><td ID="MedicationDosageForm_3">tablet</td><td ID="MedicationDosageFormCode_3"></td><td ID="MedicationDosageDescription_3"></td><td ID="MedicationMedicationId_3">[id number]</td><td ID="MedicationAccount_3">[id number]</td><td ID="MedicationNpid_3">[id number]</td><td ID="MedicationAuthorFirstName_3">Jimbo</td><td ID="MedicationAuthorLastName_3">Yanick</td><td ID="MedicationTaxonomyCode_3">[id number]</td><td ID="MedicationTaxonomyDesc_3">Nurse Practitioner</td><td ID="MedicationPhoneNumber_3">[phone]</td> [facility] Providers Payer name Policy type / Coverage type Policy ID Covered green party ID Covered green party's relationship to almazan Policy Almazan Plan Information [facility] [id number] Patient [id number] [facility] COMMUNITY [id number] Patient [id number] [facility] I [id number] Self [id number] [facility] I [id number] Self [id number] SELF PAY SELF PAY SELF PAY [facility] [id number] SP [id number] SELF PAY SELF PAY [facility] [id number] SP [id number] SELF PAY GENERAL ACCIDENT NO FAUL O [id number] C [id number] [facility] B [id number] S [id number] [facility] [id number] SP [id number] SELF PAY UNAVAILABLE UNAVAILA BLE BCBS [place] PPO [id number] BLUE CROSS BLUE SHIELD -O/P [id number] 18 [id number] UN COMMUNITY PLAN MCDO [id number] SP [id number] [facility] COMMUNITY PL[facility] [id number] SP [id number] MEDICAID [id number] SP [id number] MEDICAID M [id number] S [id number] SELF PAY ONLY [id number] SP [id number] [facility](MCAID) O [id number] S [id number] [facility] COMMUNITY PLAN 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 [id number] SP [id number] [facility] [id number] SP [id number] Problems, Conditions, and Diagnoses Code Display Name Description Problem Type Effective Dates Data Source(s) F12.20 Cannabis dependence, uncomplicated Cannabis Use Disorder, Moderate Condition 08/03/2021 12:00:00 AM EDT [facility] ([facility]) F17.200 Nicotine dependence, unspecified, uncomp licated Tobacco Use Disorder, Moderate Condition 08/03/2021 12:00:00 AM EDT [facility] ([facility]) F43.12 Post-traumatic stress disorder, chronic Post-traumatic stress disorder, chronic Condition 08/03/2021 12:00:00 AM EDT [facility] ([facility]) F25.0 Schizoaffective disorder, bipolar type S chizoaffective Disorder, Bipolar type Condition 08/03/2021 12:00:00 AM EDT [facility] ([facility]) Surgeries/Procedures Procedure Description Date Indications Data Source(s) Brief Individual Psychotherapy - 30 min 08/03/2021 12:00:00 AM EDT - 08/03/2021 12:00:00 AM EDT [facility] ([facility]) Brief Individual Psychotherapy - 30 min 08/03/2021 12: 00:00 AM EDT [facility] ([facility]) Brief Individual Psychotherapy - 30 min 07/13/2021 12:00:00 AM EDT - 07/13/2021 12:00:00 AM EDT [facility] ([facility]) Brief Individual Psychotherapy - 30 min 07/13/2021 12: 00:00 AM EDT [facility] ([facility]) Extended Individual Psychotherapy - 45 min 06/07/2021 12:00:00 AM EDT - 06/07/2021 12:00:00 AM EDT [facility] ([facility]) Extended Individual Psychotherapy - 45 min 12:00:00 AM EDT [facility] ([facility]) Extended Individual Psychotherapy - 45 min 03/29/2021 12:00:00 AM EDT - 03/29/2021 12:00:00 AM EDT [facility] ([facility]) Extended Individual Psychotherapy - 45 min 12:00:00 AM EDT [facility] ([facility]) Extended Individual Psychotherapy - 45 min 03/15/2021 12:00:00 AM EDT - 03/15/2021 12:00:00 AM EDT [facility] ([facility]) Extended Individual Psychotherapy - 45 min 12:00:00 AM EDT [facility] ([facility]) Extended Individual Psychotherapy - 45 min 01/16/2021 12:00:00 AM EDT - 01/16/2021 12:00:00 AM EDT [facility] ([facility]) Extended Individual Psychotherapy - 45 min 12:00:00 AM EDT [facility] ([facility]) OFFICE OUTPATIENT VISIT 15 MINUTES 01/11 12:00:00 AM EDT - 01/11/2021 12:00:00 AM EDT [facility] ([facility]) OFFICE OUTPATIENT VISIT 15 MINUTES 01/11/2021 12:00:00 AM EDT [facility] ([facility]) Brief Individual Psychotherapy - 30 min 12/28/2020 12:00:00 AM EDT - 12/28/2020 12:00:00 AM EDT [facility] ([facility]) Brief Individual Psychotherapy - 30 min 12/28/2020 12: 00:00 AM EDT [facility] ([facility]) OFFICE OUTPATIENT VISIT 15 MINUTES 12/14 12:00:00 AM EST - 12/14/2020 12:00:00 AM EST [facility] ([facility]) OFFICE OUTPATIENT VISIT 15 MINUTES 12/14/2020 12:00:00 AM EST [facility] ([facility]) TEMPMHCTelemed-Family and client 1 hr. 0 11/09/2020 12:00:00 AM EST - 11/09/2020 12:00:00 AM EST [facility] ([facility]) TEMPMHCTelemed-Family and client 1 hr. 11/09/2020 12:0 0:00 AM EST [facility] ([facility]) TEMPMHCTelemed-Family and client 1 hr. 0 10/26/2020 12:00:00 AM EST - 10/26/2020 12:00:00 AM EST [facility] ([facility]) TEMPMHCTelemed-Family and client 1 hr. 10/26/2020 12:0 0:00 AM EST [facility] ([facility]) TEMPMHCTelemed-Family and client 1 hr. 1 12:00:00 AM EST - 10/12/2020 12:00:00 AM EST [facility] ([facility]) TEMPMHCTelemed-Family and client 1 hr. 10/12/2020 12:0 0:00 AM EST [facility] ([facility]) MHC Telemed E/M Lvl 3--Est pt 10/09/2020 12:00:00 AM EST - 10/09/2020 12:00:00 AM EST [facility] ([facility]) MHC Telemed E/M Lvl 3--Est pt 10/09/2020 12:00:[address] [facility] ([facility]) FAMILY PSYCHOTHERAPY W/PATIENT PRESENT 1 11/29/2019 12:00:00 AM EST - 09/28/2020 12:00:00 AM EST [facility] ([facility]) FAMILY PSYCHOTHERAPY W/PATIENT PRESENT 09/28/2020 12:0 0:00 AM EST [facility] ([facility]) [id number]"Psychotherapy 0 12:00:00 AM EST - 09/22/2020 12:00:00 AM EST [facility] ([facility]) [id number]"Psychotherapy 09/22/2020 12:00:00 AM EST [facility] ([facility]) FAMILY PSYCHOTHERAPY W/PATIENT PRESENT 1 10/17/2019 12:00:00 AM EST - 08/17/2020 12:00:00 AM EST [facility] ([facility]) FAMILY PSYCHOTHERAPY W/PATIENT PRESENT 08/17/2020 12:0 0:00 AM EST [facility] ([facility]) MHC Telemed E/M Lvl 3--Est pt 07/31/2020 12:00:00 AM EDT - 07/31/2020 12:00:00 AM EDT [facility] ([facility]) MHC Telemed E/M Lvl 3--Est pt 07/31/2020 12:00:00 AM E DT [facility] ([facility]) [id number]"Psychotherapy 0 12:00:00 AM EDT - 07/13/2020 12:00:00 AM EDT [facility] ([facility]) [id number]"Psychotherapy 07/13/2020 12:00:00 AM EDT [facility] ([facility]) MHC Telemed E/M Lvl 3--Est pt 07/04/2020 12:00:00 AM EDT - 07/04/2020 12:00:00 AM EDT [facility]med E/M Lvl 3--Est pt 07/04/2020 12:00:00 AM E DT [facility] ([facility]) TEMPMHCTelemed 30" Psychotherapy 020 12:00:00 AM EDT - 06/15/2020 12:00:00 AM EDT [facility] ([facility]) TEMPMHCTelemed 30" Psychotherapy 06/15/2020 12:00:00 A M EDT [facility] ([facility]) Results No Information Social History Code Duration Value Status Description Data Source(s ) Smoking 08/03/2021 12:00:00 AM EDT Current every day smoker co mpleted Current every day smoker [facility] ([facility]) Smoking 07/13/2021 12:00:00 AM EDT Current every day smoker co mpleted Current every day smoker [facility] ([facility]) Smoking 06/07/2021 12:00:00 AM EDT Current every day smoker co mpleted Current every day smoker [facility] ([facility]) Smoking 03/29/2021 12:00:00 AM EDT Current every day smoker co mpleted Current every day smoker [facility] ([facility]) Smoking 03/15/2021 12:00:00 AM EDT Current every day smoker co mpleted Current every day smoker [facility] ([facility]) Smoking 01/16/2021 12:00:00 AM EDT Current every day smoker co mpleted Current every day smoker [facility] ([facility]) Smoking 01/11/2021 12:00:00 AM EDT Current every day smoker co mpleted Current every day smoker [facility] ([facility]) Smoking 12/28/2020 12:00:00 AM EDT Current every day smoker co mpleted Current every day smoker [facility] ([facility]) Smoking 12/14/2020 12:00:00 AM EST Current every day smoker co mpleted Current every day smoker [facility] ([facility]) Smoking 11/09/2020 12:00:00 AM EST Current every day smoker co mpleted Current every day smoker [facility] ([facility]) Smoking 10/26/2020 12:00:00 AM EST Current every day smoker co mpleted Current every day smoker [facility] ([facility]) Smoking 10/12/2020 12:00:00 AM EST Current every day smoker co mpleted Current every day smoker [facility] ([facility]) Smoking 10/09/2020 12:00:00 AM EST Current every day smoker co mpleted Current every day smoker [facility] ([facility]) Smoking 09/28/2020 12:00:00 AM EST Current every day smoker co mpleted Current every day smoker [facility] ([facility]) Smoking 09/22/2020 12:00:00 AM EST Current every day smoker co mpleted Current every day smoker [facility] ([facility]) Smoking 08/17/2020 12:00:00 AM EST Current every day smoker co mpleted Current every day smoker [facility] ([facility]) Smoking 07/31/2020 12:00:00 AM EDT Current every day smoker co mpleted Current every day smoker [facility] ([facility]) Smoking 07/13/2020 12:00:00 AM EDT Current every day smoker co mpleted Current every day smoker [facility] ([facility]) Smoking 07/04/2020 12:00:00 AM EDT Current every day smoker co mpleted Current every day smoker [facility] ([facility]) Smoking 06/15/2020 12:00:00 AM EDT Current every day smoker co mpleted Current every day smoker [facility] ([facility]) Vital Signs ID Date Data Source UNK Name Value Range Interpretation Code Description Data Source(s) Body height 0.00 in Normal (applies to non-numeric resu lts) 0.00 in [facility] ([facility]) Body weight Measured 0.00 lbs Normal (applies to n on-numeric results) 0.00 lbs [facility] ([facility]) Body mass index (BMI) [Ratio] 0.00 kg/m2 No rmal (applies to non-numeric results) 0.00 kg/m2 [facility] Systolic blood pressure 0 mm[Hg] Normal (applies t o non-numeric results) 0 mm[Hg] [facility] ([facility]) Diastolic blood pressure 0 mm[Hg] Normal (applies to non-numeric results) 0 mm[Hg] [facility] ([facility]) Body height 0.00 in Normal (applies to non-numeric resu lts) 0.00 in [facility] ([facility]) Body weight Measured 0.00 lbs Normal (applies to n on-numeric results) 0.00 lbs [facility] ([facility]) Body mass index (BMI) [Ratio] 0.00 kg/m2 No rmal (applies to non-numeric results) 0.00 kg/m2 [facility] Systolic blood pressure 0 mm[Hg] Normal (applies t o non-numeric results) 0 mm[Hg] [facility] ([facility]) Diastolic blood pressure 0 mm[Hg] Normal (applies to non-numeric results) 0 mm[Hg] [facility] ([facility]) Body height 0.00 in Normal (applies to non-numeric resu lts) 0.00 in [facility] ([facility]) Body weight Measured 0.00 lbs Normal (applies to n on-numeric results) 0.00 lbs [facility] ([facility]) Body mass index (BMI) [Ratio] 0.00 kg/m2 No rmal (applies to non-numeric results) 0.00 kg/m2 [facility] Systolic blood pressure 0 mm[Hg] Normal (applies t o non-numeric results) 0 mm[Hg] [facility] ([facility]) Diastolic blood pressure 0 mm[Hg] Normal (applies to non-numeric results) 0 mm[Hg] [facility] ([facility]) Body height 0.00 in Normal (applies to non-numeric resu lts) 0.00 in [facility] ([facility]) Body weight Measured 0.00 lbs Normal (applies to n on-numeric results) 0.00 lbs [facility] ([facility]) Body mass index (BMI) [Ratio] 0.00 kg/m2 No rmal (applies to non-numeric results) 0.00 kg/m2 [facility] Systolic blood pressure 0 mm[Hg] Normal (applies t o non-numeric results) 0 mm[Hg] [facility] ([facility]) Diastolic blood pressure 0 mm[Hg] Normal (applies to non-numeric results) 0 mm[facility]Hg] [facility] Body height 0.00 in Normal (applies to non-numeric resu lts) 0.00 in [facility] ([facility]) Body weight Measured 0.00 lbs Normal (applies to n on-numeric results) 0.00 lbs [facility] ([facility]) Body mass index (BMI) [Ratio] 0.00 kg/m2 No rmal (applies to non-numeric results) 0.00 kg/m2 [facility] Systolic blood pressure 0 mm[Hg] Normal (applies t o non-numeric results) 0 mm[Hg] [facility] ([facility]) Diastolic blood pressure 0 mm[Hg] Normal (applies to non-numeric results) 0 mm[Hg] [facility] ([facility])
[2021-08-04 01:35] LABS: ABG BASE EXCESS 0.3 (-2.0-2.0); ABG HCO3 23.2 MEQ/L (22.0-26.0); ABG PARTIAL PRESSURE O2 98.1 mmHg (75.0-100.0); ABG STANDARD HCO3 24.8 MEQ/L (22.0-26.0); ABG TOTAL CO2 24.2 MEQ/L (22.0-29.0); ABG pH (ARTERIAL) 7.464 UNITS (7.350-7.450)
[2021-08-04 02:12] LABS: ACETAMINOPHEN LEVEL < 2.0 UG/ML (10.0-30.0); ALBUMIN 4.9 GM/DL (3.2-5.2); ALT/SGPT 23 U/L (12-78); BILIRUBIN,DIRECT 0.2 MG/DL (0.0-0.2); BLOOD UREA NITROGEN 19 MG/DL (7-18); CALCIUM LEVEL 9.9 MG/DL (8.5-10.1); CARBON DIOXIDE LEVEL 26 MEQ/L (21-32); CHLORIDE LEVEL 107 MEQ/L (98-107); CK-MB VALUE MASS 1.7 NG/ML (<3.6); CPK CREATINE PHOSPHOKINASE 111 U/L (39-308); CREATININE FOR GFR 0.97 MG/DL (0.70-1.30); ETHYL ALCOHOL (ETHANOL) < 0.003 % (0.000-0.010); GLOMERULAR FILTRATION RATE > 60.0 (>60); GLUCOSE, FASTING 93 MG/DL (70-100); MB/CK RELATIVE INDEX 1.53 (< OR =4); POTASSIUM SERUM 3.2 MEQ/L (3.5-5.1); SALICYLATE LEVEL 6.9 MG/DL (5.0-30.0); SODIUM LEVEL 140 MEQ/L (136-145); TOTAL PROTEIN 8.2 GM/DL (6.4-8.2); TROPONIN I < 0.02 NG/ML (< 0.10)
--- NOTE | 2021-08-04 02:28 | REPVR ---
PROCEDURE INFORMATION: Exam: CT Head without Contrast Exam date and time: 08/04/21 (12:38am) Age: 31 years old Clinical indication: Altered mental status / memory loss TECHNIQUE: Imaging protocol: Computed tomography of the head without contrast Radiation optimization: All CT scans at this facility use at least one of these dose optimization techniques: automated exposure control; mA and/or kV adjustment per patient size (includes targeted exams where dose is matched to clinical indication); or iterative reconstruction. COMPARISON: CT HEAD of 09/14/17 FINDINGS: Brain: Normal. No acute hemorrhage. Unremarkable white matter. No mass effect. Cerebral ventricles: No ventriculomegaly. Paranasal sinuses: Visualized sinuses are unremarkable. No air-fluid levels. Mastoid air cells: Visualized mastoid air cells are well aerated. Bones/joints: Unremarkable. No acute fracture. Soft tissues: Unremarkable. IMPRESSION: No acute intracranial pathology. The brain had a similar appearance in 2016. Electronically signed by: Lupe Colby On 08/04/2021 02:27:49 AM
--- NOTE | 2021-08-04 02:30 | REPVR ---
PROCEDURE INFORMATION: Exam: XR Chest Exam date and time: 08/04/21 (12:32am) Age: 31 years old Clinical indication: AMS, chest pain TECHNIQUE: Imaging protocol: XR of the chest Views: 1 view COMPARISON: Chest films of 01/28/19 FINDINGS: Lungs: Unremarkable. No consolidation. Pleural spaces: Unremarkable. No pleural effusions. No pneumothorax. Heart/Mediastinum: Unremarkable. No cardiomegaly. Bones/joints: Unremarkable. Soft tissues: Bilateral nipple piercings. IMPRESSION: No acute findings. Lung antonio remain clear. Electronically signed by: Lupe Colby On 08/04/2021 02:29:33 AM
[2021-08-04 03:15] VITALS: BP 155/85
--- NOTE | 2021-08-04 07:00 | ECGEPIP ---
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
== END 2021-08-04 03:30 | disposition left against medical advice (07) ==
LOC: M ED 21:17
DX: R41.82 Altered mental status, unspecified (principal); R07.9 Chest pain, unspecified; F41.1 Generalized anxiety disorder; Z79.899 Other long term (current) drug therapy; Z88.0 Allergy status to penicillin

== ENCOUNTER 2022-02-23 14:04 | Emergency (ER) | payer OTHER ==
[~2022-02-23] VITALS: Ht 182.9 cm; Wt 67.4 kg
[~2022-02-23 14:04] MED LIST changes: +FLUV25TA13 PO; -FLUV25TA2 PO; -HALO5TA PO; +HALO5TAB33 PO
[2022-02-23] MEDS ORDERED: OLAN20TA14 (14:39)
[2022-02-23] MEDS ORDERED: MIRT1TAB17 (14:39)
[2022-02-23] MEDS ORDERED: TOPI50TA9 (14:39)
[2022-02-23] MEDS ORDERED: TOPI100T9 (14:39)
[2022-02-23] MEDS ORDERED: DIVA250T67 (14:39)
[2022-02-23] MEDS ORDERED: LAMO100T3 (14:39)
[2022-02-23] MEDS ORDERED: CLON-412 (14:39)
[2022-02-23] MEDS ORDERED: LAMO200T3 (14:39)
[2022-02-23] MEDS ORDERED: CLON0.5T2 (14:39)
[2022-02-23] MEDS ORDERED: LAMO25TA4 (14:39)
[2022-02-23 16:40] LABS: AMORPHOUS SEDIMENT SMALL (NEGATIVE); APPEARANCE, URINE CLOUDY (CLEAR); BACTERIA, URINE AUTO 1+ (NEGATIVE); BILIRUBIN, URINE AUTO NEGATIVE (NEGATIVE); BLOOD, URINE BLOOD NEGATIVE (NEGATIVE); COLOR, URINE YELLOW (YELLOW); GLUCOSE, URINE (UA) AUTO NEGATIVE (NEGATIVE); KETONE, URINE AUTO NEGATIVE (NEGATIVE); LEUKOCYTE ESTERASE, URINE AUTO 3+ (NEGATIVE); MUCUS, URINE SMALL (NEGATIVE); NITRITE, URINE AUTO NEGATIVE (NEGATIVE); PROTEIN, URINE AUTO NEGATIVE (NEGATIVE); RBC, URINE AUTO 11 /HPF (0-3); SPECIFIC GRAVITY URINE AUTO 1.013 (1.002-1.035); SQUAMOUS EPITHELIAL CELL UR AU 0 /HPF (0-6); UROBILINOGEN, URINE AUTO 0.2 mg/dL (0.0-2.0); WBC, URINE AUTO TNTC /HPF (0-3)
[2022-02-23 17:08] LABS: RSV AMPLIFICATION NEGATIVE (NEGATIVE)
[2022-02-23 17:34] LABS: BASO # 0.1 10^3/uL (0.0-0.2); BASO % 0.6 % (0.0-1.0); EOS # 0.4 10^3/uL (0.0-0.5); EOS % 4.1 % (0.0-3.0); HEMOGLOBIN 14.2 g/dl (13.5-17.5); LYMPH # 1.6 10^3/uL (1.5-5.0); LYMPH % 18.9 % (24.0-44.0); MEAN CORPUSCULAR HEMOGLOBIN 31.8 pg (27.0-33.0); MEAN CORPUSCULAR HGB CONC 33.8 g/dl (32.0-36.5); MONO # 1.1 10^3/uL (0.0-0.8); NEUTROPHILS # 5.3 10^3/uL (1.5-8.5); NEUTROPHILS % 62.6 % (36.0-66.0); PLATELET COUNT, AUTOMATED 321 10^3/uL (150-450); RED BLOOD COUNT 4.47 10^6/uL (4.30-6.10); WHITE BLOOD COUNT 8.5 10^3/uL (4.0-10.0)
[2022-02-23 17:58] LABS: BLOOD UREA NITROGEN 21 MG/DL (7-18); CALCIUM LEVEL 9.3 MG/DL (8.5-10.1); CARBON DIOXIDE LEVEL 25 MEQ/L (21-32); CHLORIDE LEVEL 113 MEQ/L (98-107); GLOMERULAR FILTRATION RATE > 60.0 (>60); GLUCOSE, FASTING 96 MG/DL (70-100); POTASSIUM SERUM 4.5 MEQ/L (3.5-5.1); SODIUM LEVEL 144 MEQ/L (136-145)
[2022-02-23 17:59] LABS: GC DNA AMPLIFICATION NEGATIVE (NEGATIVE)
[2022-02-23] MEDS ORDERED: LevoFLOXacin 500 MG TABLET PO ONE (18:05)
[2022-02-23] MEDS ORDERED: LEVO500T4 PO (18:06)
[2022-02-23 18:26] VITALS: BP 135/85
== END 2022-02-23 18:29 | disposition home or self-care (01) ==
LOC: M ED 14:04
DX: N45.2 Orchitis (principal); N39.0 Urinary tract infection, site not specified; I10 Essential (primary) hypertension; E78.5 Hyperlipidemia, unspecified; J45.909 Unspecified asthma, uncomplicated; F41.9 Anxiety disorder, unspecified; F31.9 Bipolar disorder, unspecified; F90.9 Attention-deficit hyperactivity disorder, unspecified type; F91.3 Oppositional defiant disorder; F42.9 Obsessive-compulsive disorder, unspecified; F95.2 Tourette's disorder; F17.210 Nicotine dependence, cigarettes, uncomplicated; Z79.899 Other long term (current) drug therapy; Z88.0 Allergy status to penicillin

== ENCOUNTER 2023-05-29 14:45 | Emergency (ER) | payer OTHER ==
[~2023-05-29] VITALS: Ht 182.9 cm; Wt 66.0 kg
[~2023-05-29 14:45] MED LIST changes: +CLON-412; +CLON0.5T2; +DIVA250T67; +LAMO100T3; +LAMO200T3; +LAMO25TA4; +LEVO1TAB39 PO; +MIRT-84 PO; +MIRT1TAB17; +NIFE-3 PO; -NIFE30TA50 PO; +OLAN20TA14; -REME15TA2 PO; +TOPI-254; +TOPI100T9
[2023-05-29] MEDS: IPRATROPIUM 0.5MG/ALBUTEROL 2.5MG INH SOL UD 3ML (DUONEB) NEB SCH ×2 (17:34→17:35)
[2023-05-29] MEDS ORDERED: VENTAER INH (18:31)
[2023-05-29] MEDS ORDERED: PRED20TA PO (18:31)
[2023-05-29 18:45] VITALS: BP 125/82; TEMP 98.3; O2SAT 98
== END 2023-05-29 18:47 | disposition home or self-care (01) ==
LOC: M ED 14:45
DX: J45.901 Unspecified asthma with (acute) exacerbation (principal); F17.200 Nicotine dependence, unspecified, uncomplicated; Z88.0 Allergy status to penicillin

== ENCOUNTER 2024-02-20 05:50 | Emergency (ER) | payer OTHER ==
[~2024-02-20] VITALS: Ht 185.4 cm; Wt 66.2 kg
[~2024-02-20 05:50] MED LIST changes: -MIRT-62 PO; +MIRT-88 PO; +PRED20TA PO; +TOPI-21; -TOPI-254; +VENTAER INH
[2024-02-20 05:58] VITALS: TEMP 98.8
[2024-02-20] MEDS ORDERED: Flovent PO (06:10)
[2024-02-20 07:15] LABS: BARBITURATES URINE NEGATIVE (NEGATIVE); BENZODIAZEPINES URINE NEGATIVE (NEGATIVE); COCAINE METABOLITE URINE NEGATIVE (NEGATIVE); METHADONE URINE NEGATIVE (NEGATIVE)
[2024-02-20 07:16] LABS: OPIATES URINE NEGATIVE (NEGATIVE); PHENCYCLIDINE URINE NEGATIVE (NEGATIVE)
[2024-02-20 07:17] LABS: AMPHETAMINES LEVEL URINE POSITIVE (NEGATIVE); CANNABINOIDS URINE POSITIVE (NEGATIVE)
[2024-02-20 08:20] LABS: BASO # 0.1 10^3/uL (0.0-0.2); BASO % 0.4 % (0.0-1.0); EOS # 0.1 10^3/uL (0.0-0.5); EOS % 0.9 % (0.0-3.0); HEMATOCRIT 45.1 % (42.0-52.0); HEMOGLOBIN 16.5 g/dl (13.5-17.5); LYMPH # 1.8 10^3/uL (1.5-5.0); MEAN CORPUSCULAR HEMOGLOBIN 32.1 pg (27.0-33.0); MEAN CORPUSCULAR VOLUME 87.7 fl (80.0-96.0); MONO # 1.4 10^3/uL (0.0-0.8); MONO % 12.5 % (2.0-8.0); NEUTROPHILS # 7.8 10^3/uL (1.5-8.5); NEUTROPHILS % 69.8 % (36.0-66.0); PLATELET COUNT, AUTOMATED 283 10^3/uL (150-450); RED BLOOD COUNT 5.14 10^6/uL (4.30-6.10); WHITE BLOOD COUNT 11.1 10^3/uL (4.0-10.0)
[2024-02-20 08:25] LABS: MEAN CORPUSCULAR HGB CONC 36.6 g/dl (32.0-36.5)
[2024-02-20] MEDS: IPRATROPIUM 0.5MG/ALBUTEROL 2.5MG INH SOL UD 3ML (DUONEB) NEB ONE (08:43)
[2024-02-20 08:48] LABS: CK-MB VALUE MASS < 1.0 NG/ML (<3.6)
[2024-02-20 08:49] LABS: ETHYL ALCOHOL (ETHANOL) < 0.003 % (0.000-0.010); LIPASE 31 U/L (12-53)
[2024-02-20 08:51] LABS: ALBUMIN 4.3 G/DL (3.2-5.2); ALKALINE PHOSPHATASE 77 U/L (46-116); ALT/SGPT 17 U/L (7.0-40); AST/SGOT 14 U/L (<34); BILIRUBIN,DIRECT 0.3 MG/DL (<0.4); BILIRUBIN,TOTAL 1.1 MG/DL (0.3-1.2); BLOOD UREA NITROGEN 20 MG/DL (9-23); CALCIUM LEVEL 10.2 MG/DL (8.5-10.1); CARBON DIOXIDE LEVEL 20 MMOL/L (20-31); CHLORIDE LEVEL 107 MMOL/L (98-107); CREATININE FOR GFR 0.89 MG/DL (0.70-1.30); GLOMERULAR FILTRATION RATE > 60.0 (>60); GLUCOSE, FASTING 107 MG/DL (60-100); POTASSIUM SERUM 3.3 MMOL/L (3.5-5.1); SALICYLATE LEVEL < 3.0 MG/DL (<30); SODIUM LEVEL 138 MMOL/L (136-145); TOTAL PROTEIN 7.8 G/DL (5.7-8.2)
[2024-02-20 08:53] LABS: THYROID STIMULATING HORMONE 2.941 uIU/ML (0.55-4.78)
[2024-02-20 08:54] LABS: CPK CREATINE PHOSPHOKINASE 141 U/L (46-171)
[2024-02-20 10:00] VITALS: BP 155/98; O2SAT 100
== END 2024-02-20 10:13 | disposition left against medical advice (07) ==
LOC: M ED 05:50
DX: R06.00 Dyspnea, unspecified (principal); R00.0 Tachycardia, unspecified; I10 Essential (primary) hypertension; J45.909 Unspecified asthma, uncomplicated; I73.00 Raynaud's syndrome without gangrene; F31.9 Bipolar disorder, unspecified; F90.9 Attention-deficit hyperactivity disorder, unspecified type; F17.210 Nicotine dependence, cigarettes, uncomplicated; Z88.0 Allergy status to penicillin; Z79.51 Long term (current) use of inhaled steroids; Z79.899 Other long term (current) drug therapy; Z53.9 Procedure and treatment not carried out, unspecified reason

== ENCOUNTER → 2024-03-25 | Outpatient (REF) ==
[~2024-03-25] MED LIST changes: +Flovent PO
== END ==
LOC: M PLAIMG 14:34
PROVIDERS: ATTEND Internal Medicine
DX: R52 Pain, unspecified (principal)

== ENCOUNTER 2024-10-30 05:47 | Emergency (ER) | payer OTHER ==
[~2024-10-30] VITALS: Ht 182.9 cm; Wt 59.1 kg
[~2024-10-30 05:47] MED LIST changes: -OLAN15TA13 PO; +OLAN15TA69 PO; -OLAN20TA14; +OLAN20TA53
[2024-10-30 06:44] LABS: HEMATOCRIT 48.1 % (42.0-52.0); HEMOGLOBIN 16.9 g/dl (13.5-17.5); MEAN CORPUSCULAR HEMOGLOBIN 31.8 pg (27.0-33.0); MEAN CORPUSCULAR HGB CONC 35.1 g/dl (32.0-36.5); MEAN CORPUSCULAR VOLUME 90.6 fl (80.0-96.0); PLATELET COUNT, AUTOMATED 267 10^3/uL (150-450); RED BLOOD COUNT 5.31 10^6/uL (4.30-6.10); WHITE BLOOD COUNT 12.5 10^3/uL (4.0-10.0)
[2024-10-30 07:17] LABS: ETHYL ALCOHOL (ETHANOL) < 0.003 % (0.000-0.010)
[2024-10-30 07:18] LABS: SALICYLATE LEVEL < 3.0 MG/DL (<30)
[2024-10-30 07:19] LABS: ALBUMIN 4.7 G/DL (3.2-5.2); ALKALINE PHOSPHATASE 79 U/L (40-129); ALT/SGPT 18 U/L (7.0-40); AST/SGOT 15 U/L (<34); BILIRUBIN,DIRECT 0.3 MG/DL (<0.4); BLOOD UREA NITROGEN 15 MG/DL (9-23); CARBON DIOXIDE LEVEL 23 MMOL/L (20-31); CHLORIDE LEVEL 108 MMOL/L (98-107); CREATININE FOR GFR 0.78 MG/DL (0.70-1.30); GLOMERULAR FILTRATION RATE > 60.0 (>60); GLUCOSE, FASTING 127 MG/DL (60-100); POTASSIUM SERUM 3.6 MMOL/L (3.5-5.1); SODIUM LEVEL 140 MMOL/L (136-145)
[2024-10-30 07:21] LABS: THYROID STIMULATING HORMONE 1.275 uIU/ML (0.55-4.78)
[2024-10-30] MEDS: METOCLOPRAMIDE INJ 10MG/2ML VIAL IV ONE (07:23)
[2024-10-30] MEDS: diphenhydrAMINE 50MG/ML VIAL IV ONE (07:23)
[2024-10-30] MEDS: NS (Normal Saline) 0.9% 1,000 ML IV ONE (07:24)
[2024-10-30] MEDS: KETOROLAC 30 MG/ML 1ML VIAL IV ONE (07:24)
[2024-10-30 07:54] LABS: AMPHETAMINES LEVEL URINE NEGATIVE (NEGATIVE)
[2024-10-30 07:55] LABS: BARBITURATES URINE NEGATIVE (NEGATIVE); BENZODIAZEPINES URINE NEGATIVE (NEGATIVE); COCAINE METABOLITE URINE NEGATIVE (NEGATIVE); METHADONE URINE NEGATIVE (NEGATIVE); OPIATES URINE NEGATIVE (NEGATIVE); PHENCYCLIDINE URINE NEGATIVE (NEGATIVE)
[2024-10-30 07:58] LABS: CANNABINOIDS URINE POSITIVE (NEGATIVE)
[2024-10-30] MEDS ORDERED: ACET-907 PO (08:42)
[2024-10-30] MEDS ORDERED: IBUP-1764 PO (10:39)
[2024-10-30] MEDS ORDERED: HOME MED LIST COMPLETE! XX SCH (10:40)
[2024-10-30 13:38] VITALS: BP 140/103; TEMP 98.7; O2SAT 100
== END 2024-10-30 13:51 | disposition home or self-care (01) ==
LOC: M ED 05:47
DX: F31.9 Bipolar disorder, unspecified (principal); F17.200 Nicotine dependence, unspecified, uncomplicated; Z88.0 Allergy status to penicillin
CPT/HCPCS: 80048; 80076; 80143; 80307; 82077; 84443; 85027; 96374; 96375; 99284; J1200; J1885; J2765

== ENCOUNTER 2025-01-04 00:36 | Emergency (ER) | payer OTHER ==
[~2025-01-04] VITALS: Ht 182.9 cm; Wt 62.9 kg
[~2025-01-04 00:36] MED LIST changes: +ACET-907 PO; +FLUV25TA11 PO; -FLUV25TA13 PO; +IBUP-1764 PO
[2025-01-04 00:44] VITALS: BP 178/111; TEMP 97.8; O2SAT 99
== END 2025-01-04 03:07 | disposition left against medical advice (07) ==
LOC: M ED 00:36
DX: Z53.21 Procedure and treatment not carried out due to patient leaving prior to being seen by health care provider (principal)